=== PATIENT | male | born 1940 | race Caucasian/White ===

== ENCOUNTER → 2017-11-16 | Outpatient (CLI) | payer OTHER ==
[2017-11-16 16:45] LABS: BLOOD UREA NITROGEN 7 mg/dl (7-18); CREATININE 0.67 mg/dl (0.60-1.40)
== END | disposition home or self-care (01) ==
LOC: C.LABBFT 12:54
PROVIDERS: ATTEND Urology
DX: C61 Malignant neoplasm of prostate (principal); R33.9 Retention of urine, unspecified

== ENCOUNTER 2020-09-02 16:44 | Observation (INO) ==
[2020-09-02] MEDS ORDERED: ACETAMINOPHEN 325 MG TAB PO PRN (17:28)
[2020-09-02] MEDS ORDERED: ONDANSETRON INJ 2 MG/ML 2 ML VIAL IV PRN (17:28)
--- NOTE | 2020-09-02 17:32 | History & Physical Report ---
Date of Service September 02, 2020 Assessment & Plan (1) Bilateral lower extremity edema: With fairly recent onset of significant pitting edema lower extremities bilaterally of unknown etiology -Admit to medical floor with telemetry Could be from compressive pathology in the pelvis given his history of metastatic prostate cancer-will check CT abdomen/pelvis with IV contrast Could be developing cardiomyopathy-check echocardiogram, proBNP however hears normal -Checked urinalysis-no proteinuria noted and protein and albumin levels in the serum are fairly normal -Checked venous Dopplers of lower extremities-negative for DVT -Checked TSH-normal -will give 1 dose of IV Lasix 20 mg and observe for clinical improvement (2) PAC (premature atrial contraction): With frequent PACs and bigeminy on telemetry and ECG Check echocardiogram Continue to monitor on telemetry Continue home metoprolol (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 which was just changed out at the urology office on 09/03 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, specifically right acetabulum With mildly elevated alkaline phosphatase stable from previous, no bony pain PSA has recently significantly increased to the 80s Is on Zytiga, daily prednisone, and Xtandi Follow with oncology and urology Checking CT abdomen/pelvis as above for lower extremity edema Continue Zytiga and prednisone while here Continue PPI for GI prophylaxis while on chronic prednisone (5) Hyperlipidemia: Continue home statin (6) History of CVA (cerebrovascular accident): Patient reports suspected small CVA in the past Continue aspirin, statin Blood pressure control (7) Chronic indwelling Loredo catheter: As noted above Takes dicyclomine and oxybutynin as needed for bladder spasms (8) HTN (hypertension), benign: Blood pressures are well controlled Continue home metoprolol (9) Depression with anxiety: Stable Continue home paroxetine (10) Hypokalemia: Potassium 3.0 today-likely secondary to recent p.o. Lasix use Replace with p.o. potassium Follow BMP in the morning (11) DVT prophylaxis: Lovenox 40 mg SQ once daily Disposition-admit to medical floor with telemetry Admission and Anticipated Discharge Date Admission Date: September 02, 2020 History of Present Illness Chief Complaint: Lower extremity swelling Primary Care Provider: Shane Maldonado MD This patient is a 80-year-old male with a history of metastatic prostate cancer with mets to the bones and possibly lung, chronic indwelling Loredo for urinary retention, CVA, depression/anxiety, HTN, hyperlipidemia, who presents as a direct admission from the cancer center for significant lower extremity swelling that started several days ago. He was given p.o. Lasix which he took for the last 2 days which did not make improvements. He denies any shortness of breath or chest pains. He denies any abdominal distention. He has no history of congestive heart failure. He has no history of kidney problems. He does have prostate cancer and his PSA has gone up significantly fairly recently to the 80s. He denies any calf pain. He has been eating fairly regularly and not having issues with this and his albumin is fairly normal. His oncologist wanted him to be admitted to expedite the work-up for his lower extremity edema and to help get his swelling down with IV diuretics potentially. Allergies Allergy/AdvReac Type Severity Reaction Status Date / Time No Known Allergies Allergy Unverified 06/13/20 15:01 Home Medications Medication Instructions Recorded Confirmed Type aspirin [Aspirin Low Dose] 81 mg PO DAILY #0 01/10/18 09/02/20 History atorvastatin 40 mg PO HS #0 tab 01/10/18 09/02/20 History dicyclomine 20 mg PO QAM 30 Days #90 cap 01/10/18 09/02/20 History food supplemt, lactose-reduced 1 ea PO DAILY #0 01/10/18 09/02/20 History [Boost] loratadine 10 mg PO DAILY #0 tab 01/10/18 09/02/20 History polyethylene glycol 3350 [Miralax] 17 g PO DAILY #527 g 01/10/18 09/02/20 History psyllium husk (with sugar) [Fiber 1 tsp PO DAILY #0 01/10/18 09/02/20 History (psyllium husk/sugar)] ferrous sulfate 325 mg (65 mg 325 mg PO DAILY 01/08/20 09/02/20 History iron) tablet metoprolol tartrate 25 mg tablet 25 mg PO BID tab 01/08/20 09/02/20 History omeprazole 20 mg capsule,delayed 20 mg PO DAILY 01/08/20 09/02/20 History release paroxetine HCl 20 mg tablet 20 mg PO DAILY 01/08/20 09/02/20 History prednisone 5 mg tablet 5 mg PO DAILY 01/08/20 09/02/20 History oxybutynin chloride 5 mg tablet 5 mg PO BID PRN #60 tab 06/17/20 09/02/20 Rx abiraterone 250 mg tablet 1,000 mg PO DAILY 07/08/20 09/02/20 History leuprolide (6 month) [Lupron Depot 45 mg IM Q4WK 09/02/20 09/02/20 History (6 Month)] Past Med/Surg History Medical History Acute UTI Chronic indwelling Loredo catheter Depression with anxiety History of CVA (cerebrovascular accident) HTN (hypertension), benign Hyperlipidemia Prostate cancer (07/14/13) "Development of urinary difficulty, urinary retention, flaccid bladder, indwelling Loredo catheter PSA elevated at 15.360 July 14, 2013 Status post ultrasound core biopsies July 31, 2014 Adenocarcinoma [place] 3+3, 4+3, and 4+5 Initiation of Lupron therapy which continued until June 2017 Missed injection PSA radha to 89 Restart of Lupron therapy Recheck PSA September 29, 2017 0.390 PSA November 16, 2017 0.072" Surgical History H/O eye surgery History of prostate biopsy Hx of tonsillectomy Family History Sister Diabetes Nephrolithiasis Cancer Other No significant family history Social History Smoking Status: Never smoker Second Hand Exposure: No; Do You Dip or Chew Tobacco: No; Tobacco Cessation Education Requested by Patient: No Hx Alcohol Use: No Hx Substance Use: No Preferred Language: Andorran Communication Ability Comment: Hard of hearing 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 Beliefs That Will Affect Care: None marital status: Single Current Living Situation: Family Current Living Situation Comment: Lives with sister, patient states he cares for self current occupational status: retired Other Information That Helps Us Care for You: No Feels Safe at Home: Yes Safety Concerns: Feels Safe At This Time Assistive Devices: Cane Review of Systems Review of Systems: All systems reviewed & are unremarkable except as noted in HPI & below Denies nausea or vomiting, no diarrhea or constipation, no blood in the stool Physical Exam Constitutional: WD/WN, vitals as above Eyes: PERRL, conjunctivae normal, anicteric sclerae ENMT: external ear and nose normal, oropharynx normal Neck: trachea midline, no thyromegaly Respiratory: normal respiratory effort, lungs clear to auscultation Cardiovascular: Rate/Rhythm: regular rate and regular rhythm (With frequent ectopy) Heart Sounds: no murmur Extremities: + edema (3+ pitting edema of the lower extremities from the feet to the distal thigh); no calf tenderness (And negative Homans' sign) Chest (Breasts): Chest: normal inspection of chest Gastrointestinal (Abdomen): normal bowel sounds, soft, nontender, no hepatosplenomegaly Musculoskeletal: Extremities: no cyanosis and no clubbing Skin: no rashes, warm and dry Neurologic: moves all extremities and awake; no focal motor deficits Psychiatric: A+Ox3, euthymic affect Results & Data Results & Data ([facility]) Laboratory Results 09/02/20 09/02/20 Range/Units 23:40 17:55 Magnesium 2.3 (1.8-2.4) mg/dl NT-Pro-B Natriuret Pep 462 (0-1800) pg/ml TSH 1.030 (0.300-4.500) uIu/ml Urine Color Yellow Urine Appearance Clear (Clear) Urine pH 7.5 (4.5-7.5) Ur Specific [place] 1.012 (1.000-1.030) Urine Protein Negative (Negative) Urine Glucose (UA) Negative (Negative) Urine Ketones Negative (Negative) Urine Blood 1+ H (Negative) Urine Nitrite Negative (Negative) Urine Bilirubin Negative (Negative) Urine Urobilinogen Negative (Negative) Ur Leukocyte Esterase 3+ H (Negative) Urine WBC (Auto) 10-30 H (0-5) /hpf Urine RBC (Auto) 5-10 H (0-4) /hpf U Hyaline Cast (Auto) 5-10 H (0-5) /lpf U Epithel Cells (Auto) 0-5 (0-5) /lpf Urine Bacteria (Auto) 2+ H (Negative) ECG Additional Comments: ECG on 09/02 with normal sinus rhythm, rate 61, frequent PACs in a pattern of bigeminy Code Status & VTE Plan Code Status DNR/DNI VTE Prophylaxis Plan VTE Prophylaxis will be ordered: Yes PG Care Time/CCT Total # of Minutes Spent Total Time Spent with Patient: Total time spent is greater than 50% in coordination of care (as documented) at patient's floor/unit and/or counseling patient: Coding Level of Care Code 02437 Initial Inpt Care Lvl 3 Diagnoses Bilateral lower extremity edema R60.0 PAC (premature atrial contraction) I49.1 Retention of urine R33.9 Prostate cancer C61 Hyperlipidemia E78.5 History of CVA (cerebrovascular accident) Z86.73 Chronic indwelling Loredo catheter Z97.8 HTN (hypertension), benign I10 Depression with anxiety F41.8 Hypokalemia E87.6 DVT prophylaxis Z29.9
[2020-09-02] MEDS ORDERED: POTASSIUM CHLORIDE CRTAB 20 MEQ TABCR PO STA (17:39)
[2020-09-02] MEDS ORDERED: PATIENT'S HEIGHT AND/OR WEIGHT NEEDED SCH (17:45)
[2020-09-02 18:35] LABS: Magnesium 2.3 mg/dl (1.8-2.4); Thyroid Stimulating Hormone 1.03 uIu/ml (0.300-4.500)
[2020-09-02] MEDS ORDERED: OXYBUTYNIN CHLORIDE 5 MG TAB PO PRN (18:52)
[2020-09-02] MEDS ORDERED: FUROSEMIDE 20 MG in SYRINGE 0 ML IV ONE (19:30)
[2020-09-02] MEDS: ENOXAPARIN INJ 40 MG/0.4 ML SYR SQ SCH (20:01)
[2020-09-02] MEDS: ATORVASTATIN 40 MG TAB PO SCH (20:02)
[2020-09-02] MEDS: METOPROLOL TARTRATE 25 MG TAB PO SCH (20:02)
[2020-09-03 00:04] LABS: Appearance Urine Clear (Clear); Bacteria Urine Automated 2+ (Negative); Bilirubin Urine Negative (Negative); Blood Urine 1+ (Negative); Color Urine Yellow; Epithelial Cell Urine Auto 0-5 /lpf (0-5); Glucose Urine UA Negative (Negative); Ketones Urine Negative (Negative); Leukocyte Esterase Urine 3+ (Negative); Nitrite Urine Negative (Negative); Protein Urine Negative (Negative); Specific Gravity Urine 1.012 (1.000-1.030); Urobilinogen Urine Negative (Negative); pH Urine 7.5 (4.5-7.5)
--- NOTE | 2020-09-03 07:08 | Ultrasound Report ---
ULTRASOUND BILATERAL LOWER EXTREMITY VENOUS CLINICAL HISTORY: Lower extremity edema. COMPARISON STUDY: No priors. TECHNIQUE: Real-time, grayscale, and color Doppler sonography of the deep veins of the right and left lower extremity was performed from the inguinal crease to the calf. Compression and augmentation wer e utilized. FINDINGS: There is no sonographic evidence of deep venous thrombosis identified in the right or left lower extremity. The common femoral, superficial femoral, and popliteal veins are patent and normally compressible bilaterally. The greater saphenous vein and the profunda femoris vein at the junction w ith the common femoral vein are clear in both legs. The visualized calf veins are patent bilaterally. IMPRESSION: There is no sonographic evidence of deep venous thrombosis identified in the right or lef t lower extremity. ACT 112: Negative or not required by law. Electronically signed by: Colton Estrada M.D. 09/03/2020 7:07 AM
[2020-09-03 07:38] LABS: Albumin Level 2.5 gm/dl (3.4-5.0); BUN Creatinine Ratio 23.1 (10-20); Bilirubin,Total 0.7 mg/dl (0.2-1); Calcium 7.6 mg/dl (8.5-10.1); Creatinine Clr Calc Pharmacy 155.6 ml/min; Est GFR (African American) 136.7; Globulin 3.1 gm/dl (2.5-4.0); Potassium 2.1 mmol/L (3.5-5.1); Total Protein 5.6 gm/dl (6.4-8.2)
[2020-09-03] MEDS: ASPIRIN 81 MG ECTAB PO SCH (08:15)
[2020-09-03] MEDS: METOPROLOL TARTRATE 25 MG TAB PO SCH ×2 (08:15→20:14)
[2020-09-03] MEDS: DICYCLOMINE HCL 20 MG TAB PO SCH (08:16)
[2020-09-03] MEDS: PSYLLIUM 58.6% POWDER PACKET PO SCH ×2 (08:16→08:23)
[2020-09-03] MEDS: LORATADINE 10 MG TAB PO SCH (08:16)
[2020-09-03] MEDS: PARoxetine HCL 20 MG TAB PO SCH (08:20)
[2020-09-03] MEDS: predniSONE 5 MG TAB PO SCH (08:20)
[2020-09-03] MEDS: FERROUS SULFATE 325 MG TAB PO SCH (08:20)
[2020-09-03] MEDS: PANTOprazole 40 MG TAB PO SCH (08:20)
[2020-09-03 08:33] LABS: Albumin Globulin Ratio 0.8 (0.9-2)
[2020-09-03] MEDS ORDERED: NON-FORMULARY MEDICATION (Food Supplemt, Lactose-Reduced [Boost] 0.04 gram- 1 kcal/mL Liqu PO SCH (09:00)
[2020-09-03] MEDS ORDERED: ABIRATERONE 250 MG PO SCH (09:00)
[2020-09-03] MEDS ORDERED: POTASSIUM CHLORIDE CRTAB 20 MEQ TABCR PO ONE (09:15)
[2020-09-03] MEDS: POLYETHYLENE (MIRALAX) 17 GM PACK PO SCH (09:24)
[2020-09-03] MEDS: POTASSIUM CHLORIDE / WTR 10 MEQ/100 ML PLCT IV SCH ×3 (09:24→12:13)
--- NOTE | 2020-09-03 13:58 | XCELERA ---
[id number]
[2020-09-03] MEDS ORDERED: OPTIRAY 320 100ml IV ONE (14:02)
--- NOTE | 2020-09-03 14:25 | CT Scan Report ---
ABDOMEN AND PELVIS CT WITH IV CONTRAST CT DOSE: 773.44 mGycm HISTORY: met prostate CA,anasarca/LE edema TECHNIQUE: Multiaxial CT images of the abdomen and pelvis were performed following the use of intrave nous contrast. A dose lowering technique was utilized adhering to the principles of ALARA. COMPARISON STUDY: PET CT 11/28/2019. FINDINGS: Stable 4 mm subpleural nodule within the right upper lobe abutting the minor fissure on booker ge 6. A few patchy densities within the lung bases posteriorly favor atelectasis. Trace bilateral ple ural effusions. Small hiatus hernia. No pneumoperitoneum. No pneumatosis. Increase in size and number of the scattered osteoblastic metastatic lesions seen within the pelvis, sacrum, and ribs. The liver , spleen, adrenal glands, pancreas, and kidneys are unremarkable. The main portal vein is patent. No retroperitoneal lymphadenopathy. Mild diffuse body wall edema. There is a Loredo catheter within the b ladder. Moderate thickening of the bladder wall. Right-sided bladder diverticulum. There is a new nec rotic mass which along the posterior aspect of the bladder and prostate gland which measures approxim ately 4.4 x 3.3 cm in size. This appears to invade into the left posterior bladder wall, seminal vesi cles, and left posterior prostate gland. This also demonstrates a fingerlike extension within the lef t perirectal space and appears to abut and possibly invade into the left lateral rectal wall best see n on image 311. This abnormal soft tissue extension within the left perirectal space measures 2.6 cm. This could either represent metastatic disease or recurrent prostate malignancy. There is a single m ildly enlarged left external iliac lymph node on image 280 which measures 1.7 x 1.0 cm. This is new f rom the prior study and also likely represents metastatic disease. Colonic diverticulosis. No evidenc e for acute diverticulitis. Mildly distended gas and stool-filled colon. No transition point to sugge st a bowel obstruction. There is also abnormal thickening on the left bladder base on image 339 which could also represent additional areas of tumor extension into the bladder wall. IMPRESSION: 1. Interval development of a 4.4 x 3.3 cm necrotic lobular mass posterior to the left side of the aleena dder and prostate gland. This appears to invade into the left posterior bladder wall, left peripheral zone of the prostate gland, and seminal vesicles. This could represent metastatic disease or recurre nt prostate malignancy. There is also necrotic lobular soft tissue nodule within the left perirectal space which measures 2.6 cm and appears to abut/invade into the adjacent rectal wall. This is also co nsistent with metastatic disease. 2. A new single enlarged left external iliac lymph node likely representing metastatic disease. 3. Progressive osteoblastic metastatic disease. 4. Trace bilateral pleural effusions. 5. Mild body wall edema. 6. Additional findings as described above. ACT 112: Negative or not required by law. Electronically signed by: Len Robles M.D. 09/03/2020 2:24 PM
--- NOTE | 2020-09-03 16:06 | Electrocardiogram Report ---
Test Reason : Blood Pressure : / mmHG Vent. Rate : 061 BPM Atrial Rate : 061 BPM P-R Int : 160 ms QRS Dur : 092 ms QT Int : 450 ms P-R-T Axes : 043 -02 012 degrees QTc Int : 453 ms Sinus rhythm with Premature atrial complexes in a pattern of bigeminy Cannot rule out Anterior infarct , age undetermined Abnormal ECG No previous ECGs available Confirmed by Salvador Cason ([id number]) on 09/03/2020 4:05:30 PM Referred By: Rach Yadav Confirmed By:Salvador Cason
--- NOTE | 2020-09-03 17:31 | Hospitalist Progress Note ---
Date of Service September 03, 2020 Assessment & Plan (1) Hypokalemia: severe. IV KCL + PO replacement. recheck K and mag this evening, and replace further if necessary. then repeat BMP in am. 2nd to diuresis. (2) Bilateral lower extremity edema: Echo with preserved EF. TSH wnl. u/a without proteinuria. Mild hypoalbuminemia of 2.5 noted which could be contributing. Has varicose veins which can contribute. Abiraterone has listed side effect of edema/swelling. Prednisone can cause fluid retention. No DVT on dopplers. No evidence of liver disease. Based on CT abd/pelvis there does not appear to be compressive pathology in the pelvis causing the edema (no compression of IVC, iliacs, etc). s/p lasix IV yesterday evening with copious diuresis and improved edema. at discharge consider low-dose lasix. 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 Exchanged at the urology office on 09/03/20. 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, specifically right acetabulum With mildly elevated alkaline phosphatase stable from previous, no bony pain PSA has recently significantly increased to the 80s Is on Zytiga, daily prednisone, and Xtandi Follow with oncology and urology Continue Zytiga and prednisone while here Continue PPI for GI prophylaxis while on chronic prednisone CT abd/pelvis findings noted with worsening necrotic tumor (5) Hyperlipidemia: Continue home statin (6) History of CVA (cerebrovascular accident): Patient reports suspected small CVA in the past Continue aspirin, statin (7) Chronic indwelling Loredo catheter: Takes dicyclomine and oxybutynin as needed for bladder spasms (8) HTN (hypertension), benign: Continue home metoprolol (9) Depression with anxiety: Continue home paroxetine (10) DVT prophylaxis: Lovenox 40 mg SQ once daily if K is normal tomorrow am can d/c home then Admission and Anticipated Discharge Date Admission Date: September 02, 2020 Subjective patient eating dinner during the visit. offered no complaints. LE edema present for several weeks according to his recollection. much improved today s/p lasix last pm. flowsheets -- 3.5 L negative. denied any chest pain, abd pain, bladder pain/suprapubic pain, or pain in legs. denied dyspnea. Review of Systems Constitutional: no fever Respiratory: no cough and no dyspnea Cardiovascular: no chest pain Gastrointestinal: no nausea and no vomiting Physical Exam Constitutional: no acute distress and no altered mental status Eyes: strabismus right eye ENMT: external ear and nose normal, oropharynx normal Respiratory: normal respiratory effort, lungs clear to auscultation Cardiovascular: Rate/Rhythm: regular rate and regular rhythm Heart Sounds: normal S1 and normal S2; no murmur Vessels: posterior tibial pulses present and dorsalis pedis pulses present; no JVD Extremities: + edema (1+ B/l ) and + varicosities Gastrointestinal (Abdomen): normal bowel sounds, soft, nontender, no hepatosplenomegaly Psychiatric: Orientation: alert and oriented x 3 Results & Data Results & Data ([facility]) Vital Signs (Past 12 Hours) Vital Signs Temp Pulse Pulse Resp BP Pulse Ox 09/03/20 16:15 72 09/03/20 15:08 36.6 C 63 16 150/83 H 94 09/03/20 11:25 37.2 C 62 16 124/76 96 09/03/20 09:15 60 09/03/20 07:54 36.9 C 62 16 129/76 95 Laboratory Results Laboratory Results - last 24 hr 09/02/20 09/02/20 09/03/20 17:55 23:40 06:20 Sodium 140 Potassium 2.1 L* D Chloride 100 Carbon Dioxide 36 H Anion Gap 4.0 BUN 8 D Creatinine 0.36 L Est Cr Clr Drug Dosing 155.6 Est GFR ( Amer) 136.7 Est GFR (Non-Af Amer) 118.0 BUN/Creatinine Ratio 23.1 H Glucose 100 H Calcium 7.6 L Magnesium 2.3 Total Bilirubin 0.7 AST 46 H ALT 20 Alkaline Phosphatase 139 H NT-Pro-B Natriuret Pep 462 Total Protein 5.6 L Albumin 2.5 L Globulin 3.1 Albumin/Globulin Ratio 0.8 L TSH 1.030 Urine Color Yellow Urine Appearance Clear Urine pH 7.5 Ur Specific [place] 1.012 Urine Protein Negative Urine Glucose (UA) Negative Urine Ketones Negative Urine Blood 1+ H Urine Nitrite Negative Urine Bilirubin Negative Urine Urobilinogen Negative Ur Leukocyte Esterase 3+ H Urine WBC (Auto) 10-30 H Urine RBC (Auto) 5-10 H U Hyaline Cast (Auto) 5-10 H U Epithel Cells (Auto) 0-5 Urine Bacteria (Auto) 2+ H PG Care Time/CCT Total # of Minutes Spent Total Time Spent with Patient: Total time spent is greater than 50% in coordination of care (as documented) at patient's floor/unit and/or counseling patient: Coding Level of Care Code 36325 Subseq Hosp Care Lvl 2 Diagnoses Hypokalemia E87.6 Bilateral lower extremity edema R60.0 Retention of urine R33.9 Prostate cancer C61 Hyperlipidemia E78.5 History of CVA (cerebrovascular accident) Z86.73 Chronic indwelling Loredo catheter Z97.8 HTN (hypertension), benign I10 Depression with anxiety F41.8 DVT prophylaxis Z29.9
[2020-09-03 18:28] LABS: Magnesium 2.1 mg/dl (1.8-2.4)
[2020-09-03] MEDS ORDERED: POTASSIUM CHLORIDE CRTAB 20 MEQ TABCR PO STA (18:31)
[2020-09-03] MEDS: ENOXAPARIN INJ 40 MG/0.4 ML SYR SQ SCH (20:14)
[2020-09-03] MEDS: ATORVASTATIN 40 MG TAB PO SCH (20:14)
[2020-09-03] MEDS ORDERED: POTASSIUM CHLORIDE CRTAB 20 MEQ TABCR PO SCH (22:00)
[2020-09-04] MEDS ORDERED: POTASSIUM CHLORIDE CRTAB 20 MEQ TABCR PO STA ×2 (01:41→08:15)
[2020-09-04 07:31] LABS: Est GFR (African American) 128.3; Est GFR (Non-African American) 110.7; Potassium 3.5 mmol/L (3.5-5.1)
[2020-09-04 07:32] LABS: BUN Creatinine Ratio 16.8 (10-20); Creatinine Clr Calc Pharmacy 133.3 ml/min
[2020-09-04] MEDS: PANTOprazole 40 MG TAB PO SCH (08:57)
[2020-09-04] MEDS: ASPIRIN 81 MG ECTAB PO SCH (08:57)
[2020-09-04] MEDS: PARoxetine HCL 20 MG TAB PO SCH (08:57)
[2020-09-04] MEDS: predniSONE 5 MG TAB PO SCH (08:57)
[2020-09-04] MEDS: METOPROLOL TARTRATE 25 MG TAB PO SCH (08:57)
[2020-09-04] MEDS: FERROUS SULFATE 325 MG TAB PO SCH (08:57)
[2020-09-04] MEDS: LORATADINE 10 MG TAB PO SCH (08:57)
[2020-09-04] MEDS: DICYCLOMINE HCL 20 MG TAB PO SCH (08:58)
[2020-09-04] MEDS: POLYETHYLENE (MIRALAX) 17 GM PACK PO SCH (09:30)
--- NOTE | 2020-09-04 18:01 | Discharge Summary ---
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 He was given p.o. Lasix which he took for the last 2 days which did not make improvements. He denies any shortness of breath or chest pains. He denies any abdominal distention. He has no history of congestive heart failure. He has no history of kidney problems. He does have prostate cancer and his PSA has gone up significantly fairly recently to the 80s. He denies any calf pain. He has been eating fairly regularly and not having issues with this and his albumin is fairly normal. His oncologist wanted him to be admitted to expedite the work-up for his lower extremity edema and to help get his swelling down with IV diuretics potentially. Principal Diagnosis lower extremity edema - likely 2nd to prednisone use, hypoalbuminemia, +/- chemotherapy agents Discharge Exam Constitutional no acute distress and no altered mental status ENMT external ear and nose normal, oropharynx normal Respiratory normal respiratory effort, lungs clear to auscultation Cardiovascular Rate/Rhythm: regular rate and regular rhythm Heart Sounds: normal S1 and normal S2; no murmur Vessels: posterior tibial pulses present and dorsalis pedis pulses present; no JVD Extremities: + edema (<1+ B/l ) and + varicosities Gastrointestinal (Abdomen) normal bowel sounds, soft, nontender, no hepatosplenomegaly Psychiatric Orientation: alert and oriented x 3 Discharge Data Allergies Allergy/AdvReac Type Severity Reaction Status Date / Time No Known Allergies Allergy Unverified 06/13/20 15:01 Consultations physical therapy Ordered Studies 09/02/20 17:38 CT Abd and Pelvis [CT abd pelvis IV con only] Routine IMPRESSION: 1. Interval development of a 4.4 x 3.3 cm necrotic lobular mass posterior to the left side of the bladder and prostate gland. This appears to invade into the left posterior bladder wall, left peripheral zone of the prostate gland, and seminal vesicles. This could represent metastatic disease or recurrent prostate malignancy. There is also necrotic lobular soft tissue nodule within the left perirectal space which measures 2.6 cm and appears to abut/invade into the adjacent rectal wall. This is also consistent with metastatic disease. 2. A new single enlarged left external iliac lymph node likely representing metastatic disease. 3. Progressive osteoblastic metastatic disease. 4. Trace bilateral pleural effusions. 5. Mild body wall edema. 09/02/20 17:39 US venous doppler LE BI Urgent - no DVT either leg. Echocardiogram: * EF 60-65% * moderate LVH * no valvular dysfunction Hospital Course (1) Bilateral lower extremity edema: Edema likely was due to recent prednisone use, hypoalbuminemia, and possibly his chemotherapy agents for prostate cancer. Echo with preserved EF. TSH wnl. u/a without proteinuria. Mild hypoalbuminemia of 2.5 noted which could be contributing. Has varicose veins which can contribute. Abiraterone has listed side effect of edema/swelling. Prednisone can cause fluid retention. No DVT on dopplers. No evidence of liver disease. Based on CT abd/pelvis there does not appear to be compressive pathology in the pelvis causing the edema (no compression of IVC, iliacs, etc). The patient was given IV lasix and had copious diuresis during the short stay with significant improvement in his edema. At discharge he will use low-dose lasix on a PRN basis for edema/weight gain (2) Hypokalemia: Severe. Lowest level 2.1. Received IV KCL + PO replacement. 2nd to diuresis and perhaps other factors. Level was 3.5 at discharge. He will take potassium on a prn basis when he takes his lasix. 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 Loredo Exchanged at the urology office on 09/03/20. Continue Loredo catheter Continue follow-up with urology. (4) Prostate cancer: 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, specifically right acetabulum. With mildly elevated alkaline phosphatase stable from previous. No bony pain. PSA has recently significantly increased to the 80s. Is on Zytiga, daily prednisone, and Xtandi. CT abd/pelvis findings noted with worsening necrotic tumor - oncology aware. To f/u with Dr Adolfo Mix after discharge. (5) Hyperlipidemia: Continue home statin. (6) History of CVA (cerebrovascular accident): Patient reports suspected small CVA in the past. Continue aspirin, statin for secondary prevention. (7) Chronic indwelling Loredo catheter: Takes dicyclomine and oxybutynin as needed for bladder spasms. Follows with [facility] for this. Loredo last exchanged 09/03/20. (8) HTN (hypertension), benign: Continue home metoprolol (9) Depression with anxiety: Continue home paroxetine (10) Ambulatory dysfunction: seen by PT - rolling walker recommended in marielos of cane. cleared for home by PT. Total Time Total Time Spent Total Time Spent (In Minutes): 35 Total Time Includes: Examination of the Patient, Discharge Planning, Medication Reconciliation and Communication With Other Providers Discharge Plan Discharge Items Patient Disposition: Home - Home Health Services Reason For Visit: Swelling of Legs Discharge Diagnosis: Swelling of legs -- improved. Likely due to your prednisone and possibly your chemotherapy drugs. Low blood protein levels also may be contributing to the swelling. Activity: Resume your previous activity Non-emergency contact: Primary Care Provider and Oncologist Call non-emergency contact if: you have any medication questions and your symptoms worsen Follow-up/Referrals: Adolfo Mix DO [Physician] - (see Dr Mix in 5 days ) Shane Maldonado MD [Primary Care Provider] - (Please schedule in 5-7 days with the [facility]) Diet: Regular Addtl Attending Provider Instructions: Mr France, You were admitted for severe swelling of your legs. The swelling improved with use of "water pills" (diuretics). The cause of your swelling is likely a combination of low blood protein levels, prednisone use, and possibly your chemotherapy drugs for the prostate cancer. We did NOT find underactive thyroid gland, protein in your urine, liver disease, or congestive heart failure. These diseases can cause swelling. We also did NOT find blood clots in your legs. Blood clots can cause swelling, too. Again all of the above issues were ruled out. If you have swelling of the legs you can take, on an as needed basis, the following -- * furosemide 20mg every morning as needed If you have to take the furosemide please take a potassium supplement with it. Lastly, because of your varicose veins in your legs, wearing support hose/stockings can help with swelling as well. You can buy these at [employer] or [employer]. The physical therapist saw you today and have recommended you use a walker in place of your cane. The walker will be safer. They also recommended therapy at your home. Return to [facility] if - * you develop chest pain * you develop shortness of breath * you have worsening swelling of the legs despite taking your water pills (furosemide) * any other concerns It was our pleasure caring for you, -Dr Morales Pending Studies at Discharge: No Stand-Alone Forms: My [facility], Smoking Cessation Medications and DC Order Prescriptions: [facility]DME[facility] See Rx Instructions .ROUTE .MEDSUPPLY Qty: 1 RF: 0 furosemide [Lasix] 20 mg tablet 20 mg PO DAILY PRN (Reason: swelling of legs) Qty: 30 RF: 2 potassium chloride 20 mEq tablet extended release 20 meq PO DAILY PRN (Reason: when you take your water pill furosemide) Qty: 30 RF: 2 Continued atorvastatin 40 mg Tablet 40 mg PO HS Qty: 0 RF: 0 polyethylene glycol 3350 [Miralax] 17 gram Powder In Packet 17 g PO DAILY Qty: 527 RF: 0 aspirin [Aspirin Low Dose] 81 mg Tablet,Delayed Release (Dr/Ec) 81 mg PO DAILY Qty: 0 RF: 0 dicyclomine 20 mg Tablet 20 mg PO QAM 30 Days Qty: 90 RF: 11 Fiber (psyllium husk/sugar) 3.4 gram/11 gram Powder 1 tsp PO DAILY Qty: 0 RF: 0 Boost 0.04 gram- 1 kcal/mL Liquid 1 ea PO DAILY Qty: 0 RF: 0 loratadine 10 mg Tablet 10 mg PO DAILY Qty: 0 RF: 0 oxybutynin chloride 5 mg tablet 5 mg PO BID PRN (Reason: bladder spasms) Qty: 60 RF: 1 ferrous sulfate 325 mg (65 mg iron) tablet 325 mg PO DAILY RF: 0 metoprolol tartrate 25 mg tablet 25 mg PO BID RF: 0 omeprazole 20 mg capsule,delayed release(DR/EC) 20 mg PO DAILY RF: 0 paroxetine HCl 20 mg tablet 20 mg PO DAILY RF: 0 prednisone 5 mg tablet 5 mg PO DAILY RF: 0 Lupron Depot (6 Month) 45 mg syringe kit 45 mg IM Q4WK RF: 0 Discharge Orders: Discharge Order (Routine); Ordered 09/04/20 Ordered By: Eliu Morales Admission Data Admit Date/Time: 09/02/20 16:44 Attending Provider: Eliu Morales Admit Provider: Rach Yadav Primary Care Provider: Shane Maldonado Other Providers: [facility],Home Healthcare Other Interventions: Discharge Summary Assessment (RN) Last Done: 09/04/20 18:03 Coding Level of Care Code 99564 OBS Care - Discharge Diagnoses Bilateral lower extremity edema R60.0 Hypokalemia E87.6 Retention of urine R33.9 Prostate cancer C61 Hyperlipidemia E78.5 History of CVA (cerebrovascular accident) Z86.73 Chronic indwelling Loredo catheter Z97.8 HTN (hypertension), benign I10 Depression with anxiety F41.8 Ambulatory dysfunction R26.2
== END 2020-09-04 18:33 | disposition home health service (06) ==
LOC: INTOOBSV 16:44 → SUATTDRO 16:44 → 2N 16:44

== ENCOUNTER 2020-09-16 14:14 | Inpatient (IN) ==
--- NOTE | 2020-09-16 14:56 | Emergency Department Note ---
Impression & Plan Bilateral lower extremity edema, Prostate cancer, Acute hypokalemia, Acute hyponatremia ED Provider Note NAME: GLYNN OWUSU AGE: 80 SEX: M : 1940 ARRIVES VIA: Walk-In INFORMANT: Patient ED PROVIDER(S): Derick Nix DO CHIEF COMPLAINT: Swelling of the legs HPI: Patient is a 80-year-old male who presents to ER for swelling of his bilateral lower extremities. He has a history of prostate cancer. He has been following with Dr. Lamas as well [facility] He was recently admitted and discharged for swelling in the legs over a month ago. They have been getting worse over the past 2 weeks. Has been having trouble getting around. Denies any headache or change in vision. No chest pain or shortness of breath. No cough or runny nose. No loss of taste or smell. No other exacerbating or remitting factors other than the swelling which has been getting worse. Has been taking his Lasix 20 mg once a day and has not missed any doses. ROS: See above HPI for pertinent positives & negatives. A total of 10 systems reviewed and were otherwise negative. PAST MEDICAL HISTORY:See Below PAST SURGICAL HISTORY:See Below FAMILY HISTORY:See Below SOCIAL HISTORY:See Below HOME MEDICATIONS:See Below ALLERGIES:See Below VITALS:See Below PHYSICAL EXAMINATION: GENERAL: Sitting up in bed, alert, well appearing, well nourished, no distress, non-toxic EYE EXAM: normal conjunctiva. OROPHARYNX: no exudate, no erythema, lips, buccal mucosa, and tongue normal and mucous membranes are moist NECK: supple, no nuchal rigidity, no adenopathy, non-tender LUNGS: Clear to auscultation. Normal chest wall mechanics HEART: no murmurs, S1 normal and S2 normal ABDOMEN: abdomen soft, non-tender, normo-active bowel sounds, no masses, no rebound or guarding. BACK: Back is symmetrical on inspection and there is no deformity, no midline tenderness, no CVA tenderness. SKIN: no rashes and no bruising UPPER EXTREMITIES: upper extremities are grossly normal. LOWER EXTREMITIES: Pitting edema plus for bilateral lower extremities tracking up into the thighs NEURO EXAM: Normal sensorium, cranial nerves II-XII grossly intact, normal speech, no gross weakness of arms, no gross weakness of legs. MEDICAL DECISION MAKING: Patient is a 80-year-old male who presents ER for swelling of the lower extremities. IV was established blood work was obtained. [facility] Potassium was recently increased as an outpatient. Labs show no significant leukocytosis or anemia. BMP with mild hyponatremia has significant hypokalemia at 2.6. Calcium was low at 7.8. Bilirubin LFTs was unremarkable. proBNP was normal. Lipase was normal. Covid was negative. With the significant hypokalemia and the need to increase the Lasix did not feel was reasonable to discharge him at this time. He was given 40 mEq of oral potassium and 10 IV. He will eventually need Lasix but will hold off for now until potassium is repleted. Triage Nursing notes reviewed. Limited review of prior medical records performed Vital Signs: reviewed and remarkable for no significant abnormalities Differential diagnosis: Differential diagnoses includes but is not limited to acute coronary syndrome, myocardial infarction, pericarditis, pulmonary embolus, aortic dissection, pneumonia, pneumothorax, musculoskeletal, shingles, esophageal. ER treatment provided: See below Diagnostics interpreted by me: ECG: Sinus rhythm rate of 76 PVCs Inferior Q waves Septal Q waves QTC 474 Cardiac Monitoring: An order was placed for continuous cardiac monitoring. The monitor shows a rate of 80 with sinus rhythm. Laboratory studies: As stated above and show below. Imaging studies: Portable AP upright 1 view of the chest was unremarkable Consultation(s): Discussed with Dr. Sebastian Stokes for further evaluation Procedures: none Critical Care: None Past Med/Surg History Medical History Acute UTI Chronic indwelling Loredo catheter Depression with anxiety History of CVA (cerebrovascular accident) HTN (hypertension), benign Hyperlipidemia Prostate cancer (07/14/13) "Development of urinary difficulty, urinary retention, flaccid bladder, indwelling Loredo catheter PSA elevated at 15.360 July 14, 2013 Status post ultrasound core biopsies July 31, 2014 Adenocarcinoma [place] 3+3, 4+3, and 4+5 Initiation of Lupron therapy which continued until June 2017 Missed injection PSA radha to 89 Restart of Lupron therapy Recheck PSA September 29, 2017 0.390 PSA November 16, 2017 0.072" Surgical History H/O eye surgery History of prostate biopsy Hx of tonsillectomy Family History Sister Diabetes Nephrolithiasis Cancer Other No significant family history Social History Smoking Status: Never smoker Second Hand Exposure: No; Hx Alcohol Use: No Hx Substance Use: No Preferred Language: Serbian Communication Ability: Effective 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: No Beliefs That Will Affect Care: None marital status: Single Current Living Situation: Family Current Living Situation Comment: lives with sister current occupational status: retired Other Information That Helps Us Care for You: No Feels Safe at Home: Yes Safety Concerns: Feels Safe At This Time Assistive Devices: Glasses and Walker Allergies Allergies Allergy/AdvReac Type Severity Reaction Status Date / Time No Known Allergies Allergy Unverified 09/16/20 16:04 Home Meds Home Medications Medication Instructions Recorded Confirmed Boost 1 ea PO DAILY #0 01/10/18 09/16/20 Fiber (psyllium husk/sugar) 1 tsp PO DAILY #0 01/10/18 09/16/20 aspirin [Aspirin Low Dose] 81 mg PO DAILY #0 01/10/18 09/16/20 atorvastatin 40 mg PO QAM #0 tab 01/10/18 09/16/20 loratadine 10 mg PO DAILY PRN #0 tab 01/10/18 09/16/20 polyethylene glycol 3350 [Miralax] 17 g PO DAILY PRN #527 g 01/10/18 09/16/20 ferrous sulfate 325 mg (65 mg 325 mg PO DAILY 01/08/20 09/16/20 iron) tablet metoprolol tartrate 25 mg tablet 25 mg PO DAILY tab 01/08/20 09/16/20 omeprazole 20 mg capsule,delayed 20 mg PO DAILY 01/08/20 09/16/20 release paroxetine HCl 20 mg tablet 20 mg PO HS 01/08/20 09/16/20 prednisone 5 mg tablet 5 mg PO DAILY 01/08/20 09/16/20 Lupron Depot (6 Month) 0 mg IM .[id number] 09/02/20 09/16/20 amlodipine 2.5 mg PO DAILY 09/16/20 09/16/20 denosumab [Xgeva] 0 mg SUBCUT MO 09/16/20 09/16/20 dicyclomine 20 mg PO Q6 PRN 09/16/20 09/16/20 docusate sodium 300 mg PO DAILY 09/16/20 09/16/20 enzalutamide [Xtandi] 160 mg PO DAILY 09/16/20 09/16/20 potassium chloride 20 meq PO DAILY PRN 09/16/20 09/16/20 sennosides 50 mg PO .Q4DAYS PRN 09/16/20 09/16/20 vit C,H-Dv-cysil-lutein-zeaxan 2 tab PO DAILY 09/16/20 09/16/20 [PreserVision AREDS-2] Previous Rx's Medication Instructions Recorded oxybutynin chloride 5 mg tablet 5 mg PO BID PRN #60 tab 06/17/20 furosemide [Lasix] 20 mg PO DAILY PRN #30 tab 09/04/20 walker #1 ea 09/04/20 Results & Data (ED) Vital Signs Vital Signs - 24 hr 09/16/20 14:24 09/16/20 14:50 09/16/20 14:54 Temperature 36.5 C Temperature Source Temporal Artery Scan Pulse Rate 86 81 Pulse Rate [Left Finger] 81 Pulse Rate from SpO2 Sensor 82 Respiratory Rate 18 13 Blood Pressure 128/79 128/92 Blood Pressure [Right Arm] 128/92 Blood Pressure Mean 95 104 Blood Pressure Mean [Right Arm] 104 Blood Pressure Position [Right Arm] Sitting Pulse Oximetry 97 97 97 Oxygen Delivery Method Room Air Room Air Sepsis Recent Fever Within 48 Hours No Sepsis New/Unexplained Change in Mental Status No Sepsis Action Taken by Nursing No Action Required 09/16/20 16:16 09/16/20 16:30 09/16/20 17:00 Temperature Temperature Source Pulse Rate 74 72 77 Pulse Rate [Left Finger] Pulse Rate from SpO2 Sensor 74 71 74 Respiratory Rate 14 16 12 Blood Pressure 147/84 H 156/80 H 123/90 Blood Pressure [Right Arm] Blood Pressure Mean 105 105 101 Blood Pressure Mean [Right Arm] Blood Pressure Position [Right Arm] Pulse Oximetry 100 99 99 Oxygen Delivery Method Sepsis Recent Fever Within 48 Hours Sepsis New/Unexplained Change in Mental Status Sepsis Action Taken by Nursing 09/16/20 17:30 Temperature Temperature Source Pulse Rate 98 H Pulse Rate [Left Finger] Pulse Rate from SpO2 Sensor 97 H Respiratory Rate 18 Blood Pressure 130/94 Blood Pressure [Right Arm] Blood Pressure Mean 106 Blood Pressure Mean [Right Arm] Blood Pressure Position [Right Arm] Pulse Oximetry 96 Oxygen Delivery Method Sepsis Recent Fever Within 48 Hours Sepsis New/Unexplained Change in Mental Status Sepsis Action Taken by Nursing Laboratory Data Result diagrams: 09/16/20 16:13 09/16/20 16:13 Lab Results 09/16/20 09/16/20 09/16/20 Range/Units 16:13 16:13 16:13 WBC 8.53 (4.8-10.8) K/uL RBC 4.40 L (4.7-6.1) M/uL Hgb 13.1 L (14.0-18.0) g/dL Hct 38.3 L (42-52) % MCV 87.0 (80-100) fL MCH 29.8 (25-34) pg MCHC 34.2 (32-36) g/dL RDW Std Deviation 42.4 (36.4-46.3) fL RDW Coeff of Pardeep 13.2 (11.5-14.5) % Plt Count 267 (130-400) K/uL MPV 9.5 (7.4-10.4) fL Immature Gran % (Auto) 0.2 % Neut % (Auto) 85.9 % Lymph % (Auto) 11.1 % Preston % (Auto) 2.8 % Eos % (Auto) 0.0 % Baso % (Auto) 0.0 % Neut # (Auto) 7.32 H (1.4-6.5) K/uL Lymph # (Auto) 0.95 L (1.2-3.4) K/uL Preston # (Auto) 0.24 (0.11-0.59) K/uL Eos # (Auto) 0.00 (0-0.5) K/uL Baso # (Auto) 0.00 (0-0.2) K/uL Immature Gran # (Auto) 0.02 (0.00-0.02) K/uL Sodium 135 L (136-145) mmol/L Potassium 2.6 L (3.5-5.1) mmol/L Chloride 97 L (98-107) mmol/L Carbon Dioxide 34 H (21-32) mmol/L Anion Gap 4.0 (3-11) BUN 15 (7-18) mg/dl Creatinine 0.62 (0.6-1.4) mg/dl Est Cr Clr Drug Dosing Not Reportable Est GFR ( Amer) 109.4 Est GFR (Non-Af Amer) 94.4 BUN/Creatinine Ratio 23.8 H (10-20) Glucose 109 H (70-99) mg/dl Calcium 7.8 L (8.5-10.1) mg/dl Total Bilirubin 0.8 (0.2-1) mg/dl AST 58 H (15-37) U/L ALT 32 (12-78) U/L Alkaline Phosphatase 152 H (45-117) U/L Troponin I 0.026 (0-0.045) ng/ml NT-Pro-B Natriuret Pep 522 (0-1800) pg/ml Total Protein 6.5 (6.4-8.2) gm/dl Albumin 3.0 L (3.4-5.0) gm/dl Globulin 3.5 (2.5-4.0) gm/dl Albumin/Globulin Ratio 0.9 (0.9-2) Lipase 251 (73-393) U/L Random Cortisol 51.72 mcg/dl COVID-19 Eval Order SARS-CoV-2 (PCR) (Negative) Influenza Type A (PCR) (Neg) Influenza Type B (PCR) (Neg) RSV (RT-PCR) (Neg) 09/16/20 09/16/20 Range/Units 17:30 17:30 WBC (4.8-10.8) K/uL RBC (4.7-6.1) M/uL Hgb (14.0-18.0) g/dL Hct (42-52) % MCV (80-100) fL MCH (25-34) pg MCHC (32-36) g/dL RDW Std Deviation (36.4-46.3) fL RDW Coeff of Pardeep (11.5-14.5) % Plt Count (130-400) K/uL MPV (7.4-10.4) fL Immature Gran % (Auto) % Neut % (Auto) % Lymph % (Auto) % Preston % (Auto) % Eos % (Auto) % Baso % (Auto) % Neut # (Auto) (1.4-6.5) K/uL Lymph # (Auto) (1.2-3.4) K/uL Preston # (Auto) (0.11-0.59) K/uL Eos # (Auto) (0-0.5) K/uL Baso # (Auto) (0-0.2) K/uL Immature Gran # (Auto) (0.00-0.02) K/uL Sodium (136-145) mmol/L Potassium (3.5-5.1) mmol/L Chloride (98-107) mmol/L Carbon Dioxide (21-32) mmol/L Anion Gap (3-11) BUN (7-18) mg/dl Creatinine (0.6-1.4) mg/dl Est Cr Clr Drug Dosing Est GFR ( Amer) Est GFR (Non-Af Amer) BUN/Creatinine Ratio (10-20) Glucose (70-99) mg/dl Calcium (8.5-10.1) mg/dl Total Bilirubin (0.2-1) mg/dl AST (15-37) U/L ALT (12-78) U/L Alkaline Phosphatase (45-117) U/L Troponin I (0-0.045) ng/ml NT-Pro-B Natriuret Pep (0-1800) pg/ml Total Protein (6.4-8.2) gm/dl Albumin (3.4-5.0) gm/dl Globulin (2.5-4.0) gm/dl Albumin/Globulin Ratio (0.9-2) Lipase (73-393) U/L Random Cortisol mcg/dl COVID-19 Eval Order CovFluRsv at [facility] SARS-CoV-2 (PCR) NEGATIVE (Negative) Influenza Type A (PCR) Negative (Neg) Influenza Type B (PCR) Negative (Neg) RSV (RT-PCR) Negative (Neg) Administered Medications Discontinued Medications Potassium Chloride (K Lazaro / Wtr) 10 meq in 100 mls @ 100 mls/hr IV Q1H FARHANA Stop: 09/16/20 19:14 Last Admin: 09/16/20 19:41 Dose: 100 mls/hr Documented by: [id number] Infusion: 09/16/20 19:05 Dose: 100 mls/hr Documented by: [id number] Admin: 09/16/20 18:05 Dose: 100 mls/hr Documented by: [id number] Magnesium Sulfate/Dextrose (Magnesium Sulfate / D5w) 1 gm in 100 mls @ 50 mls/hr IV ONE ONE Stop: 09/16/20 19:46 Last Admin: 09/16/20 18:04 Dose: 50 mls/hr Documented by: [id number] Potassium Chloride (Potassium Chloride Crtab 20 Meq Tabcr) 40 meq PO NOW STA Stop: 09/16/20 17:14 Last Admin: 09/16/20 17:56 Dose: 40 meq Documented by: [id number] Discharge Plan Visit Data Chief Complaint: Swelling/Edema to Extremity Stated Complaint: SWELLING/SEEPING IN BOTH LEGS ED Provider: Derick Nix Discharge Problem: Bilateral lower extremity edema, Prostate cancer, Acute hypokalemia, Acute hyponatremia Patient Disposition: Admitted As Inpatient Discharge Instructions Interventions: ED Discharge Assessment Last Done: 09/16/20 19:05
--- NOTE | 2020-09-16 15:11 | XRay Report ---
XR chest 1V portable HISTORY: Atypical Chest Pain COMPARISON: Chest CT 05/26/2020. FINDINGS: No pneumothorax. No pleural effusions. The heart is normal in size. There is a tortuous tho racic aorta, unchanged. No new focal lung consolidations to suggest pneumonia. No evidence for pulmon heladio edema. Old, healed right-sided rib fractures. Prior internal fixation of a right clavicle fractur e. The patient's known pulmonary nodules are now well visualized by this modality. IMPRESSION: No acute process. ACT 112: Negative or not required by law. Electronically signed by: Len Robles M.D. 09/16/2020 3:10 PM
[2020-09-16 16:33] LABS: Hematocrit (blood only) 38.3 % (42-52); Hemoglobin 13.1 g/dL (14.0-18.0); Immature Granulocytes # (auto) 0.02 K/uL (0.00-0.02); Immature Granulocytes % (auto) 0.2 %; Lymphocytes # (auto) 0.95 K/uL (1.2-3.4); Lymphocytes % (auto) 11.1 %; Mean Corpuscular Hemoglobin 29.8 pg (25-34); Mean Corpuscular Hgb Conc 34.2 g/dL (32-36); Mean Platelet Volume 9.5 fL (7.4-10.4); Monocytes # (auto) 0.24 K/uL (0.11-0.59); Monocytes % (auto) 2.8 %; Neutrophils # (auto) 7.32 K/uL (1.4-6.5); Neutrophils % (auto) 85.9 %; Platelet Count 267 K/uL (130-400); RDW Coefficient of Variation 13.2 % (11.5-14.5); RDW Standard Deviation 42.4 fL (36.4-46.3); White Blood Count 8.53 K/uL (4.8-10.8)
[2020-09-16 16:49] LABS: Alanine Aminotransferase 32 U/L (12-78); Aspartate Aminotransferase 58 U/L (15-37); BUN Creatinine Ratio 23.8 (10-20); Blood Urea Nitrogen 15 mg/dl (7-18); Calcium 7.8 mg/dl (8.5-10.1); Carbon Dioxide 34 mmol/L (21-32); Chloride 97 mmol/L (98-107); Est GFR (African American) 109.4; Est GFR (Non-African American) 94.4; Glucose 109 mg/dl (70-99); Lipase 251 U/L (73-393); Potassium 2.6 mmol/L (3.5-5.1); Sodium 135 mmol/L (136-145)
[2020-09-16 16:54] LABS: Albumin Globulin Ratio 0.9 (0.9-2); Alkaline Phosphatase 152 U/L (45-117); Bilirubin,Total 0.8 mg/dl (0.2-1); Globulin 3.5 gm/dl (2.5-4.0); NT Pro B Type Natriuretic Pept 522 pg/ml (0-1800); Total Protein 6.5 gm/dl (6.4-8.2); Troponin I 0.026 ng/ml (0-0.045)
[2020-09-16] MEDS ORDERED: POTASSIUM CHLORIDE CRTAB 20 MEQ TABCR PO STA (17:13)
--- NOTE | 2020-09-16 17:35 | History & Physical Report ---
Date of Service September 16, 2020 Assessment & Plan (1) Bilateral lower extremity edema: Patient once again returned with significant lower extremity edema causing ambulatory dysfunction. During his last admission he had compressive lymphadenopathy ruled out with CT abdomen pelvis with IV contrast. Echocardiogram showed preserved systolic function. No significant proteinuria is noted on urinalysis although nutritionally he has low albumin which could contribute to third space fluid. At that time he had a negative venous Doppler study as well as a normal TSH. Patient will be diuresed with Lasix augmented with copious amounts of potassium magnesium and once again have a Doppler study to rule out DVT as he is at risk given his malignancy. Patient states he lives with friends he is unclear whether he was taking any diuretic or not. 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 No significant bony pending at this time. Follows with oncology neurology. Is on Lupron injections and previously was on Xtandi and Xgeva. He is on daily prednisone therapy at 5 and we will check random and an a.m. cortisol continue his Xgeva while in the hospital (3) Urinary retention: Patient has a chronic indwelling Loredo catheter (4) Dyslipidemia: Continues on atorvastatin (5) Hypertension: Continues on metoprolol for secondary risk reduction with aspirin and statin as mentioned (6) Depression with anxiety: reMains on paroxetine (7) DVT prophylaxis: Lovenox for DVT prevention History of Present Illness Primary Care Provider: Issac Morton MD 80-year-old male recently discharged on 04 September for [facility] after presenting with massive bilateral lower extremity swelling and hypokalemia. The patient has associated metastatic prostate cancer with mets to bones possibly lung. He is a longstanding indwelling Loredo catheter and during that last admission he was chronically hypoalbuminemic. At that time he had CT scan abdomen pelvis which showed necrotic mass associate with his prostate. No compressive lymphadenopathy in his abdomen. There is no evidence of any renal thromboembolism causing lower extremity swelling. An echocardiogram had preserv ed systolic function. During hospital stay he was diuresed with Lasix and sent out on Lasix and potassium however he represents 09/16/2020 with progressive swelling over the last 2 weeks and massive edema causing ambulation problems. He is known to have a potassium of 2.6 is once again recommended for admission to intensive medicine lower extremity swelling. Allergies Allergy/AdvReac Type Severity Reaction Status Date / Time No Known Allergies Allergy Unverified 09/16/20 16:04 Home Medications Medication Instructions Recorded Confirmed Type Boost 1 ea PO DAILY #0 01/10/18 09/16/20 History Fiber (psyllium husk/sugar) 1 tsp PO DAILY #0 01/10/18 09/16/20 History aspirin [Aspirin Low Dose] 81 mg PO DAILY #0 01/10/18 09/16/20 History atorvastatin 40 mg PO QAM #0 tab 01/10/18 09/16/20 History loratadine 10 mg PO DAILY PRN #0 tab 01/10/18 09/16/20 History polyethylene glycol 3350 [Miralax] 17 g PO DAILY PRN #527 g 01/10/18 09/16/20 History ferrous sulfate 325 mg (65 mg 325 mg PO DAILY 01/08/20 09/16/20 History iron) tablet metoprolol tartrate 25 mg tablet 25 mg PO DAILY tab 01/08/20 09/16/20 History omeprazole 20 mg capsule,delayed 20 mg PO DAILY 01/08/20 09/16/20 History release paroxetine HCl 20 mg tablet 20 mg PO HS 01/08/20 09/16/20 History prednisone 5 mg tablet 5 mg PO DAILY 01/08/20 09/16/20 History oxybutynin chloride 5 mg tablet 5 mg PO BID PRN #60 tab 06/17/20 09/16/20 Rx Lupron Depot (6 Month) 0 mg IM .[id number] 09/02/20 09/16/20 History furosemide [Lasix] 20 mg PO DAILY PRN #30 tab 09/04/20 09/16/20 Rx walker #1 ea 09/04/20 09/16/20 Rx amlodipine 2.5 mg PO DAILY 09/16/20 09/16/20 History denosumab [Xgeva] 0 mg SUBCUT MO 09/16/20 09/16/20 History dicyclomine 20 mg PO Q6 PRN 09/16/20 09/16/20 History docusate sodium 300 mg PO DAILY 09/16/20 09/16/20 History enzalutamide [Xtandi] 160 mg PO DAILY 09/16/20 09/16/20 History potassium chloride 20 meq PO DAILY PRN 09/16/20 09/16/20 History sennosides 50 mg PO .[id number] PRN 09/16/20 09/16/20 History vit C,R-Gn-beypn-lutein-zeaxan 2 tab PO DAILY 09/16/20 09/16/20 History [PreserVision AREDS-2] Past Med/Surg History Medical History Acute UTI Chronic indwelling Loredo catheter Depression with anxiety History of CVA (cerebrovascular accident) HTN (hypertension), benign Hyperlipidemia Prostate cancer (07/14/13) "Development of urinary difficulty, urinary retention, flaccid bladder, indwelling Loredo catheter PSA elevated at 15.360 July 14, 2013 Status post ultrasound core biopsies July 31, 2014 Adenocarcinoma Mirella 3+3, 4+3, and 4+5 Initiation of Lupron therapy which continued until June 2017 Missed injection PSA radha to 89 Restart of Lupron therapy Recheck PSA September 29, 2017 0.390 PSA November 16, 2017 0.072" Surgical History H/O eye surgery History of prostate biopsy Hx of tonsillectomy Family History Sister Diabetes Nephrolithiasis Cancer Other No significant family history Social History Smoking Status: Never smoker Second Hand Exposure: No; Hx Alcohol Use: No Hx Substance Use: No Preferred Language: Macedonian Communication Ability: Effective Mini Shifter Required: No Beliefs That Will Affect Care: None marital status: Single Current Living Situation: Family Current Living Situation Comment: Lives with sister, patient states he cares for self current occupational status: retired Feels Safe at Home: Yes Assistive Devices: Cane Review of Systems Review of Systems: Mild distress and fatigue patient mostly bothered by lower extremity swelling and weight no headache, blurry or double vision no speech or swallowing issues no chest pain, pressure or palpitations no shortness of breath, cough or wheezes no abdominal pain, nausea or vomiting, diarrhea or constipation has a chronic urinary catheter no focal joint pain navicular extremity swelling ambulatory dysfunction because of it no back pain, CVA tenderness or radicular pain no bruising, bleeding or rashes no focal signs of weakness or numbness or altered sensation no complaints of anxiety or depression.. Physical Exam Physical Exam: The patient appeared chronically ill not well informed regarding his medical care or treatment Vital signs as documented. Head exam is normocephalic atraumatic no scleral icterus Neck is without JVD, thyromegaly, or carotid bruits. Lungs are clear to auscultation, no focal loss of breath sounds Cardiac exam, Rhythm is regular.. No murmurs, rubs or gallops. Abdominal exam reveals normal bowel sounds, soft non tender, no masses Extremities massive pretibial and pedal edema is present no complaints of pain or focal loss one side versus the other No complaints of hip pain at site of metastatic disease Skin is with minor skin changes to his lower extremities Psychologically is without concerns for anxiety or depression Results & Data Results & [facility] ([facility]) Vital Signs (Past 12 Hours) Vital Signs Temp Pulse Pulse Resp BP BP Pulse Ox 09/16/20 14:54 97 09/16/20 14:50 81 17 128/92 98 09/16/20 14:24 97.7 F 86 18 128/79 97 PG Care Time/CCT Total # of Minutes Spent Total Time Spent with Patient: Total time spent is greater than 50% in coordination of care (as documented) at patient's floor/unit and/or counseling patient: Coding Level of Care Code 15662 Initial Inpt Care Lvl 3 Diagnoses Bilateral lower extremity edema R60.0 Prostate cancer C61 Urinary retention R33.9 Dyslipidemia E78.5 Hypertension I10 Depression with anxiety F41.8 DVT prophylaxis Z29.9
[2020-09-16] MEDS ORDERED: MAGNESIUM SULFATE / D5W 1 GM/100 ML BAG IV ONE (17:47)
[2020-09-16] MEDS: POTASSIUM CHLORIDE / WTR 10 MEQ/100 ML PLCT IV SCH ×2 (18:05→19:41)
[2020-09-16 18:30] LABS: Influenza A virus by PCR Negative (Neg); Influenza B virus by PCR Negative (Neg); RSV by PCR Negative (Neg); SARS CoV2 RNA(COVID-19) InHosp NEGATIVE (Negative)
--- NOTE | 2020-09-16 19:25 | Ultrasound Report ---
BILATERAL LOWER EXTREMITY VENOUS DOPPLER HISTORY: bilateral lower extremity edema COMPARISON STUDY: None. FINDINGS: There is normal compressibility, flow, and augmentation within the bilateral lower extremit y deep venous systems. IMPRESSION: No DVT within the right or left lower extremity. ACT 112: Negative or not required by law. Electronically signed by: Len Robles M.D. 09/16/2020 7:23 PM
[2020-09-16] MEDS ORDERED: ACETAMINOPHEN 325 MG TAB PO PRN (19:39)
[2020-09-16] MEDS ORDERED: ALUMINUM/MAGNESIUM SUSP 30 ML UDC PO PRN (19:39)
[2020-09-16] MEDS ORDERED: PATIENT'S HEIGHT AND/OR WEIGHT NEEDED SCH (19:45)
[2020-09-16] MEDS ORDERED: FUROSEMIDE 40 MG/4 ML VIAL IV SCH (21:00)
[2020-09-16] MEDS: POTASSIUM CHLORIDE CRTAB 20 MEQ TABCR PO SCH (21:37)
[2020-09-16] MEDS: ENOXAPARIN INJ 40 MG/0.4 ML SYR SQ SCH (21:37)
[2020-09-16] MEDS: PARoxetine HCL 20 MG TAB PO SCH (21:37)
[2020-09-17 07:50] LABS: BUN Creatinine Ratio 24.6 (10-20); Calcium 7.5 mg/dl (8.5-10.1); Creatinine Clr Calc Pharmacy 142.6 ml/min; Est GFR (African American) 128.3; Est GFR (Non-African American) 110.7; Magnesium 2.1 mg/dl (1.8-2.4); Potassium 2.7 mmol/L (3.5-5.1)
[2020-09-17] MEDS: PSYLLIUM 58.6% POWDER PACKET PO SCH (08:34)
[2020-09-17] MEDS: ASPIRIN 81 MG ECTAB PO SCH (08:35)
[2020-09-17] MEDS: DOCUSATE SODIUM 100 MG CAP PO SCH (08:35)
[2020-09-17] MEDS: POTASSIUM CHLORIDE CRTAB 20 MEQ TABCR PO SCH ×2 (08:36→20:25)
[2020-09-17] MEDS: METOPROLOL TARTRATE 25 MG TAB PO SCH (08:37)
[2020-09-17] MEDS: ATORVASTATIN 40 MG TAB PO SCH (08:37)
[2020-09-17] MEDS: amLODIPine BESYLATE 5 MG TAB PO SCH (08:37)
[2020-09-17] MEDS: predniSONE 5 MG TAB PO SCH (08:38)
[2020-09-17] MEDS: PANTOprazole 40 MG TAB PO SCH (08:38)
[2020-09-17] MEDS ORDERED: NON-FORMULARY MEDICATION (Food Supplemt, Lactose-Reduced [Boost] 0.04 gram- 1 kcal/mL Liqu PO SCH (09:00)
[2020-09-17 11:37] LABS: BUN Creatinine Ratio 17.1 (10-20); Calcium 7.5 mg/dl (8.5-10.1); Creatinine Clr Calc Pharmacy 105.1 ml/min; Est GFR (African American) 113.2; Est GFR (Non-African American) 97.7; Potassium 2.9 mmol/L (3.5-5.1)
[2020-09-17] MEDS: FUROSEMIDE 40 MG in SYRINGE 0 ML IV SCH ×2 (12:37→20:24)
--- NOTE | 2020-09-17 12:53 | Electrocardiogram Report ---
Test Reason : Blood Pressure : / mmHG Vent. Rate : 076 BPM Atrial Rate : 076 BPM P-R Int : 142 ms QRS Dur : 084 ms QT Int : 422 ms P-R-T Axes : 029 -15 018 degrees QTc Int : 474 ms Sinus rhythm with Premature atrial complexes with Aberrant conduction Abnormal ECG When compared with ECG of 02-SEP-2020 21:45, No significant change was found Confirmed by David Lozano ([id number]) on 09/17/2020 12:52:46 PM Referred By: ED Confirmed By:Bolivar Lozano
[2020-09-17] MEDS ORDERED: POTASSIUM CHLORIDE CRTAB 20 MEQ TABCR PO STA (14:16)
--- NOTE | 2020-09-17 16:15 | Hospitalist Progress Note ---
Date of Service September 17, 2020 Assessment & Plan (1) Bilateral lower extremity edema: Patient once again returned with significant lower extremity edema causing ambulatory dysfunction. During his last admission he had compressive lymphadenopathy ruled out with CT abdomen pelvis with IV contrast. Echocardiogram (09-03-20) showed preserved systolic function. No significant proteinuria is noted on urinalysis although nutritionally he has low albumin which could contribute to third space fluid. At that time, normal TSH. Patient will be diuresed with Lasix augmented with copious amounts of potassium magnesium Patient states he lives with friends he is unclear whether he was taking any diuretic or not. 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 No significant bony pending at this time. Follows with oncology neurology. Is on Lupron injections and previously was on Xtandi and Xgeva. He is on daily prednisone therapy at 5 and we will check random and an a.m. cortisol continue his Xgeva while in the hospital (4) Urinary retention: Patient has a chronic indwelling Loredo catheter (5) Dyslipidemia: Continues on atorvastatin (6) Hypertension: Continues on metoprolol for secondary risk reduction with aspirin and statin as mentioned (7) Depression with anxiety: reMains on paroxetine (8) DVT prophylaxis: Lovenox for DVT prevention Admission and Anticipated Discharge Date Admission Date: September 16, 2020 Subjective Patient reports 1 week of worsening lower extremity edema in both legs Denies sob, cough, dysuria No fever or chills NO change in appetite Denies calf pain Review of Systems Constitutional: no fever, no chills, no fatigue, no weakness, no anorexia, no weight loss and no weight gain Ear, Nose, Mouth, Throat: no nasal congestion, no sore throat and no dysphagia Respiratory: no cough and no dyspnea Cardiovascular: + edema; no chest pain, no dyspnea on exertion, no orthopnea and no palpitations Gastrointestinal: no abdominal pain, no nausea, no vomiting, no hematemesis, no dysphagia, no constipation, no diarrhea/loose stools, no blood in stools and no melena Genitourinary: no dysuria and no hematuria Musculoskeletal: no back pain, no joint pain, no myalgia and no muscle weakness Integumentary: no rash, no lesions, no skin ulcer, no erythema, no dry skin and no pruritus Neurologic: no falls, no localized weakness, no generalized weakness, no numbness, no paresthesia, no tremor(s) and no headache(s) Psychiatric: no depression, no suicidal ideation, no homicidal ideation and no anxiety Endocrine: no cold intolerance and no heat intolerance Hematologic / Lymphatic: no easy bleeding and no easy bruising Physical Exam Constitutional: well developed and well nourished; no acute distress Eyes: PERRL, conjunctivae normal, anicteric sclerae ENMT: Mouth: oral mucous membranes not dry Respiratory: normal respiratory effort; no respiratory distress and no labored breathing Auscultation: lungs clear to auscultation bilaterally; no crackles, no rales, no rhonchi and no wheezes Cardiovascular: Rate/Rhythm: regular rate and regular rhythm Heart Sounds: no murmur and no cardiac rub Vessels: normal peripheral pulses and radial pulses present; no JVD Extremities: + edema (3+ bilateral LE edema) Gastrointestinal (Abdomen): Inspection/Auscultation: abdomen normal to inspection and normal bowel sounds; abdomen not distended Percussion/Palpation: abdomen soft; abdomen nontender, no guarding, abdomen not rigid and no hepatosplenomegaly Musculoskeletal: Head/Neck/Chest: normocephalic and head atraumatic Spine: no cervical spinal tenderness, no cervical muscular tenderness, no thoracic spinal tenderness and no lumbar spinal tenderness Skin: no rashes, warm and dry Neurologic: CN's II-XI intact bilaterally and moves all extremities Motor/Sensory: no tremor and no sensory deficit Psychiatric: Orientation: alert, oriented to person, oriented to place and oriented to time Apperance: appropriately groomed; not disheveled Affect: euthymic affect; no anxious affect and no tearful affect Genitourinary: no Loredo catheter Results & Data Results & Data ([facility]) Vital Signs (Past 12 Hours) Vital Signs Temp Pulse Pulse Resp BP Pulse Ox 09/17/20 15:46 36.9 C 82 16 153/82 H 97 09/17/20 11:24 36.3 C L 66 16 149/79 H 93 09/17/20 08:00 90 09/17/20 07:31 36.8 C 73 16 141/80 H 94 PG Care Time/CCT Total # of Minutes Spent Total Time Spent with Patient: Total time spent is greater than 50% in coordination of care (as documented) at patient's floor/unit and/or counseling patient: Coding Level of Care Code 20404 Subseq Hosp Care Lvl 2 Diagnoses Bilateral lower extremity edema R60.0 Acute hypokalemia E87.6 Prostate cancer C61 Urinary retention R33.9 Dyslipidemia E78.5 Hypertension I10 Depression with anxiety F41.8 DVT prophylaxis Z29.9
[2020-09-17] MEDS: XTANDI: ORDER AWAITING ACTION SCH ×2 (19:15→23:35)
[2020-09-17] MEDS: PARoxetine HCL 20 MG TAB PO SCH (20:25)
[2020-09-17] MEDS: ENOXAPARIN INJ 40 MG/0.4 ML SYR SQ SCH (20:25)
[2020-09-18 07:11] LABS: Hematocrit (blood only) 37.5 % (42-52); Mean Corpuscular Hgb Conc 34.7 g/dL (32-36); Mean Corpuscular Volume 86.4 fL (80-100); Mean Platelet Volume 9.2 fL (7.4-10.4); Platelet Count 242 K/uL (130-400); RDW Standard Deviation 41.5 fL (36.4-46.3); Red Blood Count 4.34 M/uL (4.7-6.1); White Blood Count 7.47 K/uL (4.8-10.8)
[2020-09-18 07:41] LABS: BUN Creatinine Ratio 18.5 (10-20); Calcium 7.1 mg/dl (8.5-10.1); Creatinine Clr Calc Pharmacy 161.9 ml/min; Est GFR (African American) 135.2; Est GFR (Non-African American) 116.6; Magnesium 1.9 mg/dl (1.8-2.4); Phosphorus 1.7 mg/dl (2.5-4.9)
[2020-09-18] MEDS ORDERED: POTASSIUM CHLORIDE CRTAB 20 MEQ TABCR PO STA (07:44)
[2020-09-18] MEDS ORDERED: POTASSIUM PHOS 3 MMOL/1 ML INFUSION IV STA (07:46)
[2020-09-18] MEDS ORDERED: POTASSIUM PHOSPHATE 15 MMOL in SODIUM CHLORIDE 0.9% 250 ML IV ONE (08:15)
[2020-09-18] MEDS: predniSONE 5 MG TAB PO SCH (08:52)
[2020-09-18] MEDS: METOPROLOL TARTRATE 25 MG TAB PO SCH (08:52)
[2020-09-18] MEDS: PANTOprazole 40 MG TAB PO SCH (08:53)
[2020-09-18] MEDS: amLODIPine BESYLATE 5 MG TAB PO SCH (08:53)
[2020-09-18] MEDS: ASPIRIN 81 MG ECTAB PO SCH (08:53)
[2020-09-18] MEDS: ATORVASTATIN 40 MG TAB PO SCH (08:54)
[2020-09-18] MEDS: PSYLLIUM 58.6% POWDER PACKET PO SCH (08:54)
[2020-09-18] MEDS: POTASSIUM CHLORIDE / WTR 10 MEQ/100 ML PLCT IV SCH ×4 (08:58→12:31)
[2020-09-18] MEDS: FUROSEMIDE 40 MG in SYRINGE 0 ML IV SCH ×2 (09:00→20:07)
[2020-09-18] MEDS: DOCUSATE SODIUM 100 MG CAP PO SCH (09:00)
[2020-09-18] MEDS: XTANDI: ORDER AWAITING ACTION SCH ×3 (09:43→23:22)
--- NOTE | 2020-09-18 14:10 | Hospitalist Progress Note ---
Date of Service September 18, 2020 Assessment & Plan (1) Bilateral lower extremity edema: Patient once again returned with significant lower extremity edema causing ambulatory dysfunction. During his last admission he had compressive lymphadenopathy ruled out with CT abdomen pelvis with IV contrast. Echocardiogram (09-03-20) showed preserved systolic function. No significant proteinuria is noted on urinalysis although nutritionally he has low albumin which could contribute to third space fluid. At that time, normal TSH. Patient will be diuresed with Lasix augmented with copious amounts of potassium magnesium Patient states he lives with friends he is unclear whether he was taking any diuretic or not. 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 No significant bony pending at this time. Follows with oncology neurology. Is on Lupron injections and previously was on Xtandi and Xgeva. He is on daily prednisone therapy at 5 and we will check random and an a.m. cortisol continue his Xgeva while in the hospital (5) Urinary retention: Patient has a chronic indwelling Loredo catheter (6) Dyslipidemia: Continues on atorvastatin (7) Hypertension: Continues on metoprolol for secondary risk reduction with aspirin and statin as mentioned (8) Depression with anxiety: reMains on paroxetine (9) DVT prophylaxis: Lovenox for DVT prevention Admission and Anticipated Discharge Date Admission Date: September 16, 2020 Subjective Patient states swelling is much better than on arrival Denies sob, cough No chest pain No nausea or vomiting Tolerating diet No constipation or diarrhea Ambulating with PT Review of Systems Constitutional: no fever, no chills, no fatigue, no weakness, no anorexia, no weight loss and no weight gain Ear, Nose, Mouth, Throat: no nasal congestion, no sore throat and no dysphagia Respiratory: no cough and no dyspnea Cardiovascular: no chest pain, no dyspnea on exertion, no orthopnea and no palpitations Gastrointestinal: no abdominal pain, no nausea, no vomiting, no hematemesis, no dysphagia, no constipation, no diarrhea/loose stools, no blood in stools and no melena Genitourinary: no dysuria and no hematuria Musculoskeletal: no back pain, no joint pain, no myalgia and no muscle weakness Integumentary: no rash, no lesions, no skin ulcer, no erythema, no dry skin and no pruritus Neurologic: no falls, no localized weakness, no generalized weakness, no numbness, no paresthesia, no tremor(s) and no headache(s) Psychiatric: no depression, no suicidal ideation, no homicidal ideation and no anxiety Endocrine: no cold intolerance and no heat intolerance Hematologic / Lymphatic: no easy bleeding and no easy bruising Physical Exam Constitutional: well developed and well nourished; no acute distress Eyes: PERRL, conjunctivae normal, anicteric sclerae (exotropia left eye) ENMT: Mouth: oral mucous membranes not dry Respiratory: normal respiratory effort; no respiratory distress and no labored breathing Auscultation: lungs clear to auscultation bilaterally; no crackles, no rales, no rhonchi and no wheezes Cardiovascular: Rate/Rhythm: regular rate and regular rhythm Heart Sounds: no murmur and no cardiac rub Vessels: normal peripheral pulses and radial pulses present; no JVD Extremities: + edema (trace bilateral LE edema) Gastrointestinal (Abdomen): Inspection/Auscultation: abdomen normal to inspection and normal bowel sounds; abdomen not distended Percussion/Palpation: abdomen soft; abdomen nontender, no guarding, abdomen not rigid and no hepatosplenomegaly Musculoskeletal: Head/Neck/Chest: normocephalic and head atraumatic Spine: no cervical spinal tenderness, no cervical muscular tenderness, no thoracic spinal tenderness and no lumbar spinal tenderness Skin: no rashes, warm and dry Neurologic: CN's II-XI intact bilaterally and moves all extremities Motor/Sensory: no tremor and no sensory deficit Psychiatric: Orientation: alert, oriented to person, oriented to place and oriented to time Apperance: appropriately groomed; not disheveled Affect: euthymic affect; no anxious affect and no tearful affect Results & Data Results & Data ([facility]) Vital Signs (Past 12 Hours) Vital Signs Temp Pulse Pulse Resp BP Pulse Ox 09/18/20 11:44 36.8 C 69 18 132/79 94 09/18/20 08:00 37.2 C 61 18 135/64 93 09/18/20 07:06 92 H 09/18/20 03:01 36.7 C 79 17 129/70 93 PG Care Time/CCT Total # of Minutes Spent Total Time Spent with Patient: Total time spent is greater than 50% in coordination of care (as documented) at patient's floor/unit and/or counseling patient: Coding Level of Care Code 73890 Subseq Hosp Care Lvl 2 Diagnoses Bilateral lower extremity edema R60.0 Acute hypokalemia E87.6 Hypophosphatemia E83.39 Prostate cancer C61 Urinary retention R33.9 Dyslipidemia E78.5 Hypertension I10 Depression with anxiety F41.8 DVT prophylaxis Z29.9
[2020-09-18] MEDS: PARoxetine HCL 20 MG TAB PO SCH (20:08)
[2020-09-18] MEDS: ENOXAPARIN INJ 40 MG/0.4 ML SYR SQ SCH (20:08)
[2020-09-19 06:05] LABS: Hematocrit (blood only) 39.2 % (42-52); Hemoglobin 13.6 g/dL (14.0-18.0); Mean Corpuscular Hgb Conc 34.7 g/dL (32-36); Mean Corpuscular Volume 86.3 fL (80-100); Mean Platelet Volume 9.1 fL (7.4-10.4); Platelet Count 217 K/uL (130-400); RDW Coefficient of Variation 12.8 % (11.5-14.5); RDW Standard Deviation 40.7 fL (36.4-46.3); Red Blood Count 4.54 M/uL (4.7-6.1); White Blood Count 8.11 K/uL (4.8-10.8)
[2020-09-19 06:46] LABS: BUN Creatinine Ratio 22.5 (10-20); Calcium 7.2 mg/dl (8.5-10.1); Creatinine Clr Calc Pharmacy 152.7 ml/min; Est GFR (African American) 133.7; Est GFR (Non-African American) 115.4; Magnesium 1.9 mg/dl (1.8-2.4); Phosphorus 1.7 mg/dl (2.5-4.9); Potassium 2.1 mmol/L (3.5-5.1)
[2020-09-19] MEDS ORDERED: POTASSIUM PHOS 3 MMOL/1 ML INFUSION IV STA ×3 (06:49→15:37)
[2020-09-19] MEDS ORDERED: POTASSIUM CHLORIDE 20 MEQ/15 ML UDC PO STA (06:49)
[2020-09-19] MEDS: ATORVASTATIN 40 MG TAB PO SCH (07:37)
[2020-09-19] MEDS: PANTOprazole 40 MG TAB PO SCH (07:37)
[2020-09-19] MEDS: predniSONE 5 MG TAB PO SCH (07:37)
[2020-09-19] MEDS: amLODIPine BESYLATE 5 MG TAB PO SCH (07:38)
[2020-09-19] MEDS: ASPIRIN 81 MG ECTAB PO SCH (07:38)
[2020-09-19] MEDS: METOPROLOL TARTRATE 25 MG TAB PO SCH (07:39)
[2020-09-19] MEDS: PSYLLIUM 58.6% POWDER PACKET PO SCH (07:40)
[2020-09-19] MEDS ORDERED: POTASSIUM PHOSPHATE 24 MMOL in SODIUM CHLORIDE 0.9% 500 ML IV ONE ×2 (07:45→15:45)
[2020-09-19] MEDS ORDERED: POTASSIUM CHLORIDE CRTAB 20 MEQ TABCR PO ONE (07:45)
[2020-09-19] MEDS: XTANDI: ORDER AWAITING ACTION SCH (07:47)
[2020-09-19] MEDS: POTASSIUM PHOSPHATE 24 MMOL in SODIUM CHLORIDE 0.9% 500 ML IV ONE ×2 (07:47→07:57)
[2020-09-19] MEDS: DOCUSATE SODIUM 100 MG CAP PO SCH (07:48)
[2020-09-19] MEDS: FUROSEMIDE 40 MG in SYRINGE 0 ML IV SCH (07:57)
[2020-09-19] MEDS ORDERED: Nursing to Pharmacy Communication SCH (08:45)
[2020-09-19] MEDS ORDERED: ENZALUTAMIDE 40 MG PO SCH (12:00)
[2020-09-19] MEDS: ENZALUTAMIDE 40 MG PO SCH (13:00)
[2020-09-19 13:42] LABS: Calcium 7.1 mg/dl (8.5-10.1); Creatinine Clr Calc Pharmacy 120.9 ml/min; Est GFR (African American) 121.5; Est GFR (Non-African American) 104.8; Potassium 2.6 mmol/L (3.5-5.1)
--- NOTE | 2020-09-19 15:40 | Hospitalist Progress Note ---
Date of Service September 19, 2020 Assessment & Plan (1) Acute hypokalemia: 3-24 repeat potassium 2.9 giving an additional 40meq repeat BMP in am 09-18 K 2.0, giving 40meq PO, 40meq IV and an additional 15mmol kphos repeat bmp at 4pm 09-19 K 2.1 this am, gave kCl 40meq PO, K phos 24mmol repeat K 2.6 scheduled KCl 20meq bid lasix 20 PO daily (instead of IV) giving additional 24mmol kphos (2) Hypophosphatemia: replacing phos 15mmol repeat test in am 09-19 gave k phos 24mmol repeat phos 1.9 giving an additional 24mmol k phos (3) Bilateral lower extremity edema: Patient once again returned with significant lower extremity edema causing ambulatory dysfunction. During his last admission he had compressive lymphadenopathy ruled out with CT abdomen pelvis with IV contrast. Echocardiogram (09-03-20) showed preserved systolic function. No significant proteinuria is noted on urinalysis although nutritionally he has low albumin which could contribute to third space fluid. At that time, normal TSH. Patient will be diuresed with Lasix augmented with copious amounts of potassium magnesium Patient states he lives with friends he is unclear whether he was taking any diuretic or not. 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 No significant bony pending at this time. Follows with oncology neurology. Is on Lupron injections and previously was on Xtandi and Xgeva. He is on daily prednisone therapy at 5 and we will check random and an a.m. cortisol continue his Xgeva while in the hospital (5) Urinary retention: Patient has a chronic indwelling Loredo catheter (6) Dyslipidemia: Continues on atorvastatin (7) Hypertension: Continues on metoprolol for secondary risk reduction with aspirin and statin as mentioned (8) Depression with anxiety: reMains on paroxetine (9) DVT prophylaxis: Lovenox for DVT prevention Admission and Anticipated Discharge Date Admission Date: September 16, 2020 Subjective Patient states swelling has resolved Denies sob, cough No nausea or vomiting Tolerating diet No constipation or diarrhea Ambulating with PT Patient understands potassium and phos still remains low Review of Systems Constitutional: no fever, no chills, no fatigue, no weakness, no anorexia, no weight loss and no weight gain Ear, Nose, Mouth, Throat: no nasal congestion, no sore throat and no dysphagia Respiratory: no cough and no dyspnea Cardiovascular: no chest pain, no dyspnea on exertion, no orthopnea and no palpitations Gastrointestinal: no abdominal pain, no nausea, no vomiting, no hematemesis, no dysphagia, no constipation, no diarrhea/loose stools, no blood in stools and no melena Genitourinary: no dysuria and no hematuria Musculoskeletal: no back pain, no joint pain, no myalgia and no muscle weakness Integumentary: no rash, no lesions, no skin ulcer, no erythema, no dry skin and no pruritus Neurologic: no falls, no localized weakness, no generalized weakness, no numbness, no paresthesia, no tremor(s) and no headache(s) Psychiatric: no depression, no suicidal ideation, no homicidal ideation and no anxiety Endocrine: no cold intolerance and no heat intolerance Hematologic / Lymphatic: no easy bleeding and no easy bruising Physical Exam Constitutional: well developed and well nourished; no acute distress Eyes: PERRL, conjunctivae normal, anicteric sclerae (exotropia left eye) ENMT: Mouth: oral mucous membranes not dry Respiratory: normal respiratory effort; no respiratory distress and no labored breathing Auscultation: lungs clear to auscultation bilaterally; no crackles, no rales, no rhonchi and no wheezes Cardiovascular: Rate/Rhythm: regular rate and regular rhythm Heart Sounds: no murmur and no cardiac rub Vessels: normal peripheral pulses and radial pulses present; no JVD Extremities: no edema Gastrointestinal (Abdomen): Inspection/Auscultation: abdomen normal to inspection and normal bowel sounds; abdomen not distended Percussion/Pa lpation: abdomen soft; abdomen nontender, no guarding, abdomen not rigid and no hepatosplenomegaly Musculoskeletal: Head/Neck/Chest: normocephalic and head atraumatic Spine: no cervical spinal tenderness, no cervical muscular tenderness, no thoracic spinal tenderness and no lumbar spinal tenderness Skin: no rashes, warm and dry Neurologic: CN's II-XI intact bilaterally and moves all extremities Motor/Sensory: no tremor and no sensory deficit Psychiatric: Orientation: alert, oriented to person, oriented to place and oriented to time Apperance: appropriately groomed; not disheveled Affect: euthymic affect; no anxious affect and no tearful affect Results & Data Results & [facility] ([facility]) Vital Signs (Past 12 Hours) Vital Signs Temp Pulse Pulse Resp BP Pulse Ox 09/19/20 15:29 36.6 C 84 18 132/76 98 09/19/20 11:46 37.0 C 62 18 132/79 92 09/19/20 07:59 36.6 C 73 18 135/75 92 09/19/20 07:30 81 PG Care Time/CCT Total # of Minutes Spent Total Time Spent with Patient: Total time spent is greater than 50% in coordinat ion of care (as documented) at patient's floor/unit and/or counseling patient: Coding Level of Care Code 54259 Subseq Hosp Care Lvl 2 Diagnoses Acute hypokalemia E87.6 Hypophosphatemia E83.39 Bilateral lower extremity edema R60.0 Prostate cancer C61 Urinary retention R33.9 Dyslipidemia E78.5 Hypertension I10 Depression with anxiety F41.8 DVT prophylaxis Z29.9
[2020-09-19] MEDS: POTASSIUM CHLORIDE CRTAB 20 MEQ TABCR PO SCH (22:07)
[2020-09-19] MEDS: PARoxetine HCL 20 MG TAB PO SCH (22:07)
[2020-09-19] MEDS: ENOXAPARIN INJ 40 MG/0.4 ML SYR SQ SCH (22:07)
[2020-09-20] MEDS: amLODIPine BESYLATE 5 MG TAB PO SCH (07:48)
[2020-09-20] MEDS: ATORVASTATIN 40 MG TAB PO SCH (07:48)
[2020-09-20] MEDS: ASPIRIN 81 MG ECTAB PO SCH (07:48)
[2020-09-20] MEDS: PANTOprazole 40 MG TAB PO SCH (07:48)
[2020-09-20] MEDS: PSYLLIUM 58.6% POWDER PACKET PO SCH (07:49)
[2020-09-20] MEDS: FUROSEMIDE 20 MG TAB PO SCH ×2 (07:49→08:40)
[2020-09-20] MEDS: METOPROLOL TARTRATE 25 MG TAB PO SCH (07:49)
[2020-09-20] MEDS: predniSONE 5 MG TAB PO SCH (07:49)
[2020-09-20] MEDS: POTASSIUM CHLORIDE CRTAB 20 MEQ TABCR PO SCH ×2 (07:50→22:00)
[2020-09-20] MEDS: DOCUSATE SODIUM 100 MG CAP PO SCH (07:55)
[2020-09-20 08:11] LABS: Hematocrit (blood only) 41.9 % (42-52); Hemoglobin 14.6 g/dL (14.0-18.0); Mean Corpuscular Hemoglobin 30.1 pg (25-34); Mean Corpuscular Hgb Conc 34.8 g/dL (32-36); Mean Corpuscular Volume 86.4 fL (80-100); Mean Platelet Volume 9.3 fL (7.4-10.4); Platelet Count 226 K/uL (130-400); RDW Coefficient of Variation 12.8 % (11.5-14.5); RDW Standard Deviation 40.7 fL (36.4-46.3); Red Blood Count 4.85 M/uL (4.7-6.1); White Blood Count 9.99 K/uL (4.8-10.8)
[2020-09-20 09:01] LABS: BUN Creatinine Ratio 24.8 (10-20); Calcium 7.6 mg/dl (8.5-10.1); Creatinine Clr Calc Pharmacy 140.7 ml/min; Est GFR (African American) 129.6; Est GFR (Non-African American) 111.8; Magnesium 1.9 mg/dl (1.8-2.4); Potassium 2.3 mmol/L (3.5-5.1)
[2020-09-20] MEDS ORDERED: POTASSIUM PHOS 3 MMOL/1 ML INFUSION IV STA (11:24)
[2020-09-20] MEDS ORDERED: POTASSIUM PHOSPHATE 24 MMOL in SODIUM CHLORIDE 0.9% 500 ML IV ONE (11:45)
[2020-09-20] MEDS: ENZALUTAMIDE 40 MG PO SCH (12:30)
--- NOTE | 2020-09-20 15:40 | Hospitalist Progress Note ---
Date of Service September 20, 2020 Assessment & Plan (1) Acute hypokalemia: 09-17 repeat potassium 2.9 giving an additional 40meq repeat BMP in am 09-18 K 2.0, giving 40meq PO, 40meq IV and an additional 15mmol kphos repeat bmp at 4pm 09-19 K 2.1 this am, gave kCl 40meq PO, K phos 24mmol repeat K 2.6 scheduled KCl 20meq bid lasix 20 PO daily (instead of IV) giving additional 24mmol kphos 09-20 K2.3, Continue potassium po supplementation added 24 mmol Kphos repeat BMP this afternoon (2) Hypophosphatemia: replacing phos 15mmol repeat test in am 09-19 gave k phos 24mmol repeat phos 1.9 giving an additional 24mmol k phos 09-20 stable, recheck in am (3) Bilateral lower extremity edema: Patient once again returned with significant lower extremity edema causing ambulatory dysfunction. During his last admission he had compressive lymphadenopathy ruled out with CT abdomen pelvis with IV contrast. Echocardiogram (09-03-20) showed preserved systolic function. No significant proteinuria is noted on urinalysis although nutritionally he has low albumin which could contribute to third space fluid. At that time, normal TSH. Patient will be diuresed with Lasix augmented with copious amounts of potassium magnesium Patient states he lives with friends he is unclear whether he was taking any diuretic or not. 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 No significant bony pending at this time. Follows with oncology neurology. Is on Lupron injections and previously was on Xtandi and Xgeva. He is on daily prednisone therapy at 5 and we will check random and an a.m. cortisol continue his Xgeva while in the hospital (5) Urinary retention: Patient has a chronic indwelling Loredo catheter (6) Dyslipidemia: Continues on atorvastatin (7) Hypertension: Continues on metoprolol for secondary risk reduction with aspirin and statin as mentioned (8) Depression with anxiety: reMains on paroxetine (9) DVT prophylaxis: Lovenox for DVT prevention Admission and Anticipated Discharge Date Admission Date: September 16, 2020 Patient previously staying with his sister, describes homeless this in the past. Case management aware waiting on placement. Subjective No new complaints. Denies any symptoms of chest pain dyspnea or palpitations Able to tolerate his meal Bowel movement in the last 24 hour No weakness or numbness Review of Systems Review of Systems: All systems reviewed & are unremarkable except as noted in Subjective Physical Exam Physical Exam: Constitutional: WD/WN, vitals as above Respiratory: Effort normal, CTA B/L CV: RRR, no murmur, mild edema Abdomen: normal bowel sounds, soft, nontender, no hepatosplenomegaly Urology catheter in place Results & Data Results & Data ([facility]) Vital Signs (Past 12 Hours) Vital Signs Temp Pulse Pulse Resp BP Pulse Ox 09/20/20 14:31 36.9 C 71 18 132/73 92 09/20/20 11:15 36.7 C 73 18 108/71 96 09/20/20 08:00 73 09/20/20 07:35 36.9 C 71 18 137/78 93 09/20/20 03:46 36.8 C 84 18 135/79 95 Laboratory Results Laboratory Results - last 24 hr 09/20/20 09/20/20 07:51 07:51 WBC 9.99 RBC 4.85 Hgb 14.6 Hct 41.9 L MCV 86.4 MCH 30.1 MCHC 34.8 RDW Std Deviation 40.7 RDW Coeff of Pardeep 12.8 Plt Count 226 MPV 9.3 Sodium 134 L Potassium 2.3 L* Chloride 92 L Carbon Dioxide 37 H Anion Gap 5.0 BUN 10 Creatinine 0.41 L Est Cr Clr Drug Dosing 140.7 Est GFR ( Amer) 129.6 Est GFR (Non-Af Amer) 111.8 BUN/Creatinine Ratio 24.8 H Glucose 123 H Calcium 7.6 L Phosphorus 2.0 L Magnesium 1.9 PG Care Time/CCT Total # of Minutes Spent Total Time Spent with Patient: Total time spent is greater than 50% in coordination of care (as documented) at patient's floor/unit and/or counseling patient: Coding Level of Care Code 07060 Subseq Hosp Care Lvl 3 Diagnoses Acute hypokalemia E87.6 Hypophosphatemia E83.39 Bilateral lower extremity edema R60.0 Prostate cancer C61 Urinary retention R33.9 Dyslipidemia E78.5 Hypertension I10 Depression with anxiety F41.8 DVT prophylaxis Z29.9
[2020-09-20 16:37] LABS: BUN Creatinine Ratio 29.5 (10-20); Calcium 7.1 mg/dl (8.5-10.1); Creatinine Clr Calc Pharmacy 120.2 ml/min; Est GFR (African American) 121.5; Est GFR (Non-African American) 104.8; Potassium 2.7 mmol/L (3.5-5.1)
[2020-09-20] MEDS: PARoxetine HCL 20 MG TAB PO SCH (22:00)
[2020-09-20] MEDS: ENOXAPARIN INJ 40 MG/0.4 ML SYR SQ SCH (22:00)
[2020-09-21 07:39] LABS: BUN Creatinine Ratio 27.3 (10-20); Calcium 7.3 mg/dl (8.5-10.1); Creatinine Clr Calc Pharmacy 157.6 ml/min; Est GFR (African American) 133.7; Est GFR (Non-African American) 115.4; Potassium 2.4 mmol/L (3.5-5.1)
[2020-09-21 07:58] LABS: Phosphorus 1.5 mg/dl (2.5-4.9)
[2020-09-21] MEDS: METOPROLOL TARTRATE 25 MG TAB PO SCH (08:08)
[2020-09-21] MEDS: amLODIPine BESYLATE 5 MG TAB PO SCH (08:08)
[2020-09-21] MEDS: ASPIRIN 81 MG ECTAB PO SCH (08:09)
[2020-09-21] MEDS: ATORVASTATIN 40 MG TAB PO SCH (08:09)
[2020-09-21] MEDS: predniSONE 5 MG TAB PO SCH (08:09)
[2020-09-21] MEDS: PANTOprazole 40 MG TAB PO SCH (08:09)
[2020-09-21] MEDS: PSYLLIUM 58.6% POWDER PACKET PO SCH (08:09)
[2020-09-21] MEDS: DOCUSATE SODIUM 100 MG CAP PO SCH (08:14)
[2020-09-21] MEDS: FUROSEMIDE 20 MG TAB PO SCH (08:39)
[2020-09-21] MEDS: POT PHOSPHATE MONOBASIC W/ SOD TAB PO SCH ×4 (09:43→20:12)
[2020-09-21] MEDS: POTASSIUM CHLORIDE CRTAB 20 MEQ TABCR PO SCH ×3 (09:43→20:11)
[2020-09-21] MEDS: MAGNESIUM OXIDE 400 MG TAB PO SCH (09:43)
[2020-09-21] MEDS: ENZALUTAMIDE 40 MG PO SCH (13:02)
--- NOTE | 2020-09-21 17:34 | Hospitalist Progress Note ---
Date of Service September 21, 2020 Assessment & Plan (1) Acute hypokalemia: Severe and recurrent/persistent, along with hypophosphatemia. Lasix could be part of the culprit, and looking at his med list as far as possible side effects, Xgeva could easily be implicated as well. -No acute need for LasixDC this. -We will have oncology give thoughts at next follow-up on continuing Xgeva versus the possibility of changing to a different agent -Either way, appears he will need ongoing aggressive potassium and phosphorus supplementation, as well as frequent following of labs (2) Hypophosphatemia: r replace, follow, as above (3) Bilateral lower extremity edema: Does not appear to have any type of CHF, this is likely venous stasis and third spacing of fluids. Today he has no edema. Obviously, loop diuretics are of questionable balance on risk versus benefit whenever it relates to non-CHF related swellinggiven that people can often become intra-arterially volume depleted while still fluid overloaded. Should the swelling come back, I would recommend first trying compression, elevation, ambulation prior to reinstituting a diuretic. 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 Pain seems to be okay. As above as it relates to his Xgeva (5) Urinary retention: Patient has a chronic indwelling Loredo catheter (6) Dyslipidemia: Continues on atorvastatin (7) Hypertension: Continues on metoprolol for secondary risk reduction with aspirin and statin as mentioned (8) Depression with anxiety: Continue home meds (9) DVT prophylaxis: Lovenox for DVT prevention (10) Discharge planning issues: PT/OT eval and treat, at this time he is appearing most likely to need some type of acute or subacute rehab after discharge. Admission and Anticipated Discharge Date Admission Date: September 16, 2020 Subjective Feeling reasonably well. Eating well. Notes that overall he is eating reasonably well at home. Family takes him to the grocery store about once a week he does not lack for food. Notes no significant leg swelling. Review of Systems Review of Systems: All systems reviewed & are unremarkable except as noted in HPI & below Physical Exam Physical Exam: In general he is awake and alert pleasant no distress. HEENT normocephalic atraumatic mucous membranes moist. Breathing unlabored no accessory muscle use good effort. Skin shows no rashes no pallor or icterus. Extremities show no cyanosis clubbing or edema. Results & Data Results & Data ([facility]) Vital Signs (Past 12 Hours) Vital Signs Temp Pulse Pulse Resp BP BP Pulse Ox 09/21/20 16:00 74 09/21/20 15:00 98.8 F 73 18 146/81 H 92 09/21/20 11:00 97.5 F L 70 20 122/79 92 09/21/20 08:47 88 09/21/20 08:19 98.1 F 77 20 129/88 94 PG Care Time/CCT Total # of Minutes Spent Total Time Spent with Patient: Total time spent is greater than 50% in coordination of care (as documented) at patient's floor/unit and/or counseling patient: Coding Level of Care Code 82703 Subseq Hosp Care Lvl 3 Diagnoses Acute hypokalemia E87.6 Hypophosphatemia E83.39 Bilateral lower extremity edema R60.0 Prostate cancer C61 Urinary retention R33.9 Dyslipidemia E78.5 Hypertension I10 Depression with anxiety F41.8 DVT prophylaxis Z29.9 Discharge planning issues Z02.9
[2020-09-21] MEDS: ENOXAPARIN INJ 40 MG/0.4 ML SYR SQ SCH (20:12)
[2020-09-21] MEDS: PARoxetine HCL 20 MG TAB PO SCH (20:12)
[2020-09-22] MEDS: ATORVASTATIN 40 MG TAB PO SCH (07:45)
[2020-09-22] MEDS: MAGNESIUM OXIDE 400 MG TAB PO SCH (07:45)
[2020-09-22] MEDS: amLODIPine BESYLATE 5 MG TAB PO SCH (07:45)
[2020-09-22] MEDS: POT PHOSPHATE MONOBASIC W/ SOD TAB PO SCH ×4 (07:45→19:36)
[2020-09-22] MEDS: PANTOprazole 40 MG TAB PO SCH (07:45)
[2020-09-22] MEDS: predniSONE 5 MG TAB PO SCH (07:45)
[2020-09-22] MEDS: METOPROLOL TARTRATE 25 MG TAB PO SCH (07:45)
[2020-09-22] MEDS: ASPIRIN 81 MG ECTAB PO SCH (07:45)
[2020-09-22] MEDS: PSYLLIUM 58.6% POWDER PACKET PO SCH (07:46)
[2020-09-22] MEDS: POTASSIUM CHLORIDE CRTAB 20 MEQ TABCR PO SCH ×3 (07:46→19:36)
[2020-09-22] MEDS: DOCUSATE SODIUM 100 MG CAP PO SCH (07:55)
[2020-09-22 09:02] LABS: BUN Creatinine Ratio 22.9 (10-20); Creatinine Clr Calc Pharmacy 180.5 ml/min; Est GFR (African American) 141.7; Est GFR (Non-African American) 122.3; Magnesium 1.9 mg/dl (1.8-2.4); Phosphorus 1.6 mg/dl (2.5-4.9); Potassium 2.2 mmol/L (3.5-5.1)
[2020-09-22] MEDS ORDERED: POTASSIUM PHOS 3 MMOL/1 ML INFUSION IV STA (09:56)
[2020-09-22] MEDS ORDERED: POTASSIUM PHOSPHATE 24 MMOL in SODIUM CHLORIDE 0.9% 500 ML IV ONE (10:30)
--- NOTE | 2020-09-22 10:54 | Hospitalist Progress Note ---
Date of Service September 22, 2020 Assessment & Plan (1) Acute hypokalemia: Jose Daniel France is a 80y/o M with PMH significant for HTN, dyslipidemia, prostate cancer, and depression. 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 As above as it relates to his Xgeva Dyslipidemia: -Continues on atorvastatin Hypertension: -Continues on metoprolol for secondary risk reduction with aspirin and statin as mentioned (2) Hypophosphatemia: (3) Bilateral lower extremity edema: (4) Prostate cancer: (5) Urinary retention: (6) Dyslipidemia: (7) Hypertension: (8) Depression with anxiety: (9) DVT prophylaxis: (10) Discharge planning issues: Admission and Anticipated Discharge Date Admission Date: September 16, 2020 Supervising Physician Co-Signing Physician Notes I personally examined the patient and verified all townsend points of history and exam, discussed case, and agree with decision making with Dr Duarte feeling ok just tired vitals noted nad heent nc at mmm breathing unlabored no accessory muscles good effort skin no rashes no pallor or icterus persistent/refractory hypokalemia/hypophosphatemia - ?malnutrition and depletion from lasix vs from Xgeva -replace aggressively through today, but if still low tomorrow, it would seem less likely that simply depletion would be the culprit, given that he is eating fairly well here, has been aggressively supplemented, and has now been off the Lasix for several days. Therefore if his levels have not come up significantly by tomorrow, we will ask hematology for an opinion on if the Xgeva could be a culprit/what else we could maybe substitute for the Xgeva, as well as likely get an opinion from nephrology on evaluation for any type of renal wasting syndr omes. Otherwise as above Subjective Overall feeling well this morning, continuing to tolerate food and drink without complication. Discussion with nursing staff early in day indicates that while patient does take in and endorse some appetite, he is not eating nearly the full amount of his plate and this seems to be decreasing. Review of Systems Review of Systems: All systems reviewed & are unremarkable except as noted in Subjective Physical Exam Constitutional: WD/WN, vitals as above Eyes: PERRL, conjunctivae normal, anicteric sclerae Respiratory: normal respiratory effort; no respiratory distress and no labored breathing Cardiovascular: Vessels: normal peripheral pulses; no JVD Gastrointestinal (Abdomen): normal bowel sounds, soft, nontender, no hepatosplenomegaly Skin: no rashes, warm and dry Psychiatric: Orientation: alert and oriented x 3 Results & Data Results & Data ([facility]) Vital Signs (Past 12 Hours) Vital Signs Temp Pulse Pulse Resp BP BP Pulse Ox 09/22/20 08:00 78 09/22/20 07:14 36.9 C 65 16 132/71 93 09/22/20 05:01 72 09/22/20 04:00 36.6 C 65 18 163/58 H 92 09/21/20 23:00 36.7 C 71 18 153/79 H 93 Laboratory Results 09/22/20 Range/Units 06:53 Sodium 132 L (136-145) mmol/L Potassium 2.2 L* (3.5-5.1) mmol/L Chloride 92 L (98-107) mmol/L Carbon Dioxide 34 H (21-32) mmol/L Anion Gap 5.0 (3-11) BUN 8 (7-18) mg/dl Creatinine 0.33 L (0.6-1.4) mg/dl Est Cr Clr Drug Dosing 180.5 ml/min Est GFR ( Amer) 141.7 Est GFR (Non-Af Amer) 122.3 BUN/Creatinine Ratio 22.9 H (10-20) Glucose 106 H (70-99) mg/dl Calcium 7.0 L (8.5-10.1) mg/dl Phosphorus 1.6 L (2.5-4.9) mg/dl Magnesium 1.9 (1.8-2.4) mg/dl Resident Activity Tracking Resident Involvement: Resident Care Provided Care Provided: [facility]
[2020-09-22] MEDS: ENZALUTAMIDE 40 MG PO SCH (12:06)
[2020-09-22] MEDS: ENOXAPARIN INJ 40 MG/0.4 ML SYR SQ SCH (19:37)
[2020-09-22] MEDS: PARoxetine HCL 20 MG TAB PO SCH (19:37)
--- NOTE | 2020-09-22 19:38 | Billing Data ---
Date of Service September 22, 2020 Coding Level of Care Code 66638 Subseq Hosp Care Lvl 3
[2020-09-23 07:21] LABS: Hematocrit (blood only) 39.8 % (42-52); Hemoglobin 14.3 g/dL (14.0-18.0); Mean Corpuscular Hemoglobin 30.5 pg (25-34); Mean Corpuscular Hgb Conc 35.9 g/dL (32-36); Mean Corpuscular Volume 84.9 fL (80-100); Mean Platelet Volume 9.5 fL (7.4-10.4); Platelet Count 188 K/uL (130-400); RDW Coefficient of Variation 13.1 % (11.5-14.5); RDW Standard Deviation 40.5 fL (36.4-46.3); Red Blood Count 4.69 M/uL (4.7-6.1); White Blood Count 11.33 K/uL (4.8-10.8)
[2020-09-23 07:58] LABS: Calcium 6.8 mg/dl (8.5-10.1); Creatinine Clr Calc Pharmacy 185.1 ml/min; Est GFR (African American) 143.5; Est GFR (Non-African American) 123.8; Potassium 2.6 mmol/L (3.5-5.1)
[2020-09-23] MEDS: POTASSIUM CHLORIDE CRTAB 20 MEQ TABCR PO SCH ×3 (07:58→20:09)
[2020-09-23] MEDS: MAGNESIUM OXIDE 400 MG TAB PO SCH (07:58)
[2020-09-23 07:59] LABS: Phosphorus 1.7 mg/dl (2.5-4.9)
[2020-09-23] MEDS: amLODIPine BESYLATE 5 MG TAB PO SCH (07:59)
[2020-09-23] MEDS: METOPROLOL TARTRATE 25 MG TAB PO SCH (07:59)
[2020-09-23] MEDS: ASPIRIN 81 MG ECTAB PO SCH (07:59)
[2020-09-23] MEDS: POT PHOSPHATE MONOBASIC W/ SOD TAB PO SCH ×4 (07:59→20:10)
[2020-09-23] MEDS: predniSONE 5 MG TAB PO SCH (07:59)
[2020-09-23] MEDS: ATORVASTATIN 40 MG TAB PO SCH (07:59)
[2020-09-23] MEDS: PSYLLIUM 58.6% POWDER PACKET PO SCH (08:00)
[2020-09-23] MEDS: PANTOprazole 40 MG TAB PO SCH (08:01)
[2020-09-23] MEDS: DOCUSATE SODIUM 100 MG CAP PO SCH (08:07)
[2020-09-23 09:26] LABS: Immature Granulocytes # (auto) 0.09 K/uL (0.00-0.02); Immature Granulocytes % (auto) 0.8 %; Lymphocytes # (auto) 0.99 K/uL (1.2-3.4); Lymphocytes % (auto) 8.7 %; Monocytes # (auto) 0.55 K/uL (0.11-0.59); Monocytes % (auto) 4.9 %; Neutrophils % (auto) 85.6 %
--- NOTE | 2020-09-23 10:11 | Hospitalist Progress Note ---
Date of Service September 23, 2020 Assessment & Plan (1) Acute hypokalemia: Jose Daniel France is a 80y/o M with PMH significant for HTN, dyslipidemia, prostate cancer, and depression. Acute Hypokalemia/hypophosphatemia: -Severe and recurrent/persistent, along with hypophosphatemia -consideration of potential complication of Lasis/Xygeva for persistance -We will have oncology give thoughts at next follow-up on continuing Xgeva versus the possibility of changing to a different agent -Either way, appears he will need ongoing aggressive potassium and phosphorus supplementation, as well as frequent following of labs -continue to monitor -Nephrology/oncology consults given this persistent depletion despite attempted replacement in the setting of Xygeva Prostate cancer: -Patient 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 As above as it relates to his Xgeva Dyslipidemia: -Continues on atorvastatin Hypertension: -Continues on metoprolol for secondary risk reduction with aspirin and statin as mentioned Diet: Low sodium diet CODE STATUS: Full Code DVT PPx: Lovenox SQ (2) Hypophosphatemia: (3) Bilateral lower extremity edema: (4) Prostate cancer: (5) Urinary retention: (6) Dyslipidemia: (7) Hypertension: (8) Depression with anxiety: (9) DVT prophylaxis: (10) Discharge planning issues: Admission and Anticipated Discharge Date Admission Date: September 16, 2020 Supervising Physician Co-Signing Physician Notes I personally examined the patient and verified all townsend points of history and exam, discussed case, and agree with decision making with Dr Duarte working w therapy vitals noted nad heent nc at mmm breathing unlabored no accessory muscles good effort skin no rashes no pallor or icterus persistent/refractory hypokalemia/hypophosphatemia - ?malnutrition and depletion from lasix vs from Xgeva -continue to replace aggressively, nephro/oncology input, continue to follow levels Otherwise as above Subjective Overall feeling well this morning, continuing to tolerate food and drink without complication, did feel like he had an uptick in his appetite yesterday following the trial of the medication to stimulate his appetite. Review of Systems Review of Systems: All systems reviewed & are unremarkable except as noted in Subjective Physical Exam Constitutional: WD/WN, vitals as above Eyes: PERRL, conjunctivae normal, anicteric sclerae Respiratory: normal respiratory effort; no respiratory distress and no labored breathing Cardiovascular: Vessels: normal peripheral pulses; no JVD Gastrointestinal (Abdomen): normal bowel sounds, soft, nontender, no hepatosplenomegaly Skin: no rashes, warm and dry Psychiatric: Orientation: alert and oriented x 3 Results & Data Results & Data ([facility]) Vital Signs (Past 12 Hours) Vital Signs Temp Pulse Pulse Resp BP Pulse Ox 09/23/20 07:11 69 09/23/20 07:00 36.8 C 73 18 153/87 H 94 09/23/20 04:00 37.0 C 63 18 157/83 H 95 09/22/20 23:07 36.8 C 73 18 153/84 H 92 09/22/20 22:19 71 Laboratory Results 09/23/20 09/23/20 Range/Units 07:01 07:01 WBC 11.33 H (4.8-10.8) K/uL RBC 4.69 L (4.7-6.1) M/uL Hgb 14.3 (14.0-18.0) g/dL Hct 39.8 L (42-52) % MCV 84.9 (80-100) fL MCH 30.5 (25-34) pg MCHC 35.9 (32-36) g/dL RDW Std Deviation 40.5 (36.4-46.3) fL RDW Coeff of Pardeep 13.1 (11.5-14.5) % Plt Count 188 (130-400) K/uL MPV 9.5 (7.4-10.4) fL Immature Gran % (Auto) 0.8 % Neut % (Auto) 85.6 % Lymph % (Auto) 8.7 % Robertson % (Auto) 4.9 % Eos % (Auto) 0.0 % Baso % (Auto) 0.0 % Neut # (Auto) 9.70 H (1.4-6.5) K/uL Lymph # (Auto) 0.99 L (1.2-3.4) K/uL Robertson # (Auto) 0.55 (0.11-0.59) K/uL Eos # (Auto) 0.00 (0-0.5) K/uL Baso # (Auto) 0.00 (0-0.2) K/uL Immature Gran # (Auto) 0.09 H (0.00-0.02) K/uL Sodium 134 L (136-145) mmol/L Potassium 2.6 L D (3.5-5.1) mmol/L Chloride 95 L (98-107) mmol/L Carbon Dioxide 34 H (21-32) mmol/L Anion Gap 5.0 (3-11) BUN 8 (7-18) mg/dl Creatinine 0.32 L (0.6-1.4) mg/dl Est Cr Clr Drug Dosing 185.1 ml/min Est GFR ( Amer) 143.5 Est GFR (Non-Af Amer) 123.8 BUN/Creatinine Ratio 25.0 H (10-20) Glucose 119 H (70-99) mg/dl Calcium 6.8 L (8.5-10.1) mg/dl Phosphorus 1.7 L (2.5-4.9) mg/dl Magnesium 2.0 (1.8-2.4) mg/dl Resident Activity Tracking Resident Involvement: Resident Care Provided Care Provided: Adult [facility]
--- NOTE | 2020-09-23 12:40 | Nephrology Consultation ---
Date of Consultation September 23, 2020 Assessment & Plan (1) Hypocalcemia: Related to Xgeva. Follow up calcium, albumin, 25OH D, and ionized calcium ordered. Supplementation with calcium and vitamin D to be provided as needed. (2) Hypophosphatemia: Jose Daniel does not have evidence of RTA II or prox tubule dysfunction including glucosuria. I suspect this is related to malnutrition and Xgeva. No TUMS or PO4 binders. No recent IV iron. Remains on K Phos QID. Repeat labs pending. (3) Acute hypokalemia: Associated with loop diuretic and decreased PO intake. Remains on KCl replacement and MgOx. Will recheck now and provide additional IV as needed. (4) Acute hyponatremia: Chronic, mild. Asymptomatic. Related to loop diuretic and hypokalemia. Will monitor. History of Present Illness Reason for Consultation: Hypokalemia and hypophosphatemia Requesting Physician: Derick Barreto DO Attending Physician: Derick Barreto DO History of Present Illness Mr. Jose Daniel France is a 80-year-old male with metastatic prostate cancer with bone lesions, hypertension, depression, history of CVA, and dyslipidemia. He was admitted to [facility] with persistent electrolyte abnormalities including hypokalemia and hypophosphatemia. Jose Daniel was similarly admitted earlier this month. At that time, he was struggling with notable LE edema. He does not have evidence of heart failure. He was diuresed with furosemide and volume status improved. Unfortunately, functional status remains limited. Jose Daniel has been struggling with poor oral intake, constipation, and weakness. He lives at home with his sister. Jose Daniel notes that he has been struggling at home with some basic activities. Treatment of his cancer includes Lupron, Xtandi, and Xgeva. Nephrology consultation requested this AM due to persistent electrolyte abnormalities despite replacement. I personally discussed the patient's condition with Dr. Barreto this AM. Allergies Allergy/AdvReac Type Severity Reaction Status Date / Time No Known Allergies Allergy Unverified 09/16/20 16:04 Home Medications Medication Instructions Recorded Confirmed Type Boost 1 ea PO DAILY #0 01/10/18 09/16/20 History Fiber (psyllium husk/sugar) 1 tsp PO DAILY #0 01/10/18 09/16/20 History aspirin [Aspirin Low Dose] 81 mg PO DAILY #0 01/10/18 09/16/20 History atorvastatin 40 mg PO QAM #0 tab 01/10/18 09/16/20 History loratadine 10 mg PO DAILY PRN #0 tab 01/10/18 09/16/20 History polyethylene glycol 3350 [Miralax] 17 g PO DAILY PRN #527 g 01/10/18 09/16/20 History ferrous sulfate 325 mg (65 mg 325 mg PO DAILY 01/08/20 09/16/20 History iron) tablet metoprolol tartrate 25 mg tablet 25 mg PO DAILY tab 01/08/20 09/16/20 History omeprazole 20 mg capsule,delayed 20 mg PO DAILY 01/08/20 09/16/20 History release paroxetine HCl 20 mg tablet 20 mg PO HS 01/08/20 09/16/20 History prednisone 5 mg tablet 5 mg PO DAILY 01/08/20 09/16/20 History oxybutynin chloride 5 mg tablet 5 mg PO BID PRN #60 tab 06/17/20 09/16/20 Rx Lupron Depot (6 Month) 0 mg IM .[id number] 09/02/20 09/16/20 History furosemide [Lasix] 20 mg PO DAILY PRN #30 tab 09/04/20 09/16/20 Rx walker #1 ea 09/04/20 09/16/20 Rx amlodipine 2.5 mg PO DAILY 09/16/20 09/16/20 History denosumab [Xgeva] 0 mg SUBCUT MO 09/16/20 09/16/20 History dicyclomine 20 mg PO Q6 PRN 09/16/20 09/16/20 History docusate sodium 300 mg PO DAILY 09/16/20 09/16/20 History enzalutamide [Xtandi] 160 mg PO DAILY 09/16/20 09/16/20 History potassium chloride 20 meq PO DAILY PRN 09/16/20 09/16/20 History sennosides 50 mg PO .Q4DAYS PRN 09/16/20 09/16/20 History vit C,C-Qh-jmuja-lutein-zeaxan 2 tab PO DAILY 09/16/20 09/16/20 History [PreserVision AREDS-2] Patient History Medical History Acute UTI Prostate cancer (07/14/13) "Development of urinary difficulty, urinary retention, flaccid bladder, indwelling Loredo catheter PSA elevated at 15.360 July 14, 2013 Status post ultrasound core biopsies July 31, 2014 Adenocarcinoma [place] 3+3, 4+3, and 4+5 Initiation of Lupron therapy which continued until June 2017 Missed injection PSA radha to 89 Restart of Lupron therapy Recheck PSA September 29, 2017 0.390 PSA November 16, 2017 0.072" Surgical History H/O eye surgery History of prostate biopsy Hx of tonsillectomy Family History Sister Diabetes Nephrolithiasis Cancer Other No significant family history Social History Smoking Status: Never smoker Second Hand Exposure: No; Hx Alcohol Use: No Hx Substance Use: No Preferred Language: Telugu Communication Ability: Effective 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 Beliefs That Will Affect Care: None marital status: Single Current Living Situation: Family Current Living Situation Comment: lives with sister current occupational status: retired Other Information That Helps Us Care for You: No Feels Safe at Home: Yes Safety Concerns: Feels Safe At This Time Assistive Devices: None Review of Systems Constitutional: + fatigue, + weakness and + anorexia; no weight loss Eyes: no problem reported Ear, Nose, Mouth, Throat: + hearing loss and + dry mouth; no dental pain, no sore throat and no dysphagia Respiratory: no problem reported Cardiovascular: no edema and no problem reported Gastrointestinal: + constipation; no early satiety and no nausea Genitourinary: + problem reported Musculoskeletal: no problem reported Integumentary: + dry skin; no rash Neurologic: no problem reported Psychiatric: no problem reported Physical Exam Constitutional: + frail appearing; no acute distress Eyes: + eyelid abnormality and + anicteric sclerae ENMT: Mouth: + dry oral mucous membranes and + poor dentition Neck: normal visual inspection and trachea midline Respiratory: normal respiratory effort Auscultation: lungs clear to auscultation bilaterally Cardiovascular: Rate/Rhythm: regular rate Heart Sounds: normal S1 and normal S2 Extremities: no edema Musculoskeletal: Extremities: no cyanosis and no clubbing Skin: normal turgor; no lesions Neurologic: Motor/Sensory: no tremor and no asterixis Psychiatric: Orientation: alert and oriented x 3 Results & Data ([facility]) Vital Signs (Past 12 Hours) Vital Signs Temp Pulse Pulse Resp BP Pulse Ox 09/23/20 10:57 36.9 C 69 16 147/86 H 94 09/23/20 07:11 69 09/23/20 07:00 36.8 C 73 18 153/87 H 94 09/23/20 04:00 37.0 C 63 18 157/83 H 95 PG Care Time/CCT Total # of Minutes Spent Total Time Spent with Patient: Total time spent is greater than 50% in coordination of care (as documented) at patient's floor/unit and/or counseling patient: Coding Level of Care Code 21015 Inpt Consult Level 4 Diagnoses Hypocalcemia E83.51 Hypophosphatemia E83.39 Acute hypokalemia E87.6 Acute hyponatremia E87.1
[2020-09-23 14:05] LABS: Albumin Level 2.5 gm/dl (3.4-5.0); BUN Creatinine Ratio 16.8 (10-20); Calcium 6.9 mg/dl (8.5-10.1); Creatinine Clr Calc Pharmacy 109.7 ml/min; Est GFR (African American) 115.7; Est GFR (Non-African American) 99.9; Magnesium 2.1 mg/dl (1.8-2.4); Potassium 3.2 mmol/L (3.5-5.1)
[2020-09-23 14:24] LABS: Phosphorus 1.5 mg/dl (2.5-4.9)
[2020-09-23] MEDS ORDERED: POTASSIUM PHOS 3 MMOL/1 ML INFUSION IV STA (14:27)
[2020-09-23] MEDS ORDERED: POTASSIUM PHOSPHATE 21 MMOL in SODIUM CHLORIDE 0.9% 500 ML IV ONE (14:45)
[2020-09-23] MEDS: ENZALUTAMIDE 40 MG PO SCH (14:50)
[2020-09-23] MEDS ORDERED: ERGOCALCIFEROL 50,000 UNITS 1250 MCG CAP PO STA (15:57)
[2020-09-23] MEDS ORDERED: CALCIUM GLUCONATE 10% 2,000 MG in SODIUM CHLORIDE 0.9% 50 ML IV STA (15:57)
--- NOTE | 2020-09-23 17:36 | Billing Data ---
Date of Service September 23, 2020 Coding Level of Care Code 57555 Subseq Hosp Care Lvl 3
[2020-09-23] MEDS: ENOXAPARIN INJ 40 MG/0.4 ML SYR SQ SCH (20:10)
[2020-09-23] MEDS: PARoxetine HCL 20 MG TAB PO SCH (20:11)
--- NOTE | 2020-09-23 21:23 | Consultation Report ---
DATE OF CONSULTATION: 09/23/2020 MEDICAL ONCOLOGY CONSULTATION REASON FOR CONSULTATION: Electrolyte dysfunction in this 80-year-old gentleman with hormone refractory metastatic prostate cancer. HISTORY OF PRESENT ILLNESS: Mr. France is a pleasant 80-year-old gentleman well known to [facility] with a diagnosis of hormone refractory metastatic prostate cancer under my care. Jose Daniel was recently started on Xtandi 160 mg p.o. daily in mid July of 2020 because of refractory progressive disease. He has had 2 hospitalizations for subacute-onset profound lower extremity edema. He was successfully diuresed, sent home. A couple weeks later, showed up in the office again with significant bilateral extremity edema. This gentleman also had significant electrolyte dysfunction on admission, particularly hypokalemia and hypophosphatemia. Mr. France receives monthly bisphosphonate therapy, which may or may not be the underlying cause for his electrolyte dysfunction, specifically the hypophosphatemia, which is a known common side effect of these agents. I also question Jose Daniel's medication compliance once he gets out of the hospital considering how fast he landed back in the hospital for the same problem. Mr. France was originally diagnosed with prostate cancer in 2014. He has been on standard therapy followed by Zytiga and prednisone, which began in mid December and discontinued in July of this year due to a rising PSA. He has now been hospitalized close to a week. His legs definitely looks much, much better. Jose Daniel is in good spirits and offers no specific complaints. I took a note of his profoundly decreased phosphorus and potassium levels. PAST MEDICAL HISTORY: Again significant for chronic indwelling Loredo catheter, depression with anxiety, hormone refractory prostate cancer, history of CVA, hypertension, and hyperlipidemia. PAST SURGICAL HISTORY: Prostate biopsy, history of eye surgery and tonsillectomy. CURRENT MEDICATIONS: Include aspirin 81 mg p.o. daily, atorvastatin 40 mg p.o. daily, loratadine 10 mg p.o. daily p.r.n., MiraLax 17 grams p.o. daily p.r.n., ferrous sulfate 325 mg p.o. daily, metoprolol tartrate 25 mg p.o. daily, omeprazole 20 mg p.o. daily, paroxetine 20 mg p.o. at bedtime, prednisone 5 mg p.o. daily, oxybutynin 5 mg p.o. b.i.d. p.r.n., Lupron 45 mg intramuscular dose q.6 months, Lasix 20 mg p.o. daily p.r.n., amlodipine 2.5 mg p.o. daily, Xgeva -- he was receiving 120 mg subQ q.monthly, dicyclomine 20 mg p.o. q.6 hours p.r.n., docusate sodium 300 mg p.o. daily, Xtandi 160 mg p.o. daily, potassium chloride 20 mEq p.o. daily p.r.n. ALLERGIES: No known drug allergies. FAMILY HISTORY: Positive for diabetes mellitus. SOCIAL HISTORY: The patient lives with his sister. Negative for cigarettes, alcohol or illicit substances. REVIEW OF SYSTEMS: CONSTITUTIONAL: Weight gain and profound lower extremity edema. No fevers, chills or sweats. He is not anorexic or losing weight. SKIN: No rashes or lesions. No history of dermatoses. HEENT: He denies headaches, lightheadedness or dizziness. No acute visual or hearing deficits. No sinus symptoms, sore throat or dysphagia. LYMPHATICS: No history of lymphoproliferative disease. CARDIAC: No current angina or palpitations. PULMONARY: He is not short of breath, dyspneic or orthopneic. No cough or hemoptysis. GASTROINTESTINAL: Negative for abdominal pain, nausea, vomiting, diarrhea or constipation, hematochezia or melena stools. GENITOURINARY: Indwelling Loredo catheter. MUSCULOSKELETAL: Positive for metastatic osseous disease. ENDOCRINE: Negative for diabetes or thyroid disease. NEUROLOGIC: Negative for seizure, stroke, or migraine headache. HEMATOLOGIC: Positive for leukocytosis. PHYSICAL EXAMINATION: GENERAL: Very pleasant 80-year-old gentleman, awake, alert and appropriate, in no acute distress. VITAL SIGNS: Temperature 37, pulse 71, respiratory rate 18, blood pressure 153/85. SKIN: Warm, dry, noncyanotic without petechia, rash or ecchymosis. HEENT: Head is atraumatic, normocephalic. Eyes: He has a strabismus involving his right eye. Nares patent without rhinorrhea or nasal congestion. Throat clear. Dentation in poor repair. Mucous membranes are moist. NECK: Supple. HEART: Regular rate and rhythm. LUNGS: Clear to auscultation bilaterally. ABDOMEN: Soft, nontender, nondistended. EXTREMITIES: Much vastly improved trace to no edema present in his bilateral lower extremities. NEUROLOGICAL: He is awake, alert and oriented x3. LABORATORY DATA: WBC count 11,330, hemoglobin 14.3, platelet count 188,000. Sodium 134, potassium 3.2, chloride 96, carbon dioxide 33, creatinine 0.54, BUN 9, phosphorus 1.5, calcium 6.9, ionized calcium 9.2, albumin 2.5. IMPRESSION: 1. Electrolyte dysfunction/hypophosphatemia/hypocalcemia. 2. Lower extremity edema. 3. Hypoalbuminemia. 4. Hormone refractory prostate cancer. PLAN: I have been asked to look in on Mr. France who is a very pleasant 80-year-old gentleman well known to [facility] with hormone refractory metastatic prostate cancer. He recently had his therapy changed to Xtandi after progressing on Zytiga in combination prednisone and he received leuprolide and bicalutamide prior to that. He has not been exposed to cytotoxic chemotherapy and I am not anxious to do so either. His disease has not progressed rapidly. He has now been on Xtandi for a little over a month. I would agree with the hospitalist service. His electrolytes are certainly depleted and Xgeva is not helping in that regard with a plan to supplement Calcium, phosphorus and potassium. This gentleman probably benefit from a few doses of daily albumin before he is discharged as well. He needs to be a bit more compliant with his diuresis once he is out of the hospital to avoid readmission. Again, I will hold Xgeva for the foreseeable future and carefully monitor his electrolytes at his next scheduled followup. Thank you very much for allowing me to participate in his care. If you have any questions or concerns, please feel free to contact me at any time. ALEXA
[2020-09-23] MEDS ORDERED: CALCIUM GLUCONATE 10% 1,000 MG in SODIUM CHLORIDE 0.9% 50 ML IV ONE (21:26)
[2020-09-24 06:01] LABS: Basophils # (auto) 0.01 K/uL (0-0.2); Basophils % (auto) 0.1 %; Hematocrit (blood only) 40.5 % (42-52); Immature Granulocytes # (auto) 0.08 K/uL (0.00-0.02); Immature Granulocytes % (auto) 0.7 %; Lymphocytes # (auto) 1.03 K/uL (1.2-3.4); Lymphocytes % (auto) 8.8 %; Mean Corpuscular Hemoglobin 29.7 pg (25-34); Mean Corpuscular Hgb Conc 34.6 g/dL (32-36); Monocytes # (auto) 0.52 K/uL (0.11-0.59); Monocytes % (auto) 4.4 %; Neutrophils # (auto) 10.06 K/uL (1.4-6.5); Platelet Count 189 K/uL (130-400); RDW Coefficient of Variation 12.9 % (11.5-14.5); RDW Standard Deviation 40.7 fL (36.4-46.3); Red Blood Count 4.71 M/uL (4.7-6.1)
[2020-09-24 06:52] LABS: Albumin Level 2.4 gm/dl (3.4-5.0); BUN Creatinine Ratio 19.2 (10-20); Calcium 6.9 mg/dl (8.5-10.1); Creatinine Clr Calc Pharmacy 185.1 ml/min; Est GFR (African American) 143.5; Est GFR (Non-African American) 123.8; Magnesium 1.8 mg/dl (1.8-2.4); Phosphorus 1.7 mg/dl (2.5-4.9); Potassium 2.3 mmol/L (3.5-5.1)
--- NOTE | 2020-09-24 07:04 | Hospitalist Progress Note ---
Date of Service September 24, 2020 Assessment & Plan (1) Acute hypokalemia: Jose Daniel France is a 80y/o M with PMH significant for HTN, dyslipidemia, prostate cancer, and depression. Acute Hypokalemia/hypophosphatemia: -Severe and recurrent/persistent hypokalemia, along with hypophosphatemia -Either way, appears he will need ongoing aggressive potassium and phosphorus supplementation, as well as frequent following of labs -continue to monitor daily and replace with KCl PO QID, and KPhos QID -Nephrology/oncology consulted: Xygeva and lasix likely playing a role in his continued depleted electrolytes, holding going forward would be appropriate Prostate cancer: -Patient 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 As above as it relates to his Xgeva Dyslipidemia: -Continues on atorvastatin Hypertension: -Continues on metoprolol for secondary risk reduction with aspirin and statin as mentioned Constipation: -made aware that patient has not had bowel movement in multiple days -patient having mild discomfort -concerned that medications to relieve constipation would exacerbate our electrolyte depletion -as patient is not overtly symptomatic will hold off at this point in time, reconsideration if worsening Diet: Low sodium diet CODE STATUS: Full Code DVT PPx: Lovenox SQ (2) Hypophosphatemia: (3) Bilateral lower extremity edema: (4) Prostate cancer: (5) Urinary retention: (6) Dyslipidemia: (7) Hypertension: (8) Depression with anxiety: (9) DVT prophylaxis: (10) Discharge planning issues: Admission and Anticipated Discharge Date Admission Date: September 16, 2020 Supervising Physician Co-Signing Physician Notes I personally examined the patient and verified all townsend points of history and exam, discussed case, and agree with decision making with Dr Duarte feeling about the same. operational risk consultant input appreciated. discussed w hematology vitals noted nad heent nc at mmm breathing unlabored no accessory muscles good effort skin no rashes no pallor or icterus persistent/refractory hypokalemia/hypophosphatemia - ?malnutrition and depletion from lasix vs from Xgeva -- probably elements of all of above, but Xgeva -> low Ca/high PTH probably largely causative of problems -continue to replace aggressively -Xgeva stopped -supplmeent D and calcium -spot recheck PTH to ensure it is trending down Otherwise as above Subjective Patient feels about the same as previously, but has not had a bowel movement in multiple days, has some discomfort with knowing that he has not had bowel movement. Typically takes miralax at home and has it at his bedside but has not been taking. Not having shortness of breath, chest pain, abdominal pain, nausea/vomiting, leg or arm cramps. Review of Systems Review of Systems: All systems reviewed & are unremarkable except as noted in Subjective Physical Exam Constitutional: WD/WN, vitals as above Eyes: PERRL, conjunctivae normal, anicteric sclerae Respiratory: normal respiratory effort; no respiratory distress and no labored breathing Cardiovascular: Vessels: normal peripheral pulses; no JVD Gastrointestinal (Abdomen): normal bowel sounds, soft, nontender, no hepatosplenomegaly Skin: no rashes, warm and dry Psychiatric: Orientation: alert and oriented x 3 Results & Data Results & Data ([facility]) Vital Signs (Past 12 Hours) Vital Signs Temp Pulse Pulse Resp BP Pulse Ox 09/24/20 03:31 36.8 C 97 H 20 156/85 H 94 09/23/20 23:43 36.9 C 63 16 164/88 H 94 09/23/20 22:20 73 09/23/20 19:25 36.9 C 64 18 162/84 H 94 Laboratory Results 09/24/20 09/24/20 09/24/20 Range/Units 15:05 05:31 05:31 WBC (4.8-10.8) K/uL RBC (4.7-6.1) M/uL Hgb (14.0-18.0) g/dL Hct (42-52) % MCV (80-100) fL MCH (25-34) pg MCHC (32-36) g/dL RDW Std Deviation (36.4-46.3) fL RDW Coeff of Pardeep (11.5-14.5) % Plt Count (130-400) K/uL MPV (7.4-10.4) fL Immature Gran % (Auto) % Neut % (Auto) % Lymph % (Auto) % [place] % (Auto) % Eos % (Auto) % Baso % (Auto) % Neut # (Auto) (1.4-6.5) K/uL Lymph # (Auto) (1.2-3.4) K/uL [place] # (Auto) (0.11-0.59) K/uL Eos # (Auto) (0-0.5) K/uL Baso # (Auto) (0-0.2) K/uL Immature Gran # (Auto) (0.00-0.02) K/uL Sodium 135 L 136 (136-145) mmol/L Potassium 3.1 L D 2.3 L* D (3.5-5.1) mmol/L Chloride 98 96 L (98-107) mmol/L Carbon Dioxide 32 34 H (21-32) mmol/L Anion Gap 5.0 6.0 (3-11) BUN 9 6 L (7-18) mg/dl Creatinine 0.47 L 0.32 L (0.6-1.4) mg/dl Est Cr Clr Drug Dosing 124.2 185.1 ml/min Est GFR ( Amer) 122.5 143.5 Est GFR (Non-Af Amer) 105.7 123.8 BUN/Creatinine Ratio 18.8 19.2 (10-20) Glucose 151 H 111 H (70-99) mg/dl Calcium 7.1 L 6.9 L (8.5-10.1) mg/dl Phosphorus 1.9 L 1.7 L (2.5-4.9) mg/dl Magnesium 1.9 1.8 (1.8-2.4) mg/dl Total Bilirubin 0.7 (0.2-1) mg/dl AST 74 H (15-37) U/L ALT 56 (12-78) U/L Alkaline Phosphatase 134 H (45-117) U/L Total Protein 5.5 L (6.4-8.2) gm/dl Albumin 2.3 L 2.4 L (3.4-5.0) gm/dl Globulin 3.2 (2.5-4.0) gm/dl Albumin/Globulin Ratio 0.7 L (0.9-2) PTH Intact 475.3 H (18.4-80.1) pg/ml 09/24/20 Range/Units 05:31 WBC 11.70 H (4.8-10.8) K/uL RBC 4.71 (4.7-6.1) M/uL Hgb 14.0 (14.0-18.0) g/dL Hct 40.5 L (42-52) % MCV 86.0 (80-100) fL MCH 29.7 (25-34) pg MCHC 34.6 (32-36) g/dL RDW Std Deviation 40.7 (36.4-46.3) fL RDW Coeff of Pardeep 12.9 (11.5-14.5) % Plt Count 189 (130-400) K/uL MPV 10.0 (7.4-10.4) fL Immature Gran % (Auto) 0.7 % Neut % (Auto) 86.0 % Lymph % (Auto) 8.8 % [place] % (Auto) 4.4 % Eos % (Auto) 0.0 % Baso % (Auto) 0.1 % Neut # (Auto) 10.06 H (1.4-6.5) K/uL Lymph # (Auto) 1.03 L (1.2-3.4) K/uL [place] # (Auto) 0.52 (0.11-0.59) K/uL Eos # (Auto) 0.00 (0-0.5) K/uL Baso # (Auto) 0.01 (0-0.2) K/uL Immature Gran # (Auto) 0.08 H (0.00-0.02) K/uL Sodium (136-145) mmol/L Potassium (3.5-5.1) mmol/L Chloride (98-107) mmol/L Carbon Dioxide (21-32) mmol/L Anion Gap (3-11) BUN (7-18) mg/dl Creatinine (0.6-1.4) mg/dl Est Cr Clr Drug Dosing ml/min Est GFR ( Amer) Est GFR (Non-Af Amer) BUN/Creatinine Ratio (10-20) Glucose (70-99) mg/dl Calcium (8.5-10.1) mg/dl Phosphorus (2.5-4.9) mg/dl Magnesium (1.8-2.4) mg/dl Total Bilirubin (0.2-1) mg/dl AST (15-37) U/L ALT (12-78) U/L Alkaline Phosphatase (45-117) U/L Total Protein (6.4-8.2) gm/dl Albumin (3.4-5.0) gm/dl Globulin (2.5-4.0) gm/dl Albumin/Globulin Ratio (0.9-2) PTH Intact (18.4-80.1) pg/ml Resident Activity Tracking Resident Involvement: Resident Care Provided Care Provided: Adult [facility]
[2020-09-24] MEDS ORDERED: POTASSIUM PHOS 3 MMOL/1 ML INFUSION IV STA ×2 (07:20→16:11)
[2020-09-24] MEDS ORDERED: POTASSIUM PHOSPHATE 21 MMOL in SODIUM CHLORIDE 0.9% 500 ML IV ONE (07:30)
[2020-09-24] MEDS: ASPIRIN 81 MG ECTAB PO SCH (07:47)
[2020-09-24] MEDS: METOPROLOL TARTRATE 25 MG TAB PO SCH (07:47)
[2020-09-24] MEDS: POT PHOSPHATE MONOBASIC W/ SOD TAB PO SCH ×4 (07:47→20:54)
[2020-09-24] MEDS: PANTOprazole 40 MG TAB PO SCH (07:47)
[2020-09-24] MEDS: ATORVASTATIN 40 MG TAB PO SCH (07:47)
[2020-09-24] MEDS: PSYLLIUM 58.6% POWDER PACKET PO SCH (07:47)
[2020-09-24] MEDS: amLODIPine BESYLATE 5 MG TAB PO SCH (07:47)
[2020-09-24] MEDS: MAGNESIUM OXIDE 400 MG TAB PO SCH (07:47)
[2020-09-24] MEDS: POTASSIUM CHLORIDE CRTAB 20 MEQ TABCR PO SCH ×5 (07:48→20:54)
[2020-09-24] MEDS: predniSONE 5 MG TAB PO SCH (07:48)
[2020-09-24] MEDS: DOCUSATE SODIUM 100 MG CAP PO SCH (07:53)
[2020-09-24] MEDS ORDERED: ERGOCALCIFEROL 50,000 UNITS 1250 MCG CAP PO SCH ×2 (08:00→09:00)
[2020-09-24] MEDS ORDERED: CALCIUM GLUCONATE 10% 2,000 MG in SODIUM CHLORIDE 0.9% 50 ML IV ONE ×2 (09:00→12:00)
--- NOTE | 2020-09-24 09:29 | Nephrology Progress Note ---
Date of Service September 24, 2020 Assessment & Plan (1) Hypocalcemia: Related to Xgeva. Additional 2 grams of calcium gluconate ordered for this AM. Ergocalciferol 00240 units provided yesterday. D3 2000 units daily and calcitriol 0.25 mcg daily started this AM. Follow up calcium and albumin ordered for this afternoon. PTH pending. Xgeva held for now but if considering restarting in the future, I would encourage aggressive calcium and vitamin D supplementation. (2) Hypophosphatemia: I suspect there is a component of renal wasting related to secondary hyperparathyroidism from hypocalcemia associated with Xgeva. PTH pending. Aggressive calcium and vitamin D replacement started as stated above. Malnutrition certainly contributing. Avoid TUMS or any potential PO4 binders with meals. Remains on K Phos QID. Additional IV K phos to be provided this AM as well. Continue to monitor labs twice daily and replace as needed. (3) Acute hypokalemia: Associated with loop diuretic, decreased PO intake, and hypokalemia. (4) Acute hyponatremia: Admission and Anticipated Discharge Date Admission Date: September 16, 2020 Subjective Jose Daniel was resting comfortably in bed this AM. Appetite not great but was able to eat a little more for breakfast. States he feels the same as yesterday, "a bit sluggish." Denies dyspnea. No cramps. No events overnight. Review of Systems Review of Systems: All systems reviewed & are unremarkable except as noted in HPI & below Physical Exam Constitutional: + frail appearing; no acute distress Eyes: + anicteric sclerae ENMT: Mouth: + dry oral mucous membranes and + poor dentition Neck: normal visual inspection and trachea midline Respiratory: normal respiratory effort Auscultation: lungs clear to auscultation bilaterally Cardiovascular: Rate/Rhythm: regular rate Heart Sounds: normal S1 and normal S2 Vessels: no JVD Extremities: + edema Musculoskeletal: Extremities: no cyanosis and no clubbing Skin: normal turgor; no lesions Neurologic: Motor/Sensory: no tremor and no asterixis Psychiatric: Orientation: alert and oriented x 3 Results & Data ([facility]) Vital Signs (Past 12 Hours) Vital Signs Temp Pulse Pulse Resp BP BP Pulse Ox 09/24/20 08:00 78 09/24/20 07:36 36.8 C 77 16 132/75 94 09/24/20 03:31 36.8 C 97 H 20 156/85 H 94 09/23/20 23:43 36.9 C 63 16 164/88 H 94 09/23/20 22:20 73 Laboratory Results Laboratory Results - last 24 hr 09/23/20 09/23/20 09/23/20 07:01 13:22 13:22 WBC RBC Hgb Hct MCV MCH MCHC RDW Std Deviation RDW Coeff of Pardeep Plt Count MPV Immature Gran % (Auto) 0.8 Neut % (Auto) 85.6 Lymph % (Auto) 8.7 [place] % (Auto) 4.9 Eos % (Auto) 0.0 Baso % (Auto) 0.0 Neut # (Auto) 9.70 H Lymph # (Auto) 0.99 L [place] # (Auto) 0.55 Eos # (Auto) 0.00 Baso # (Auto) 0.00 Immature Gran # (Auto) 0.09 H Sodium 134 L Potassium 3.2 L D Chloride 96 L Carbon Dioxide 33 H Anion Gap 5.0 BUN 9 Creatinine 0.54 L Est Cr Clr Drug Dosing 109.7 Est GFR ( Amer) 115.7 Est GFR (Non-Af Amer) 99.9 BUN/Creatinine Ratio 16.8 Glucose 112 H Calcium 6.9 L Ionized Calcium Phosphorus 1.5 L* Magnesium 2.1 Albumin 2.5 L 25-OH Vitamin D Total 20.4 L PTH Intact 09/23/20 09/24/20 09/24/20 13:22 05:31 05:31 WBC 11.70 H RBC 4.71 Hgb 14.0 Hct 40.5 L MCV 86.0 MCH 29.7 MCHC 34.6 RDW Std Deviation 40.7 RDW Coeff of Pardeep 12.9 Plt Count 189 MPV 10.0 Immature Gran % (Auto) 0.7 Neut % (Auto) 86.0 Lymph % (Auto) 8.8 [place] % (Auto) 4.4 Eos % (Auto) 0.0 Baso % (Auto) 0.1 Neut # (Auto) 10.06 H Lymph # (Auto) 1.03 L [place] # (Auto) 0.52 Eos # (Auto) 0.00 Baso # (Auto) 0.01 Immature Gran # (Auto) 0.08 H Sodium 136 Potassium 2.3 L* D Chloride 96 L Carbon Dioxide 34 H Anion Gap 6.0 BUN 6 L Creatinine 0.32 L Est Cr Clr Drug Dosing 185.1 Est GFR ( Amer) 143.5 Est GFR (Non-Af Amer) 123.8 BUN/Creatinine Ratio 19.2 Glucose 111 H Calcium 6.9 L Ionized Calcium 0.92 L Phosphorus 1.7 L Magnesium 1.8 Albumin 2.4 L 25-OH Vitamin D Total PTH Intact 09/24/20 05:31 WBC RBC Hgb Hct MCV MCH MCHC RDW Std Deviation RDW Coeff of Pardeep Plt Count MPV Immature Gran % (Auto) Neut % (Auto) Lymph % (Auto) [place] % (Auto) Eos % (Auto) Baso % (Auto) Neut # (Auto) Lymph # (Auto) [place] # (Auto) Eos # (Auto) Baso # (Auto) Immature Gran # (Auto) Sodium Potassium Chloride Carbon Dioxide Anion Gap BUN Creatinine Est Cr Clr Drug Dosing Est GFR ( Amer) Est GFR (Non-Af Amer) BUN/Creatinine Ratio Glucose Calcium Ionized Calcium Phosphorus Magnesium Albumin 25-OH Vitamin D Total PTH Intact Pending PG Care Time/CCT Total # of Minutes Spent Total Time Spent with Patient: Total time spent is greater than 50% in coordination of care (as documented) at patient's floor/unit and/or counseling patient: Coding Level of Care Code 63218 Subseq Hosp Care Lvl 3 Diagnoses Hypocalcemia E83.51 Hypophosphatemia E83.39 Acute hypokalemia E87.6 Acute hyponatremia E87.1
[2020-09-24] MEDS: CALCITRIOL 0.25 MCG CAPSULE PO SCH (09:39)
[2020-09-24] MEDS: CHOLECALCIFEROL 1,000 UNITS 25 MCG TAB PO SCH (09:39)
[2020-09-24] MEDS: ENZALUTAMIDE 40 MG PO SCH (12:56)
[2020-09-24 16:07] LABS: Albumin Level 2.3 gm/dl (3.4-5.0); BUN Creatinine Ratio 18.8 (10-20); Calcium 7.1 mg/dl (8.5-10.1); Creatinine Clr Calc Pharmacy 124.2 ml/min; Est GFR (African American) 122.5; Est GFR (Non-African American) 105.7; Magnesium 1.9 mg/dl (1.8-2.4); Potassium 3.1 mmol/L (3.5-5.1)
[2020-09-24 16:10] LABS: Albumin Globulin Ratio 0.7 (0.9-2); Bilirubin,Total 0.7 mg/dl (0.2-1); Globulin 3.2 gm/dl (2.5-4.0); Phosphorus 1.9 mg/dl (2.5-4.9); Total Protein 5.5 gm/dl (6.4-8.2)
[2020-09-24] MEDS ORDERED: CALCIUM GLUCONATE 10% 1,000 MG in SODIUM CHLORIDE 0.9% 50 ML IV ONE (16:11)
[2020-09-24] MEDS ORDERED: POTASSIUM PHOSPHATE 30 MMOL in SODIUM CHLORIDE 0.9% 500 ML IV ONE (16:45)
--- NOTE | 2020-09-24 17:09 | Billing Data ---
Date of Service September 24, 2020 Coding Level of Care Code 17804 Subseq Hosp Care Lvl 3
[2020-09-24] MEDS: ENOXAPARIN INJ 40 MG/0.4 ML SYR SQ SCH (20:55)
[2020-09-24] MEDS: CALCIUM CARBONATE 500 MG CHEWABLE TAB PO SCH (20:56)
[2020-09-24] MEDS: PARoxetine HCL 20 MG TAB PO SCH (20:57)
[2020-09-25] MEDS ORDERED: MELATONIN 3 MG TAB PO PRN (01:36)
[2020-09-25] MEDS ORDERED: MELATONIN 3 MG TAB PO ONE (01:42)
[2020-09-25 08:25] LABS: BUN Creatinine Ratio 23.8 (10-20); Calcium 7.4 mg/dl (8.5-10.1); Creatinine Clr Calc Pharmacy 166.5 ml/min; Est GFR (African American) 138.3; Est GFR (Non-African American) 119.4; Phosphorus 1.9 mg/dl (2.5-4.9); Potassium 2.7 mmol/L (3.5-5.1)
[2020-09-25] MEDS ORDERED: POTASSIUM PHOS 3 MMOL/1 ML INFUSION IV STA (08:33)
[2020-09-25] MEDS: POTASSIUM CHLORIDE CRTAB 20 MEQ TABCR PO SCH ×4 (08:45→20:18)
[2020-09-25] MEDS: ASPIRIN 81 MG ECTAB PO SCH (08:45)
[2020-09-25] MEDS: ATORVASTATIN 40 MG TAB PO SCH (08:46)
[2020-09-25] MEDS: METOPROLOL TARTRATE 25 MG TAB PO SCH (08:46)
[2020-09-25] MEDS: MAGNESIUM OXIDE 400 MG TAB PO SCH (08:46)
[2020-09-25] MEDS: amLODIPine BESYLATE 5 MG TAB PO SCH (08:47)
[2020-09-25] MEDS: PSYLLIUM 58.6% POWDER PACKET PO SCH (08:47)
[2020-09-25] MEDS: predniSONE 5 MG TAB PO SCH (08:48)
[2020-09-25] MEDS: POT PHOSPHATE MONOBASIC W/ SOD TAB PO SCH ×4 (08:48→20:17)
[2020-09-25] MEDS: CALCITRIOL 0.25 MCG CAPSULE PO SCH (08:48)
[2020-09-25] MEDS: PANTOprazole 40 MG TAB PO SCH (08:48)
[2020-09-25] MEDS: CHOLECALCIFEROL 1,000 UNITS 25 MCG TAB PO SCH (08:49)
[2020-09-25] MEDS ORDERED: POTASSIUM PHOSPHATE 30 MMOL in SODIUM CHLORIDE 0.9% 500 ML IV ONE (09:30)
[2020-09-25] MEDS: DOCUSATE SODIUM 100 MG CAP PO SCH (09:36)
[2020-09-25] MEDS: CALCIUM CARBONATE 500 MG CHEWABLE TAB PO SCH ×3 (09:36→20:17)
--- NOTE | 2020-09-25 09:37 | Hospitalist Progress Note ---
Date of Service September 25, 2020 Assessment & Plan (1) Acute hypokalemia: Jose Daniel France is a 80y/o M with PMH significant for HTN, dyslipidemia, prostate cancer, and depression. 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 As above as it relates to his Xgeva Dyslipidemia: -Continues on atorvastatin Hypertension: -Continues on metoprolol for secondary risk reduction Constipation: -patient has not had bowel movement in multiple days -concerned that medications to relieve constipation would exacerbate electrolyte depletion -as patient is not symptomatic will hold off at this point in time, reconsideration if worsening Diet: Low sodium diet CODE STATUS: Full Code DVT PPx: Lovenox SQ (2) Hypophosphatemia: (3) Bilateral lower extremity edema: (4) Prostate cancer: (5) Urinary retention: (6) Dyslipidemia: (7) Hypertension: (8) Depression with anxiety: (9) DVT prophylaxis: (10) Discharge planning issues: Admission and Anticipated Discharge Date Admission Date: September 16, 2020 Supervising Physician Co-Signing Physician Notes I personally examined the patient and verified all town[place] points of history and exam, discussed case, and agree with decision making with Dr Duarte Feels about the same, may be eating a little better. vitals noted nad heent nc at mmm breathing unlabored no accessory muscles good effort skin no rashes no pallor or icterus persistent/refractory hypokalemia/hypophosphatemia - ?malnutrition and depletion from lasix vs from Xgeva -- probably elements of all of above, but Xgeva -> low Ca/high PTH probably largely causative of problems -continue to replace aggressively -Xgeva stopped -Supplement D and calcium -PTH trending down -Anticipate supplementation to "stick" better soon Otherwise as above Subjective Patient feels well this morning, having no abdominal pain/cramps, tolerating meals well with feeling of improved appetite. Review of Systems Review of Systems: All systems reviewed & are unremarkable except as noted in Subjective Physical Exam Constitutional: WD/WN, vitals as above Eyes: PERRL, conjunctivae normal, anicteric sclerae Respiratory: normal respiratory effort; no respiratory distress and no labored breathing Cardiovascular: Vessels: normal peripheral pulses; no JVD Gastrointestinal (Abdomen): normal bowel sounds, soft, nontender, no hepatosplenomegaly Skin: no rashes, warm and dry Psychiatric: Orientation: alert and oriented x 3 Results & Data Results & Data ([facility]) Vital Signs (Past 12 Hours) Vital Signs Temp Pulse Pulse Resp BP Pulse Ox 09/25/20 07:54 36.9 C 73 18 148/82 H 93 09/25/20 07:15 85 09/25/20 04:02 36.6 C 76 20 165/90 H 95 09/24/20 23:21 78 09/24/20 23:08 36.8 C 74 17 156/84 H 92 Laboratory Results 09/25/20 09/25/20 09/25/20 Range/Units 14:40 07:19 07:19 Sodium 136 135 L (136-145) mmol/L Potassium 3.7 D 2.7 L (3.5-5.1) mmol/L Chloride 99 98 (98-107) mmol/L Carbon Dioxide 31 31 (21-32) mmol/L Anion Gap 6.0 7.0 (3-11) BUN 11 8 (7-18) mg/dl Creatinine 0.48 L 0.35 L (0.6-1.4) mg/dl Est Cr Clr Drug Dosing 121.4 166.5 ml/min Est GFR ( Amer) 121.5 138.3 Est GFR (Non-Af Amer) 104.8 119.4 BUN/Creatinine Ratio 23.2 H 23.8 H (10-20) Glucose 135 H 132 H (70-99) mg/dl Calcium 7.4 L 7.4 L (8.5-10.1) mg/dl Phosphorus 2.8 1.9 L (2.5-4.9) mg/dl Albumin 2.4 L (3.4-5.0) gm/dl PTH Intact 297.4 H (18.4-80.1) pg/ml Resident Activity Tracking Resident Involvement: Resident Care Provided Care Provided: Adult Hospital Medicine
--- NOTE | 2020-09-25 10:37 | Nephrology Progress Note ---
Date of Service September 25, 2020 Assessment & Plan (1) Hypocalcemia: With secondary hyperparathyroidism associated with Xgeva. Ergocalciferol 80310 units provided 09/23. D3 2000 units daily and calcitriol 0.25 mcg daily. Additional IV calcium gluconate provided this AM. Oral Calcium carbonate TID started, careful to avoid giving the medication with PO4 supplements or meals. Xgeva held for now but if considering restarting in the future, I would encourage aggressive calcium and vitamin D supplementation. (2) Hypophosphatemia: Component of renal wasting related to secondary hyperparathyroidism. Aggressive calcium and vitamin D replacement started as stated above. Malnutrition certainly contributing. Remains on K Phos QID. Additional IV K phos to be provided this AM as well. Continue to monitor labs twice daily and replace as needed. (3) Acute hypokalemia: Associated with loop diuretic, decreased PO intake, and hypokalemia. Additional IV replacement ordered. Remains on PO QID. Recheck this afternoon. Mg acceptable. (4) Acute hyponatremia: Chronic, mild. Asymptomatic. Related to hypokalemia. Will monitor. Admission and Anticipated Discharge Date Admission Date: September 16, 2020 Subjective No acute events overnight. Jose Daniel feels well this AM. Appetite fair. Sinus rhythm on tele. Review of Systems Review of Systems: All systems reviewed & are unremarkable except as noted in HPI & below Physical Exam Constitutional: + frail appearing; no acute distress Eyes: + anicteric sclerae ENMT: Mouth: + dry oral mucous membranes and + poor dentition Neck: normal visual inspection and trachea midline Respiratory: normal respiratory effort Auscultation: lungs clear to auscultation bilaterally Cardiovascular: Rate/Rhythm: regular rate Heart Sounds: normal S1 and normal S2 Vessels: no JVD Extremities: + edema Musculoskeletal: Extremities: no cyanosis and no clubbing Skin: normal turgor; no lesions Neurologic: Motor/Sensory: no tremor and no asterixis Psychiatric: Orientation: alert and oriented x 3 Results & Data ([facility]) Vital Signs (Past 12 Hours) Vital Signs Temp Pulse Pulse Resp BP Pulse Ox 09/25/20 07:54 36.9 C 73 18 148/82 H 93 09/25/20 07:15 85 09/25/20 04:02 36.6 C 76 20 165/90 H 95 09/24/20 23:21 78 09/24/20 23:08 36.8 C 74 17 156/84 H 92 Laboratory Results Laboratory Results - last 24 hr 09/24/20 09/25/20 09/25/20 15:05 07:19 07:19 Sodium 135 L 135 L Potassium 3.1 L D 2.7 L Chloride 98 98 Carbon Dioxide 32 31 Anion Gap 5.0 7.0 BUN 9 8 Creatinine 0.47 L 0.35 L Est Cr Clr Drug Dosing 124.2 166.5 Est GFR ( Amer) 122.5 138.3 Est GFR (Non-Af Amer) 105.7 119.4 BUN/Creatinine Ratio 18.8 23.8 H Glucose 151 H 132 H Calcium 7.1 L 7.4 L Phosphorus 1.9 L 1.9 L Magnesium 1.9 Total Bilirubin 0.7 AST 74 H ALT 56 Alkaline Phosphatase 134 H Total Protein 5.5 L Albumin 2.3 L Globulin 3.2 Albumin/Globulin Ratio 0.7 L PTH Intact 297.4 H PG Care Time/CCT Total # of Minutes Spent Total Time Spent with Patient: Total time spent is greater than 50% in coordination of care (as documented) at patient's floor/unit and/or counseling patient: Coding Level of Care Code 85175 Subseq Hosp Care Lvl 3 Diagnoses Hypocalcemia E83.51 Hypophosphatemia E83.39 Acute hypokalemia E87.6 Acute hyponatremia E87.1
[2020-09-25] MEDS: ENZALUTAMIDE 40 MG PO SCH (12:31)
[2020-09-25 15:26] LABS: Albumin Level 2.4 gm/dl (3.4-5.0); BUN Creatinine Ratio 23.2 (10-20); Calcium 7.4 mg/dl (8.5-10.1); Creatinine Clr Calc Pharmacy 121.4 ml/min; Est GFR (African American) 121.5; Est GFR (Non-African American) 104.8; Phosphorus 2.8 mg/dl (2.5-4.9); Potassium 3.7 mmol/L (3.5-5.1)
[2020-09-25] MEDS: POTASSIUM CHLORIDE / WTR 10 MEQ/100 ML PLCT IV SCH ×2 (15:36→16:39)
[2020-09-25] MEDS ORDERED: CALCIUM GLUCONATE 10% 1,000 MG in SODIUM CHLORIDE 0.9% 50 ML IV ONE (16:30)
[2020-09-25] MEDS: OXYBUTYNIN CHLORIDE 5 MG TAB PO PRN (18:17)
--- NOTE | 2020-09-25 19:24 | Billing Data ---
Date of Service September 25, 2020 Coding Level of Care Code 14365 Subseq Hosp Care Lvl 3
[2020-09-25] MEDS: PARoxetine HCL 20 MG TAB PO SCH (20:17)
[2020-09-25] MEDS: ENOXAPARIN INJ 40 MG/0.4 ML SYR SQ SCH (20:18)
[2020-09-26 08:04] LABS: BUN Creatinine Ratio 21.9 (10-20); Calcium 7.3 mg/dl (8.5-10.1); Est GFR (African American) 145.4; Est GFR (Non-African American) 125.5; Magnesium 1.7 mg/dl (1.8-2.4)
[2020-09-26] MEDS ORDERED: POTASSIUM PHOS 3 MMOL/1 ML INFUSION IV STA (08:41)
[2020-09-26] MEDS ORDERED: CALCIUM GLUCONATE 10% 1,000 MG in SODIUM CHLORIDE 0.9% 50 ML IV ONE (09:00)
[2020-09-26] MEDS: MAGNESIUM OXIDE 400 MG TAB PO SCH (09:03)
[2020-09-26] MEDS: PSYLLIUM 58.6% POWDER PACKET PO SCH (09:03)
[2020-09-26] MEDS: ASPIRIN 81 MG ECTAB PO SCH (09:03)
[2020-09-26] MEDS: METOPROLOL TARTRATE 25 MG TAB PO SCH (09:04)
[2020-09-26] MEDS: CALCITRIOL 0.25 MCG CAPSULE PO SCH (09:04)
[2020-09-26] MEDS: POT PHOSPHATE MONOBASIC W/ SOD TAB PO SCH ×4 (09:04→20:11)
[2020-09-26] MEDS: POTASSIUM CHLORIDE CRTAB 20 MEQ TABCR PO SCH ×4 (09:04→20:11)
[2020-09-26] MEDS: OXYBUTYNIN CHLORIDE 5 MG TAB PO PRN ×2 (09:04→20:10)
[2020-09-26] MEDS: CHOLECALCIFEROL 1,000 UNITS 25 MCG TAB PO SCH (09:04)
[2020-09-26] MEDS: ATORVASTATIN 40 MG TAB PO SCH (09:05)
[2020-09-26] MEDS: PANTOprazole 40 MG TAB PO SCH (09:05)
[2020-09-26] MEDS: predniSONE 5 MG TAB PO SCH (09:05)
[2020-09-26] MEDS: CALCIUM CARBONATE 500 MG CHEWABLE TAB PO SCH ×3 (09:07→20:10)
[2020-09-26] MEDS: amLODIPine BESYLATE 5 MG TAB PO SCH (09:09)
[2020-09-26 09:15] LABS: Potassium 2.6 mmol/L (3.5-5.1)
[2020-09-26] MEDS: MAGNESIUM SULFATE / D5W 1 GM/100 ML BAG IV SCH ×2 (09:22→11:27)
[2020-09-26] MEDS ORDERED: POTASSIUM PHOSPHATE 30 MMOL in SODIUM CHLORIDE 0.9% 500 ML IV ONE (09:30)
--- NOTE | 2020-09-26 10:07 | Nephrology Progress Note ---
Date of Service September 26, 2020 Assessment & Plan (1) Hypocalcemia: With secondary hyperparathyroidism associated with Xgeva. Ergocalciferol 20941 units weekly. D3 2000 units daily and calcitriol 0.5 mcg daily. Additional IV calcium gluconate x 1 gram provided this AM. Oral Calcium carbonate TID started, careful to avoid giving the medication with PO4 supplements or meals. (2) Hypophosphatemia: Component of renal wasting related to secondary hyperparathyroidism. Aggressive calcium and vitamin D replacement started as stated above. Malnutrition certainly contributing. Remains on K Phos QID. Additional IV K phos 30 mmol to be provided this AM as well. Continue to monitor labs twice daily and replace as needed. (3) Acute hypokalemia: Associated with loop diuretic, decreased PO intake, and hypokalemia. Additional IV replacement ordered. Remains on PO QID. Recheck this afternoon. MgSO4 provided this AM. (4) Acute hyponatremia: Chronic, mild. Asymptomatic. Related to hypokalemia. Will monitor. Admission and Anticipated Discharge Date Admission Date: September 16, 2020 Subjective No acute events overnight. Appetite remains poor. Jose Daniel continues to report feeling weak but no other concerns. Review of Systems Review of Systems: All systems reviewed & are unremarkable except as noted in HPI & below Physical Exam Constitutional: + frail appearing; no acute distress Eyes: + anicteric sclerae ENMT: Mouth: + dry oral mucous membranes and + poor dentition Neck: normal visual inspection and trachea midline Respiratory: normal respiratory effort Auscultation: lungs clear to auscultation bilaterally Cardiovascular: Rate/Rhythm: regular rate Heart Sounds: normal S1 and normal S2 Extremities: no edema Musculoskeletal: Extremities: no cyanosis and no clubbing Skin: normal turgor; no lesions Neurologic: Motor/Sensory: no tremor and no asterixis Psychiatric: Orientation: alert and oriented x 3 Results & Data ([facility]) Vital Signs (Past 12 Hours) Vital Signs Temp Pulse Pulse Resp BP Pulse Ox 09/26/20 07:33 36.8 C 71 19 146/85 H 97 09/26/20 07:00 89 09/26/20 03:05 79 09/26/20 02:48 36.8 C 67 20 145/83 H 96 09/25/20 23:16 36.7 C 94 H 18 174/78 H 91 Laboratory Results Laboratory Results - last 24 hr 09/25/20 09/26/20 14:40 06:57 Sodium 136 134 L Potassium 3.7 D 2.6 L D Chloride 99 96 L Carbon Dioxide 31 31 Anion Gap 6.0 7.0 BUN 11 7 Creatinine 0.48 L 0.31 L Est Cr Clr Drug Dosing 121.4 188.0 Est GFR ( Amer) 121.5 145.4 Est GFR (Non-Af Amer) 104.8 125.5 BUN/Creatinine Ratio 23.2 H 21.9 H Glucose 135 H 120 H Calcium 7.4 L 7.3 L Phosphorus 2.8 2.0 L Magnesium 1.7 L Albumin 2.4 L PG Care Time/CCT Total # of Minutes Spent Total Time Spent with Patient: Total time spent is greater than 50% in coordination of care (as documented) at patient's floor/unit and/or counseling patient: Coding Level of Care Code 56188 Subseq Hosp Care Lvl 3 Diagnoses Hypocalcemia E83.51 Hypophosphatemia E83.39 Acute hypokalemia E87.6 Acute hyponatremia E87.1
[2020-09-26] MEDS: DOCUSATE SODIUM 100 MG CAP PO SCH (10:17)
--- NOTE | 2020-09-26 12:15 | Hospitalist Progress Note ---
Date of Service September 26, 2020 Assessment & Plan (1) Hypocalcemia: Jose Daniel France is a 80y/o M with PMH significant for HTN, dyslipidemia, prostate cancer, and depression. Acute Hypokalemia/hypophosphatemia: -Severe and recurrent/persistent hypokalemia, along with hypophosphatemia -K and Phos appear to be trending in the right direction as we get farther out from last Xygeva dose -continue to monitor daily and replace with KCl PO QID, and KPhos QID -Nephrology/oncology consulted: Xygeva and lasix along with malnutrition likely playing a role in his continued depleted electrolytes, holding going forward would be appropriate -Additional IV 30 mmol KPhos today and IV 1g MgSO4 Hypocalcemia -With secondary hyperparathyroidism associated with Xgeva -D3 2000 units daily, Ergocalciferol 5000 units weekly, and calcitriol 0.5 mcg daily -Oral Calcium carbonate TID started -Additional IV 1g Calcium Gluconate today Prostate cancer: -Patient 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 As above as it relates to his Xgeva Dyslipidemia: -Continues on atorvastatin Hypertension: -Continues on metoprolol for secondary risk reduction Constipation: -patient has not had bowel movement in multiple days -concerned that medications to relieve constipation would exacerbate electrolyte depletion -as patient is not symptomatic will hold off at this point in time, reconsideration if worsening Diet: Low sodium diet CODE STATUS: Full Code DVT PPx: Lovenox SQ Dispo: Remains on Med Tele. Plan remains for patient to be discharged to [facility] once medically stable Admission and Anticipated Discharge Date Admission Date: September 16, 2020 Supervising Physician Co-Signing Physician Notes I personally examined the patient and verified all townsend points of history and exam, discussed case, and agree with decision making with Dr Olivarez Whenever I see him he looks uncomfortable. He notes he is not in pain now, but was earlier whenever he tried to get up. He noted a vague pain in motion and across his lower abdomen and both hips. He looks uncomfortable but denies pain anywhere. vitals noted nad heent nc at mmm cardio regular no rubs murmurs or gallops. Lungs are clear to auscultation bilaterally no rales rhonchi wheezes good effort. Abdomen is soft nondistended nontender no masses organomegaly. Extremities show no sinus clubbing or edema, no calf tenderness. Musculoskeletal exam yields no significant pain or restriction with range of motion at his hips with flexion extension or internal rotation. Interestingly at every point of physical exam outside of listening to heart and lungs he grimaces or even groans and whenever I immediately asked him if I am causing any pain he says no he is fine. Later revisited and he is sleeping comfortably and does not appear to be in distress. persistent/refractory hypokalemia/hypophosphatemia - ?malnutrition and depletion from lasix vs from Xgeva -- probably elements of all of above, but Xgeva -> low Ca/high PTH probably largely causative of problems -continue to replace aggressivelyhis numbers are starting to show improvement (his later in the day numbers even appear towards normal) so we will reduce supplementation some, so as to not overcorrect. -Xgeva stopped -Continue to supplement D and calcium -PTH trended down -Numbers suggesting this is starting to take effect Otherwise as above, anticipate rehab or SNF after discharge Subjective Still with poor PO intake, but improving. Still no BM. No other additional concerns or complaints. Additional IV replacement again today. Review of Systems Review of Systems: All systems reviewed & are unremarkable except as noted in HPI & below Physical Exam Constitutional: + frail appearing Eyes: PERRL, conjunctivae normal, anicteric sclerae ENMT: external ear and nose normal, oropharynx normal Respiratory: normal respiratory effort, lungs clear to auscultation Cardiovascular: RRR, no murmur, no edema Gastrointestinal (Abdomen): normal bowel sounds, soft, nontender, no h epatosplenomegaly Skin: no rashes, warm and dry Psychiatric: A+Ox3, euthymic affect Results & Data Results & Data ([facility]) Vital Signs (Past 12 Hours) Vital Signs Temp Pulse Pulse Resp BP Pulse Ox 09/26/20 12:01 36.4 C L 75 19 145/81 H 94 09/26/20 07:33 36.8 C 71 19 146/85 H 97 09/26/20 07:00 89 09/26/20 03:05 79 09/26/20 02:48 36.8 C 67 20 145/83 H 96 Laboratory Results Laboratory Results - last 24 hr 09/25/20 09/26/20 14:40 06:57 Sodium 136 134 L Potassium 3.7 D 2.6 L D Chloride 99 96 L Carbon Dioxide 31 31 Anion Gap 6.0 7.0 BUN 11 7 Creatinine 0.48 L 0.31 L Est Cr Clr Drug Dosing 121.4 188.0 Est GFR ( Amer) 121.5 145.4 Est GFR (Non-Af Amer) 104.8 125.5 BUN/Creatinine Ratio 23.2 H 21.9 H Glucose 135 H 120 H Calcium 7.4 L 7.3 L Phosphorus 2.8 2.0 L Magnesium 1.7 L Albumin 2.4 L Medications Administered Current Inpatient Medications Acetaminophen (Acetaminophen 325 Mg Tab) 650 mg PO Q4H PRN PRN Reason: Pain or Fever Stop: 10/16/20 19:38 Al Hydrox/Mg Hydrox/Simethicone (Aluminum/Magnesium Susp 30 Ml Udc) 15 ml PO Q4H PRN PRN Reason: Dyspepsia Stop: 10/16/20 19:38 Amlodipine Besylate (Amlodipine Besylate 5 Mg Tab) 2.5 mg PO DAILY [facility] Stop: 10/17/20 08:59 Last Admin: 09/26/20 09:09 Dose: 2.5 mg Documented by: Aspirin (Aspirin 81 Mg Ectab) 81 mg PO DAILY [facility] Stop: 10/17/20 08:59 Last Admin: 09/26/20 09:03 Dose: 81 mg Documented by: Atorvastatin Calcium (Atorvastatin 40 Mg Tab) 40 mg PO QAM [facility] Stop: 10/17/20 08:59 Last Admin: 09/26/20 09:05 Dose: 40 mg Documented by: Calcitriol (Calcitriol 0.25 Mcg Capsule) 0.5 mcg PO QAM [facility] Stop: 10/26/20 08:59 Last Admin: 09/26/20 09:04 Dose: 0.5 mcg Documented by: Calcium Carbonate (Calcium Carbonate 500 Mg Chewable Tab) 500 mg PO TID [facility] Stop: 10/24/20 20:59 Last Admin: 09/26/20 09:07 Dose: Not Given Documented by: Docusate Sodium (Docusate Sodium 100 Mg Cap) 300 mg PO DAILY [facility] Stop: 10/17/20 08:59 Last Admin: 09/26/20 10:17 Dose: 300 mg Documented by: Dronabinol (Dronabinol 2.5 Mg Cap) 5 mg PO DAILY [facility] Stop: 10/22/20 11:14 Last Admin: 09/26/20 10:17 Dose: 5 mg Documented by: Enoxaparin Sodium (Enoxaparin Inj 40 Mg/0.4 Ml Syr) 40 mg SQ Q24H [facility] Stop: 10/16/20 20:59 Last Admin: 09/25/20 20:18 Dose: 40 mg Documented by: Enzalutamide (Pt Own Med - Enzalutamide 40 Mg Capsule) 4 ea PO DAILY@1300 [facility] Stop: 10/19/20 12:59 Last Admin: 09/25/20 12:31 Dose: 4 ea Documented by: Ergocalciferol (Ergocalciferol 50,000 Units 1250 Mcg Cap) 50,000 units PO We@0900 [facility] Stop: 10/24/20 08:59 Last Admin: 09/24/20 09:39 Dose: 50,000 units Documented by: Magnesium Sulfate/Dextrose (Magnesium Sulfate / D5w) 1 gm in 100 mls @ 50 mls/hr IV Q2H [facility] Stop: 09/26/20 12:59 Last Admin: 09/26/20 11:27 Dose: 50 mls/hr Documented by: Potassium Phosphate 30 mmol/ (Sodium Chloride) 510 mls @ 88 mls/hr IV ONE ONE Stop: 09/26/20 15:17 Last Admin: 09/26/20 09:21 Dose: 88 mls/hr Documented by: Magnesium Oxide (Magnesium Oxide 400 Mg Tab) 400 mg PO QAM [facility] Stop: 10/21/20 08:59 Last Admin: 09/26/20 09:03 Dose: 400 mg Documented by: Melatonin (Melatonin 3 Mg Tab) 3 mg PO HS PRN PRN Reason: Sleep Stop: 10/25/20 01:35 Metoprolol Tartrate (Metoprolol Tartrate 25 Mg Tab) 25 mg PO DAILY [facility] Stop: 10/17/20 08:59 Last Admin: 09/26/20 09:04 Dose: 25 mg Documented by: Oxybutynin Chloride (Oxybutynin Chloride 5 Mg Tab) 5 mg PO BID PRN PRN Reason: bladder spasms Stop: 10/16/20 19:38 Last Admin: 09/26/20 09:04 Dose: 5 mg Documented by: Pantoprazole Sodium (Pantoprazole 40 Mg Tab) 40 mg PO DAILY [facility]; Protocol Stop: 10/17/20 08:59 Last Admin: 09/26/20 09:05 Dose: 40 mg Documented by: Paroxetine HCl (Paroxetine Hcl 20 Mg Tab) 20 mg PO HS [facility] Stop: 10/16/20 20:59 Last Admin: 09/25/20 20:17 Dose: 20 mg Documented by: Potassium Chloride (Potassium Chloride Crtab 20 Meq Tabcr) 40 meq PO QID [facility] Stop: 10/24/20 08:59 Last Admin: 09/26/20 09:04 Dose: 40 meq Documented by: Potassium Phosphate (Pot Phosphate Monobasic W/ Sod Tab) 1 tab PO QID [facility] Stop: 10/21/20 08:59 Last Admin: 09/26/20 09:04 Dose: 1 tab Documented by: Prednisone (Prednisone 5 Mg Tab) 5 mg PO DAILY [facility] Stop: 10/17/20 08:59 Last Admin: 09/26/20 09:05 Dose: 5 mg Documented by: Psyllium Hydrophilic Mucilloid (Psyllium 58.6% Powder Packet) 1 pkt PO DAILY [facility] Stop: 10/17/20 08:59 Last Admin: 09/26/20 09:03 Dose: 1 pkt Documented by: Vitamin D (Cholecalciferol 1,000 Units 25 Mcg Tab) 2,000 units PO QAM [facility] Stop: 10/24/20 08:59 Last Admin: 09/26/20 09:04 Dose: 2,000 units Documented by: Resident Activity Tracking Resident Involvement: Resident Care Provided Care Provided: Adult Hospital Medicine
[2020-09-26] MEDS: ENZALUTAMIDE 40 MG PO SCH (13:06)
[2020-09-26 15:48] LABS: Albumin Level 2.4 gm/dl (3.4-5.0); BUN Creatinine Ratio 20.6 (10-20); Calcium 7.5 mg/dl (8.5-10.1); Creatinine Clr Calc Pharmacy 126.7 ml/min; Est GFR (African American) 123.6; Est GFR (Non-African American) 106.7; Phosphorus 3.1 mg/dl (2.5-4.9)
--- NOTE | 2020-09-26 19:24 | Billing Data ---
Date of Service September 26, 2020 Coding Level of Care Code 11380 Subseq Hosp Care Lvl 3
[2020-09-26] MEDS: ENOXAPARIN INJ 40 MG/0.4 ML SYR SQ SCH (20:12)
[2020-09-26] MEDS: PARoxetine HCL 20 MG TAB PO SCH (20:12)
[2020-09-27 07:30] LABS: BUN Creatinine Ratio 24.9 (10-20); Calcium 7.6 mg/dl (8.5-10.1); Creatinine Clr Calc Pharmacy 157.5 ml/min; Est GFR (African American) 135.2; Est GFR (Non-African American) 116.6; Magnesium 1.8 mg/dl (1.8-2.4); Potassium 3.2 mmol/L (3.5-5.1)
[2020-09-27] MEDS: CALCIUM CARBONATE 500 MG CHEWABLE TAB PO SCH (07:55)
[2020-09-27] MEDS: POT PHOSPHATE MONOBASIC W/ SOD TAB PO SCH ×5 (07:55→19:56)
[2020-09-27] MEDS: ATORVASTATIN 40 MG TAB PO SCH (07:55)
[2020-09-27] MEDS: PANTOprazole 40 MG TAB PO SCH (07:56)
[2020-09-27] MEDS: amLODIPine BESYLATE 5 MG TAB PO SCH (07:56)
[2020-09-27] MEDS: POTASSIUM CHLORIDE CRTAB 20 MEQ TABCR PO SCH (07:56)
[2020-09-27] MEDS: METOPROLOL TARTRATE 25 MG TAB PO SCH (07:57)
[2020-09-27] MEDS: CHOLECALCIFEROL 1,000 UNITS 25 MCG TAB PO SCH (07:57)
[2020-09-27] MEDS: predniSONE 5 MG TAB PO SCH (07:58)
[2020-09-27] MEDS: MAGNESIUM OXIDE 400 MG TAB PO SCH (07:58)
[2020-09-27] MEDS: CALCITRIOL 0.25 MCG CAPSULE PO SCH ×2 (07:58→12:27)
[2020-09-27] MEDS: PSYLLIUM 58.6% POWDER PACKET PO SCH (07:59)
[2020-09-27] MEDS: ASPIRIN 81 MG ECTAB PO SCH (08:01)
[2020-09-27] MEDS: DOCUSATE SODIUM 100 MG CAP PO SCH (08:06)
--- NOTE | 2020-09-27 09:06 | Nephrology Progress Note ---
Date of Service September 27, 2020 Assessment & Plan (1) Hypocalcemia: * Likely secondary hyperparathyroidism associated with Xgeva therapy * Serum Ca is improved. Corrected Ca is 8.2 this am * Will stop ergocalciferol, CaCO3 and vitamin D3 in favor of Calcitriol 1.5 mcg po daily * Monitor Ca and albumin (2) Hypokalemia: * Stop oral KCl and increase K-phos to QID * Will provide 20 mEq KCl IV x1 this am (3) Hypophosphatemia: * Component of renal wasting related to secondary hyperparathyroidism * Will increase K Phos to QID and stop oral KCl supplement * Advise monitoring labs twice daily and replace K and PO4 as needed (4) Prostate cancer: * Metastatic prostate CA. Has received Xgeva therapy Admission and Anticipated Discharge Date Admission Date: September 16, 2020 Subjective Mr. France was seen & examined in his hospital room this morning. He reports that he is tolerating his diet. He denies N/V/D. He voices no new medical concerns. Review of Systems Constitutional: + fatigue and + weakness Eyes: no problem reported Ear, Nose, Mouth, Throat: + dry mouth; no sore throat and no dysphagia Respiratory: no dyspnea Cardiovascular: no chest pain Gastrointestinal: no early satiety and no nausea Genitourinary: no problem reported Integumentary: + dry skin; no rash Physical Exam Constitutional: + frail appearing; not in distress Eyes: PERRL, conjunctivae normal, anicteric sclerae ENMT: external ear and nose normal, oropharynx normal Neck: trachea midline, no thyromegaly Respiratory: normal respiratory effort, lungs clear to auscultation Cardiovascular: RRR, no murmur, no edema Gastrointestinal (Abdomen): normal bowel sounds, soft, nontender, no hepatosplenomegaly Musculoskeletal: Extremities: no cyanosis Neurologic: awake; not confused Results & Data ([facility]) Vital Signs (Past 12 Hours) Vital Signs Temp Pulse Pulse Resp BP BP Pulse Ox 09/27/20 07:41 37.1 C 91 H 19 150/85 H 93 09/27/20 07:12 86 09/27/20 04:06 36.7 C 96 H 21 159/68 H 95 09/26/20 23:45 88 09/26/20 23:00 36.9 C 87 18 156/82 H 94 Laboratory Tests 09/23/20 09/25/20 09/26/20 13:22 07:19 14:45 Sodium Potassium Chloride Carbon Dioxide BUN Creatinine Glucose Calcium Phosphorus Magnesium Albumin 2.4 L 25-OH Vitamin D Total 20.4 L PTH Intact 297.4 H 09/27/20 06:36 Sodium 134 L Potassium 3.2 L D Chloride 98 Carbon Dioxide 31 BUN 9 Creatinine 0.37 L Glucose 108 H Calcium 7.6 L Phosphorus 2.0 L D Magnesium 1.8 Albumin 25-OH Vitamin D Total PTH Intact PG Care Time/CCT Total # of Minutes Spent Total Time Spent with Patient: Total time spent is greater than 50% in coordination of care (as documented) at patient's floor/unit and/or counseling patient: Coding Level of Care Code 39076 Subseq Hosp Care Lvl 3 Diagnoses Hypocalcemia E83.51 Hypokalemia E87.6 Hypophosphatemia E83.39 Prostate cancer C61
--- NOTE | 2020-09-27 12:27 | Hospitalist Progress Note ---
Date of Service September 27, 2020 Assessment & Plan (1) Hypocalcemia: Jose Daniel France is a 80y/o M with PMH significant for HTN, dyslipidemia, prostate cancer, and depression. Acute Hypokalemia/hypophosphatemia: -Severe and recurrent/persistent hypokalemia, along with hypophosphatemia -K and Phos appear to be trending in the right direction as we get farther out from last Xygeva dose -continue to monitor daily and replace with KPhos QID. P.o. KCl stopped per nephro recs -Nephrology/oncology consulted: Xygeva and lasix along with malnutrition likely playing a role in his continued depleted electrolytes, holding going forward would be appropriate -Additional IV 20 mEq KCl today. 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 As above as it relates to his Xgeva Dyslipidemia: -Continues on atorvastatin Hypertension: -Continues on metoprolol for secondary risk reduction Constipation: -patient has not had bowel movement in multiple days -concerned that medications to relieve constipation would exacerbate electrolyte depletion -as patient is not symptomatic will hold off at this point in time, reconsideration if worsening Diet: Low sodium diet CODE STATUS: Full Code DVT PPx: Lovenox SQ Dispo: Remains on Med Tele. Plan remains for patient to be discharged to [facility], referral was made pending insurance auth Admission and Anticipated Discharge Date Admission Date: September 16, 2020 Supervising Physician Co-Signing Physician Notes I personally examined the patient and verified all townsend points of history and exam, discussed case, and agree with decision making with Dr Olivarez Feeling much better. no new problems vitals noted nad heent nc at mucous membranes moist. Breathing unlabored no accessory muscle use good effort. Skin shows no rashes no pallor or icterus. Neuro shows no focal deficits. persistent/refractory hypokalemia/hypophosphatemia - ?malnutrition and depletion from lasix vs from Xgeva -- probably elements of all of above, but Xgeva -> low Ca/high PTH probably largely causative of problems -Numbers are showing more steady improvement, continue to correct and replace, but start to back down on how aggressively -Xgeva stopped -Continue to supplement D and calcium -PTH trended down -Appears to be starting to show good steady improvement Otherwise as above, anticipate rehab or SNF after discharge ongoing PT/OT eval and treat Subjective Patient looks notably more perked up today, Noting that he feels better overall and whole body feels better. Patient does not appear as uncomfortable on exam as he did yesterday. Tolerating p.o. intake. No nausea vomiting. Patient with no other acute concerns or complaints. Review of Systems Review of Systems: All systems reviewed & are unremarkable except as noted in HPI & below Physical Exam Constitutional: + frail appearing Eyes: PERRL, conjunctivae normal, anicteric sclerae ENMT: external ear and nose normal, oropharynx normal Respiratory: normal respiratory effort, lungs clear to auscultation Cardiovascular: RRR, no murmur, no edema Gastrointestinal (Abdomen): normal bowel sounds, soft, nontender, no hepatosplenomegaly Skin: no rashes, warm and dry Psychiatric: A+Ox3, euthymic affect Results & Data Results & Data ([facility]) Vital Signs (Past 12 Hours) Vital Signs Temp Pulse Pulse Resp BP Pulse Ox 09/27/20 11:06 37.2 C 69 18 145/79 H 93 09/27/20 07:41 37.1 C 91 H 19 150/85 H 93 09/27/20 07:12 86 09/27/20 04:06 36.7 C 96 H 21 159/68 H 95 Laboratory Results Laboratory Results - last 24 hr 09/26/20 09/27/20 14:45 06:36 Sodium 131 L 134 L Potassium 4.0 D 3.2 L D Chloride 96 L 98 Carbon Dioxide 30 31 Anion Gap 5.0 4.0 BUN 9 9 Creatinine 0.46 L 0.37 L Est Cr Clr Drug Dosing 126.7 157.5 Est GFR ( Amer) 123.6 135.2 Est GFR (Non-Af Amer) 106.7 116.6 BUN/Creatinine Ratio 20.6 H 24.9 H Glucose 126 H 108 H Calcium 7.5 L 7.6 L Phosphorus 3.1 D 2.0 L D Magnesium 1.8 Albumin 2.4 L Medications Administered Current Inpatient Medications Acetaminophen (Acetaminophen 325 Mg Tab) 650 mg PO Q4H PRN PRN Reason: Pain or Fever Stop: 10/16/20 19:38 Amlodipine Besylate (Amlodipine Besylate 5 Mg Tab) 2.5 mg PO DAILY [facility] Stop: 10/17/20 08:59 Last Admin: 09/27/20 07:56 Dose: 2.5 mg Documented by: Aspirin (Aspirin 81 Mg Ectab) 81 mg PO DAILY [facility] Stop: 10/17/20 08:59 Last Admin: 09/27/20 08:01 Dose: 81 mg Documented by: Atorvastatin Calcium (Atorvastatin 40 Mg Tab) 40 mg PO QAM [facility] Stop: 10/17/20 08:59 Last Admin: 09/27/20 07:55 Dose: 40 mg Documented by: Calcitriol (Calcitriol 0.25 Mcg Capsule) 1.5 mcg PO QAM [facility] Stop: 10/27/20 12:29 Docusate Sodium (Docusate Sodium 100 Mg Cap) 300 mg PO DAILY [facility] Stop: 10/17/20 08:59 Last Admin: 09/27/20 08:06 Dose: 300 mg Documented by: Dronabinol (Dronabinol 2.5 Mg Cap) 5 mg PO DAILY [facility] Stop: 10/22/20 11:14 Last Admin: 09/27/20 08:06 Dose: 5 mg Documented by: Enoxaparin Sodium (Enoxaparin Inj 40 Mg/0.4 Ml Syr) 40 mg SQ Q24H [facility] Stop: 10/16/20 20:59 Last Admin: 09/26/20 20:12 Dose: 40 mg Documented by: Enzalutamide (Pt Own Med - Enzalutamide 40 Mg Capsule) 4 ea PO DAILY@1300 [facility] Stop: 10/19/20 12:59 Last Admin: 09/26/20 13:06 Dose: 4 ea Documented by: Potassium Chloride (K Lazaro / Wtr) 10 meq in 100 mls @ 50 mls/hr IV Q1H [facility] Stop: 09/27/20 14:29 Magnesium Oxide (Magnesium Oxide 400 Mg Tab) 400 mg PO QAM [facility] Stop: 10/21/20 08:59 Last Admin: 09/27/20 07:58 Dose: 400 mg Documented by: Melatonin (Melatonin 3 Mg Tab) 3 mg PO HS PRN PRN Reason: Sleep Stop: 10/25/20 01:35 Metoprolol Tartrate (Metoprolol Tartrate 25 Mg Tab) 25 mg PO DAILY [facility] Stop: 10/17/20 08:59 Last Admin: 09/27/20 07:57 Dose: 25 mg Documented by: Oxybutynin Chloride (Oxybutynin Chloride 5 Mg Tab) 5 mg PO BID PRN PRN Reason: bladder spasms Stop: 10/16/20 19:38 Last Admin: 09/26/20 20:10 Dose: 5 mg Documented by: Pantoprazole Sodium (Pantoprazole 40 Mg Tab) 40 mg PO DAILY [facility]; Protocol Stop: 10/17/20 08:59 Last Admin: 09/27/20 07:56 Dose: 40 mg Documented by: Paroxetine HCl (Paroxetine Hcl 20 Mg Tab) 20 mg PO [facility] Stop: 10/16/20 20:59 Last Admin: 09/26/20 20:12 Dose: 20 mg Documented by: Potassium Phosphate (Pot Phosphate Monobasic W/ Sod Tab) 1 tab PO QID [facility] Stop: 10/27/20 11:44 Prednisone (Prednisone 5 Mg Tab) 5 mg PO DAILY [facility] Stop: 10/17/20 08:59 Last Admin: 09/27/20 07:58 Dose: 5 mg Documented by: Psyllium Hydrophilic Mucilloid (Psyllium 58.6% Powder Packet) 1 pkt PO DAILY [facility] Stop: 10/17/20 08:59 Last Admin: 09/27/20 07:59 Dose: 1 pkt Documented by: Resident Activity Tracking Resident Involvement: Resident Care Provided Care Provided: Adult Hospital Medicine
[2020-09-27] MEDS: ENZALUTAMIDE 40 MG PO SCH (12:34)
[2020-09-27] MEDS: POTASSIUM CHLORIDE / WTR 10 MEQ/100 ML PLCT IV SCH ×2 (12:34→14:37)
--- NOTE | 2020-09-27 14:48 | Billing Data ---
Date of Service September 27, 2020 Coding Level of Care Code 48355 Subseq Hosp Care Lvl 3
[2020-09-27 15:14] LABS: BUN Creatinine Ratio 23.6 (10-20); Calcium 7.5 mg/dl (8.5-10.1); Creatinine Clr Calc Pharmacy 116.6 ml/min; Est GFR (African American) 119.5; Est GFR (Non-African American) 103.1; Potassium 3.7 mmol/L (3.5-5.1)
[2020-09-27 16:18] LABS: Phosphorus 1.8 mg/dl (2.5-4.9)
[2020-09-27] MEDS: ENOXAPARIN INJ 40 MG/0.4 ML SYR SQ SCH (19:56)
[2020-09-27] MEDS: PARoxetine HCL 20 MG TAB PO SCH (19:56)
[2020-09-28 06:50] LABS: Basophils # (auto) 0.01 K/uL (0-0.2); Basophils % (auto) 0.1 %; Hematocrit (blood only) 39.7 % (42-52); Hemoglobin 13.6 g/dL (14.0-18.0); Immature Granulocytes # (auto) 0.12 K/uL (0.00-0.02); Lymphocytes # (auto) 0.94 K/uL (1.2-3.4); Lymphocytes % (auto) 7.5 %; Mean Corpuscular Hemoglobin 29.8 pg (25-34); Mean Corpuscular Hgb Conc 34.3 g/dL (32-36); Mean Corpuscular Volume 87.1 fL (80-100); Mean Platelet Volume 9.6 fL (7.4-10.4); Monocytes # (auto) 0.78 K/uL (0.11-0.59); Monocytes % (auto) 6.2 %; Neutrophils # (auto) 10.71 K/uL (1.4-6.5); Neutrophils % (auto) 85.2 %; Platelet Count 197 K/uL (130-400); RDW Coefficient of Variation 13.3 % (11.5-14.5); RDW Standard Deviation 42.5 fL (36.4-46.3); Red Blood Count 4.56 M/uL (4.7-6.1); White Blood Count 12.56 K/uL (4.8-10.8)
[2020-09-28 07:25] LABS: BUN Creatinine Ratio 28.2 (10-20); Calcium 7.3 mg/dl (8.5-10.1); Creatinine Clr Calc Pharmacy 160.3 ml/min; Est GFR (African American) 135.2; Est GFR (Non-African American) 116.6; Magnesium 1.8 mg/dl (1.8-2.4); Phosphorus 2.1 mg/dl (2.5-4.9); Potassium 2.6 mmol/L (3.5-5.1)
[2020-09-28] MEDS: DOCUSATE SODIUM 100 MG CAP PO SCH (09:01)
[2020-09-28] MEDS: METOPROLOL TARTRATE 25 MG TAB PO SCH (09:01)
[2020-09-28] MEDS: ASPIRIN 81 MG ECTAB PO SCH (09:01)
[2020-09-28] MEDS: CALCITRIOL 0.25 MCG CAPSULE PO SCH (09:01)
[2020-09-28] MEDS: PANTOprazole 40 MG TAB PO SCH (09:02)
[2020-09-28] MEDS: MAGNESIUM OXIDE 400 MG TAB PO SCH (09:02)
[2020-09-28] MEDS: predniSONE 5 MG TAB PO SCH (09:02)
[2020-09-28] MEDS: amLODIPine BESYLATE 5 MG TAB PO SCH (09:02)
[2020-09-28] MEDS: PSYLLIUM 58.6% POWDER PACKET PO SCH (09:03)
[2020-09-28] MEDS: POT PHOSPHATE MONOBASIC W/ SOD TAB PO SCH ×4 (09:03→21:19)
[2020-09-28] MEDS: ATORVASTATIN 40 MG TAB PO SCH (09:03)
--- NOTE | 2020-09-28 09:47 | Nephrology Progress Note ---
Date of Service September 28, 2020 Assessment & Plan (1) Hypocalcemia: * Likely secondary hyperparathyroidism associated with Xgeva therapy * Serum Ca is improved. Corrected Ca is 8.9 this am * Will stop ergocalciferol, CaCO3 and vitamin D3 in favor of Calcitriol 1.5 mcg po daily * Monitor Ca and albumin (2) Hypokalemia: * Will provide 40 mEq KCl IV this am (3) Hypophosphatemia: * Component of renal wasting related to secondary hyperparathyroidism * Serum PO4 is trending up * Continue K Phos QID * Advise monitoring labs twice daily and replace K and PO4 as needed (4) Prostate cancer: * Metastatic prostate CA. Has received Xgeva therapy Admission and Anticipated Discharge Date Admission Date: September 16, 2020 Subjective Mr. France was seen & examined in his hospital room this morning. He is tolerating his diet and voices no new medical concerns. Review of Systems Constitutional: + weakness; no fever Eyes: no problem reported Ear, Nose, Mouth, Throat: no problem reported Respiratory: no cough and no dyspnea Cardiovascular: no chest pain, no palpitations and no edema Gastrointestinal: no abdominal pain Musculoskeletal: no back pain Integumentary: no rash Neurologic: no falls, no dizziness and no confusion Physical Exam Constitutional: + frail appearing; not in distress Eyes: PERRL, conjunctivae normal, anicteric sclerae ENMT: external ear and nose normal, oropharynx normal Neck: trachea midline, no thyromegaly Respiratory: normal respiratory effort, lungs clear to auscultation Cardiovascular: RRR, no murmur, no edema Gastrointestinal (Abdomen): normal bowel sounds, soft, nontender, no hepatosplenomegaly Musculoskeletal: Extremities: no cyanosis Neurologic: awake; not confused Results & Data ([facility]) Vital Signs (Past 12 Hours) Vital Signs Temp Pulse Pulse Resp BP Pulse Ox 09/28/20 08:12 36.4 C L 74 19 157/76 H 94 09/28/20 07:35 70 09/28/20 04:00 36.9 C 71 18 132/82 94 09/28/20 00:00 73 09/27/20 23:20 37.1 C 81 18 148/84 H 92 Laboratory Tests 09/26/20 09/28/20 09/28/20 14:45 06:17 06:17 WBC 12.56 H Hgb 13.6 L Hct 39.7 L Plt Count 197 Sodium 134 L Potassium 2.6 L D Chloride 97 L Carbon Dioxide 32 BUN 11 Creatinine 0.37 L Glucose 112 H Calcium 7.3 L Phosphorus 2.1 L Magnesium 1.8 Albumin 2.4 L PG Care Time/CCT Total # of Minutes Spent Total Time Spent with Patient: Total time spent is greater than 50% in coordination of care (as documented) at patient's floor/unit and/or counseling patient: Coding Level of Care Code 59541 Subseq Hosp Care Lvl 3 Diagnoses Hypocalcemia E83.51 Hypokalemia E87.6 Hypophosphatemia E83.39 Prostate cancer C61
[2020-09-28] MEDS: POTASSIUM CHLORIDE / WTR 10 MEQ/100 ML PLCT IV SCH ×4 (09:49→13:51)
[2020-09-28] MEDS: ENZALUTAMIDE 40 MG PO SCH (12:28)
--- NOTE | 2020-09-28 14:17 | Hospitalist Progress Note ---
Date of Service September 28, 2020 Assessment & Plan (1) Hypocalcemia: Jose Daniel France is a 80y/o M with PMH significant for HTN, dyslipidemia, prostate cancer, and depression. Acute Hypokalemia/hypophosphatemia: -Severe and recurrent/persistent hypokalemia, along with hypophosphatemia -K and Phos appear to be trending in the right direction as we get farther out from last Xygeva dose -continue to monitor daily and replace with KPhos QID. P.o. KCl stopped per nephro recs -Nephrology/oncology consulted: Xygeva and lasix along with malnutrition likely playing a role in his continued depleted electrolytes, holding going forward would be appropriate -Additional IV 40 mEq KCl today. We will continue monitoring labs twice daily and replete as necessary Hypocalcemia -With secondary hyperparathyroidism associated with Xgeva . 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 Holding as above as it relates to his Xgeva Dyslipidemia: -Continues on atorvastatin Hypertension: -Continues on metoprolol for secondary risk reduction -Added on a potassium sparing diuretic amiloride 2.5 mg Constipation: -concerned that medications to relieve constipation would exacerbate electrolyte depletion -as patient is not symptomatic will hold off at this point in time, reconsideration if worsening Diet: Low sodium diet CODE STATUS: Full Code DVT PPx: Lovenox SQ Dispo: Remains on [employer]. Plan remains for patient to be discharged to [facility], referral was made pending insurance auth Admission and Anticipated Discharge Date Admission Date: September 16, 2020 Supervising Physician Co-Signing Physician Notes Attending Attestation: Pt seen/examined, chart reviewed, care plan d/w resident Dillon Olivarez DO. I agree w/ the townsend components of his documentation. Patient states he simply feels tired/weak and realizes he needs rehab. No specific complaints of pain, dyspnea. Eating fair. VSS, no fever gen - looks tired, weak mouth - MMM heart - RRR, s1 s2 lungs - CTA b/l abd - soft NT ND BS+ ext - no edema, varicose veins potassium 2.6 Cr wnl Ca 7.3 A/P: Refractory hypokalemia despite PO/IV replacement - due to renal wasting? poor oral intake? compounded by low ca? Consider amiloride or aldactone. Cont IV/PO supplementation. Hypocalcemia, hypophosphatemia - appreciate nephrology assistance. Due to secondary hyperparathyroidism. Calcitriol. Serial labs. Dispo - rehab. Eliu Morales MD Subjective Patient looks more perked up today, Noting that he feels better overall and whole body feels better. Patient does not appear as uncomfortable on exam as he did yesterday. Tolerating p.o. intake. No nausea vomiting or diarrhea. Patient with no other acute concerns or complaints. Review of Systems Review of Systems: All systems reviewed & are unremarkable except as noted in HPI & below Physical Exam Constitutional: + frail appearing Eyes: PERRL, conjunctivae normal, anicteric sclerae ENMT: external ear and nose normal, oropharynx normal Respiratory: normal respiratory effort, lungs clear to auscultation Cardiovascular: RRR, no murmur, no edema Gastrointestinal (Abdomen): normal bowel sounds, soft, nontender, no hepatosplenomegaly Skin: no rashes, warm and dry Psychiatric: A+Ox3, euthymic affect Results & Data Results & Data ([facility]) Vital Signs (Past 12 Hours) Vital Signs Temp Pulse Pulse Resp BP Pulse Ox 09/28/20 12:10 36.8 C 18 125/78 96 09/28/20 08:12 36.4 C L 74 19 157/76 H 94 09/28/20 07:35 70 09/28/20 04:00 36.9 C 71 18 132/82 94 Resident Activity Tracking Resident Involvement: Resident Care Provided Care Provided: Adult Hospital Medicine
[2020-09-28 15:25] LABS: BUN Creatinine Ratio 28.7 (10-20); Calcium 7.4 mg/dl (8.5-10.1); Est GFR (African American) 120.5; Est GFR (Non-African American) 103.9; Phosphorus 1.9 mg/dl (2.5-4.9); Potassium 3.7 mmol/L (3.5-5.1)
[2020-09-28] MEDS: aMILoride HCL 5 MG TAB PO SCH (17:48)
[2020-09-28] MEDS: PARoxetine HCL 20 MG TAB PO SCH (21:18)
[2020-09-28] MEDS: ENOXAPARIN INJ 40 MG/0.4 ML SYR SQ SCH (21:18)
[2020-09-29 05:48] LABS: Hematocrit (blood only) 41.4 % (42-52); Hemoglobin 14.4 g/dL (14.0-18.0); Mean Corpuscular Hemoglobin 30.1 pg (25-34); Mean Corpuscular Hgb Conc 34.8 g/dL (32-36); Mean Corpuscular Volume 86.4 fL (80-100); Mean Platelet Volume 9.7 fL (7.4-10.4); Platelet Count 221 K/uL (130-400); RDW Coefficient of Variation 13.3 % (11.5-14.5); RDW Standard Deviation 42.1 fL (36.4-46.3); Red Blood Count 4.79 M/uL (4.7-6.1); White Blood Count 14.74 K/uL (4.8-10.8)
[2020-09-29 06:27] LABS: BUN Creatinine Ratio 35.4 (10-20); Calcium 7.8 mg/dl (8.5-10.1); Creatinine Clr Calc Pharmacy 146.1 ml/min; Est GFR (African American) 129.6; Est GFR (Non-African American) 111.8; Potassium 3.2 mmol/L (3.5-5.1)
[2020-09-29 06:28] LABS: Phosphorus 2.3 mg/dl (2.5-4.9)
[2020-09-29] MEDS: PANTOprazole 40 MG TAB PO SCH (08:55)
[2020-09-29] MEDS: ASPIRIN 81 MG ECTAB PO SCH (08:55)
[2020-09-29] MEDS: ATORVASTATIN 40 MG TAB PO SCH (08:55)
[2020-09-29] MEDS: POT PHOSPHATE MONOBASIC W/ SOD TAB PO SCH ×4 (08:55→20:57)
[2020-09-29] MEDS: CALCITRIOL 0.25 MCG CAPSULE PO SCH (08:55)
[2020-09-29] MEDS: predniSONE 5 MG TAB PO SCH (08:55)
[2020-09-29] MEDS: aMILoride HCL 5 MG TAB PO SCH (08:55)
[2020-09-29] MEDS: PSYLLIUM 58.6% POWDER PACKET PO SCH (08:56)
[2020-09-29] MEDS: METOPROLOL TARTRATE 25 MG TAB PO SCH (08:56)
[2020-09-29] MEDS: MAGNESIUM OXIDE 400 MG TAB PO SCH (08:56)
[2020-09-29] MEDS: amLODIPine BESYLATE 5 MG TAB PO SCH (08:57)
[2020-09-29] MEDS: DOCUSATE SODIUM 100 MG CAP PO SCH (09:01)
--- NOTE | 2020-09-29 09:10 | Nephrology Progress Note ---
Date of Service September 29, 2020 Assessment & Plan (1) Hypocalcemia: * Likely secondary hyperparathyroidism associated with Xgeva therapy * Serum Ca is improved. Corrected Ca is 8.4 this am * Continue Calcitriol 1.5 mcg po daily (2) Hypokalemia: * Will provide 40 mEq KCl IV this am * No further Nephrology evaluation indicated at this time. Defer further electrolyte supplementation and monitoring to primary service. Will sign off. Please call if further assistance is needed (3) Hypophosphatemia: * Component of renal wasting related to secondary hyperparathyroidism * Serum PO4 is trending up * Continue K Phos QID * Advise monitoring labs twice daily and replace K and PO4 as needed (4) Prostate cancer: * Metastatic prostate CA. Has received Xgeva therapy Admission and Anticipated Discharge Date Admission Date: September 16, 2020 Subjective Mr. France was seen & examined in his hospital room this morning. He is tolerating his diet and voices no new medical concerns. Review of Systems Constitutional: + weakness; no fever Eyes: no problem reported Ear, Nose, Mouth, Throat: no problem reported Respiratory: no cough and no dyspnea Cardiovascular: no chest pain, no palpitations and no edema Gastrointestinal: no abdominal pain Musculoskeletal: no back pain Integumentary: no rash Neurologic: no falls, no dizziness and no confusion Physical Exam Constitutional: + frail appearing; not in distress Eyes: PERRL, conjunctivae normal, anicteric sclerae ENMT: external ear and nose normal, oropharynx normal Neck: trachea midline, no thyromegaly Respiratory: normal respiratory effort, lungs clear to auscultation Cardiovascular: RRR, no murmur, no edema Gastrointestinal (Abdomen): normal bowel sounds, soft, nontender, no hepatosplenomegaly Musculoskeletal: Extremities: no cyanosis Neurologic: awake; not confused Results & Data ([facility]) Vital Signs (Past 12 Hours) Vital Signs Temp Pulse Pulse Resp BP Pulse Ox 09/29/20 08:54 90 122/79 09/29/20 07:26 36.8 C 75 18 134/88 93 09/29/20 07:00 87 09/29/20 03:22 36.9 C 89 18 142/88 H 94 09/29/20 00:11 73 09/28/20 22:40 36.9 C 78 18 148/89 H 95 Laboratory Tests 09/26/20 09/29/20 09/29/20 14:45 05:30 05:30 WBC 14.74 H Hgb 14.4 Hct 41.4 L Plt Count 221 Sodium 133 L Potassium 3.2 L Chloride 97 L Carbon Dioxide 32 BUN 14 Creatinine 0.41 L Glucose 126 H Calcium 7.8 L Phosphorus 2.3 L Magnesium 2.0 Albumin 2.4 L PG Care Time/CCT Total # of Minutes Spent Total Time Spent with Patient: Total time spent is greater than 50% in coordination of care (as documented) at patient's floor/unit and/or counseling patient: Coding Level of Care Code 94867 Subseq Hosp Care Lvl 3 Diagnoses Hypocalcemia E83.51 Hypokalemia E87.6 Hypophosphatemia E83.39 Prostate cancer C61
[2020-09-29] MEDS: POTASSIUM CHLORIDE / WTR 10 MEQ/100 ML PLCT IV SCH ×4 (09:49→13:04)
--- NOTE | 2020-09-29 11:00 | Billing Data ---
Date of Service September 28, 2020 Coding Level of Care Code 80914 Subseq Hosp Care Lvl 2
--- NOTE | 2020-09-29 12:14 | Hospitalist Progress Note ---
Date of Service September 29, 2020 Assessment & Plan (1) Hypocalcemia: Jose Daniel France is a 80y/o M with PMH significant for HTN, dyslipidemia, prostate cancer, and depression. Acute Hypokalemia/Hypophosphatemia: -Severe and recurrent/persistent hypokalemia, along with hypophosphatemia. -Nephrology/oncology consulted: Xgeva and Lasix along with malnutrition likely playing a role in his continued depleted electrolytes. Lasix transitioned to amiloride for potassium sparing effect. -K and Phos are trending upward with continued repletion and time since last Xgeva dosing. -Continue to monitor daily and replace with KPhos QID. Repeat BMP this afternoon showed K 3.2->4.1 after receiving 40meq KRiders IV this morning. Hypocalcemia: -Sec to Xgeva with associated secondary hyperparathyroidism. PTH initially elevated, but trending down. -Per nephro recommendations ergocalciferol/CaCO3/vitamin D3 were stopped, and calcitriol increased to 1.5 mcg daily. 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 -Holding Xgeva due to electrolyte derangements as described above. Dyslipidemia: -Continue atorvastatin. Hypertension: -Continue metoprolol for secondary risk reduction. -Amiloride 2.5mg daily added this admission for BP control as well as need for potassium sparing diuretic to substitute Lasix. Constipation: -Patient reports constipation which is echoed in EMR documentation by nursing. -Abdominal exam is benign without abdominal pain, no complaints of nausea or v omiting. -Holding off on medications at this time given potential for worsening electrolyte derangement with diarrhea. -Prune juice ok with meals. Daily abdominal exams. Lower extremity edema: -Emmy's initial presenting complaint to hospital was due to ambulatory dysfunction due to swollen legs. -Patient should wear TIERRA hosiery, as well as ambulate when able to be assisted. Elevate legs when able. -Lasix transitioned to amiloride 2.5 mg daily. No changes in kidney function on this regimen and legs are without edema today. Diet: Low sodium diet CODE STATUS: Full Code DVT PPx: Lovenox SQ Dispo: Remains on [employer]. Plan remains for patient to be discharged to [facility], referral was made and is pending insurance authorization Admission and Anticipated Discharge Date Admission Date: September 16, 2020 Supervising Physician Co-Signing Physician Notes Resident Physician Supervision Note: I independently interviewed and examined the patient and verified the townsend history and physical, reviewed labs and image studies, discussed the case with the resident Dr. Estes and agree with the findings and care plan. Subjective Patient without acute overnight events. Feels well this morning, though admits to feeling weak. No complaints of chest pain, palpitations, shortness of breath, abdominal pain, headaches, dizziness. Review of Systems Review of Systems: All systems reviewed & are unremarkable except as noted in HPI & below Constitutional: no fever, no chills and no malaise Respiratory: no cough and no dyspnea Cardiovascular: no chest pain, no palpitations and no edema Gastrointestinal: no abdominal pain, no constipation and no diarrhea/loose stools Physical Exam Constitutional: well developed and + thin; no acute distress Respiratory: normal respiratory effort, lungs clear to auscultation Cardiovascular: RRR, no murmur, no edema Gastrointestinal (Abdomen): normal bowel sounds, soft, nontender, no hepatosplenomegaly Musculoskeletal: Extremities: no cyanosis Skin: no rashes, warm and dry Neurologic: awake; not confused Psychiatric: A+Ox3, euthymic affect Results & Data Results & Data ([facility]) Vital Signs (Past 12 Hours) Vital Signs Temp Pulse Pulse Resp BP BP Pulse Ox 09/29/20 11:13 36.4 C L 71 18 119/83 96 09/29/20 08:54 90 122/79 09/29/20 07:26 36.8 C 75 18 134/88 93 09/29/20 07:00 87 09/29/20 03:22 36.9 C 89 18 142/88 H 94 Resident Activity Tracking Resident Involvement: Resident Care Provided Care Provided: Adult [facility] Medicine
[2020-09-29] MEDS: ENZALUTAMIDE 40 MG PO SCH (14:43)
[2020-09-29] MEDS ORDERED: SENNA 8.6 MG TAB PO SCH (15:00)
[2020-09-29 16:29] LABS: BUN Creatinine Ratio 27.4 (10-20); Calcium 7.9 mg/dl (8.5-10.1); Est GFR (Non-African American) 98.4; Phosphorus 2.6 mg/dl (2.5-4.9); Potassium 4.1 mmol/L (3.5-5.1)
[2020-09-29] MEDS: ENOXAPARIN INJ 40 MG/0.4 ML SYR SQ SCH (20:57)
[2020-09-29] MEDS: PARoxetine HCL 20 MG TAB PO SCH (20:57)
[2020-09-30 06:44] LABS: Hematocrit (blood only) 40.6 % (42-52); Hemoglobin 14.1 g/dL (14.0-18.0); Mean Corpuscular Hemoglobin 30.1 pg (25-34); Mean Corpuscular Hgb Conc 34.7 g/dL (32-36); Mean Corpuscular Volume 86.6 fL (80-100); Mean Platelet Volume 9.8 fL (7.4-10.4); Platelet Count 219 K/uL (130-400); RDW Coefficient of Variation 13.5 % (11.5-14.5); RDW Standard Deviation 42.5 fL (36.4-46.3); Red Blood Count 4.69 M/uL (4.7-6.1); White Blood Count 13.02 K/uL (4.8-10.8)
[2020-09-30 07:29] LABS: BUN Creatinine Ratio 33.5 (10-20); Calcium 7.7 mg/dl (8.5-10.1); Creatinine Clr Calc Pharmacy 153.6 ml/min; Est GFR (African American) 132.3; Est GFR (Non-African American) 114.2; Magnesium 1.8 mg/dl (1.8-2.4); Phosphorus 2.6 mg/dl (2.5-4.9); Potassium 3.2 mmol/L (3.5-5.1)
[2020-09-30] MEDS: ATORVASTATIN 40 MG TAB PO SCH (07:46)
[2020-09-30] MEDS: amLODIPine BESYLATE 5 MG TAB PO SCH (07:46)
[2020-09-30] MEDS: PANTOprazole 40 MG TAB PO SCH (07:46)
[2020-09-30] MEDS: POT PHOSPHATE MONOBASIC W/ SOD TAB PO SCH ×4 (07:46→20:53)
[2020-09-30] MEDS: METOPROLOL TARTRATE 25 MG TAB PO SCH (07:47)
[2020-09-30] MEDS: CALCITRIOL 0.25 MCG CAPSULE PO SCH (07:47)
[2020-09-30] MEDS: MAGNESIUM OXIDE 400 MG TAB PO SCH (07:47)
[2020-09-30] MEDS: aMILoride HCL 5 MG TAB PO SCH (07:47)
[2020-09-30] MEDS: ASPIRIN 81 MG ECTAB PO SCH (07:48)
[2020-09-30] MEDS: predniSONE 5 MG TAB PO SCH (07:48)
[2020-09-30] MEDS: DOCUSATE SODIUM 100 MG CAP PO SCH (07:52)
[2020-09-30] MEDS ORDERED: POTASSIUM CHLORIDE CRTAB 20 MEQ TABCR PO SCH (09:00)
--- NOTE | 2020-09-30 11:38 | Hospitalist Progress Note ---
Date of Service September 30, 2020 Assessment & Plan (1) Hypocalcemia: 80 yo M with PMHx significant for HTN, dyslipidemia, prostate cancer, and depression admitted for ambulatory dysfunction and found to have electrolyte derangement. Acute Hypokalemia/Hypophosphatemia: -Severe and recurrent/persistent hypokalemia, along with hypophosphatemia. -Nephrology/oncology consulted: Xgeva and Lasix along with malnutrition likely playing a role in his continued depleted electrolytes. Lasix transitioned to amiloride this admission for potassium sparing effect. -K and Phos are trending upward with continued repletion and time since last Xgeva dosing. -Continue to monitor daily and replace with KPhos QID. Repeat BMP this afternoon to assess hypokalemia. Hypocalcemia: -Secondary to Xgeva with associated secondary hyperparathyroidism. PTH initially elevated, but trending down. -Per nephro recommendations ergocalciferol/CaCO3/vitamin D3 were stopped, and calcitriol increased to 1.5 mcg daily. 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 -Holding Xgeva due to electrolyte derangements as described above. Dyslipidemia: -Continue atorvastatin. Hypertension: -Continue metoprolol for secondary risk reduction. -Amiloride 2.5mg daily added this admission for BP control as well as need for potassium sparing diuretic to substitute Lasix. Constipation: -Patient reports constipation in general during his hospitalization, but did have BM overnight. -Abdominal exam is benign without abdominal pain, no complaints of nausea or vomiting. -Holding off on medications at this time given potential for worsening electrolyte derangement with diarrhea. -Prune juice ok with meals as needed for constipation. Daily abdominal exams. Lower extremity edema: -Patient's initial presenting complaint to hospital was due to ambulatory dysfunction due to swollen legs. -Patient should wear TIERRA hosiery, as well as ambulate when able to be assisted. Elevate legs when able. -Lasix transitioned to amiloride 2.5 mg daily this admission. No changes in kidney function on this regimen and legs are without edema today. CODE STATUS: Full Code Diet: Low sodium diet DVT PPx: Lovenox SQ Dispo: Remains on [employer]. Plan remains for patient to be discharged to [facility], referral was made and is pending insurance authorization Admission and Anticipated Discharge Date Admission Date: September 16, 2020 Supervising Physician Co-Signing Physician Notes Resident Physician Supervision Note: I independently interviewed and examined the patient and verified the townsend history and physical, reviewed labs and image studies, discussed the case with the resident Dr. Estes and agree with the findings and care plan. Subjective Patient without acute overnight events. Feels well this morning, still some weakness. No complaints of chest pain, palpitations, shortness of breath, abdominal pain, headaches, dizziness. Review of Systems Review of Systems: All systems reviewed & are unremarkable except as noted in HPI & below Constitutional: no fever, no chills and no malaise Respiratory: no cough and no dyspnea Cardiovascular: no chest pain, no palpitations and no edema Gastrointestinal: no abdominal pain, no constipation and no diarrhea/loose stools Physical Exam Constitutional: well developed and + thin; no acute distress Respiratory: normal respiratory effort, lungs clear to auscultation Cardiovascular: RRR, no murmur, no edema Gastrointestinal (Abdomen): normal bowel sounds, soft, nontender, no hepatosplenomegaly Musculoskeletal: Extremities: no cyanosis Skin: no rashes, warm and dry Neurologic: awake; not confused Psychiatric: A+Ox3, euthymic affect Results & Data Results & Data ([facility]) Vital Signs (Past 12 Hours) Vital Signs Temp Pulse Pulse Resp BP BP Pulse Ox 09/30/20 11:22 36.4 C L 76 20 104/69 96 09/30/20 07:45 71 132/86 09/30/20 07:04 36.3 C L 87 20 124/82 93 09/30/20 07:00 78 09/30/20 02:51 36.9 C 71 18 136/77 94 09/30/20 02:00 80 Resident Activity Tracking Resident Involvement: Resident Care Provided Care Provided: Adult Hospital Medicine
[2020-09-30 14:50] LABS: BUN Creatinine Ratio 30.4 (10-20); Calcium 7.9 mg/dl (8.5-10.1); Creatinine Clr Calc Pharmacy 108.9 ml/min; Est GFR (African American) 114.9; Est GFR (Non-African American) 99.1; Magnesium 1.9 mg/dl (1.8-2.4); Phosphorus 2.4 mg/dl (2.5-4.9); Potassium 3.9 mmol/L (3.5-5.1)
[2020-09-30] MEDS: ENZALUTAMIDE 40 MG PO SCH (15:25)
[2020-09-30] MEDS: POTASSIUM CHLORIDE CRTAB 20 MEQ TABCR PO SCH (20:52)
[2020-09-30] MEDS: PARoxetine HCL 20 MG TAB PO SCH (20:53)
[2020-09-30] MEDS: ENOXAPARIN INJ 40 MG/0.4 ML SYR SQ SCH (20:54)
[2020-10-01 07:58] LABS: BUN Creatinine Ratio 28.5 (10-20); Calcium 7.7 mg/dl (8.5-10.1); Creatinine Clr Calc Pharmacy 142.6 ml/min; Est GFR (African American) 128.3; Est GFR (Non-African American) 110.7; Potassium 3.6 mmol/L (3.5-5.1)
[2020-10-01 07:59] LABS: Phosphorus 2.4 mg/dl (2.5-4.9)
[2020-10-01] MEDS: amLODIPine BESYLATE 5 MG TAB PO SCH (08:26)
[2020-10-01] MEDS: ATORVASTATIN 40 MG TAB PO SCH (08:27)
[2020-10-01] MEDS: predniSONE 5 MG TAB PO SCH (08:28)
[2020-10-01] MEDS: MAGNESIUM OXIDE 400 MG TAB PO SCH (08:28)
[2020-10-01] MEDS: ASPIRIN 81 MG ECTAB PO SCH (08:28)
[2020-10-01] MEDS: CALCITRIOL 0.25 MCG CAPSULE PO SCH (08:28)
[2020-10-01] MEDS: PANTOprazole 40 MG TAB PO SCH (08:29)
[2020-10-01] MEDS: aMILoride HCL 5 MG TAB PO SCH (08:29)
[2020-10-01] MEDS: METOPROLOL TARTRATE 25 MG TAB PO SCH (08:30)
[2020-10-01] MEDS: POTASSIUM CHLORIDE CRTAB 20 MEQ TABCR PO SCH ×2 (08:30→20:22)
[2020-10-01] MEDS: POT PHOSPHATE MONOBASIC W/ SOD TAB PO SCH ×4 (08:31→20:23)
[2020-10-01] MEDS: DOCUSATE SODIUM 100 MG CAP PO SCH (08:36)
[2020-10-01] MEDS: ENZALUTAMIDE 40 MG PO SCH (12:11)
--- NOTE | 2020-10-01 16:30 | Hospitalist Progress Note ---
Date of Service October 01, 2020 Assessment & Plan (1) Hypocalcemia: 80 yo M with PMHx significant for HTN, dyslipidemia, prostate cancer, and depression admitted for ambulatory dysfunction and found to have electrolyte derangement. Acute Hypokalemia/Hypophosphatemia: -Severe and recurrent/persistent hypokalemia, along with hypophosphatemia. -Nephrology/oncology consulted: Xgeva and Lasix along with malnutrition likely playing a role in his continued depleted electrolytes. Lasix transitioned to amiloride this admission for potassium sparing effect. -K and Phos are trending upward with continued repletion and time since last Xgeva dosing. -Daily BMP. KPhos 1 tab QID, KCl 40meq BID. Hypocalcemia: -Secondary to Xgeva with associated secondary hyperparathyroidism. PTH initially elevated, but trending down. -Per nephro recommendations ergocalciferol/CaCO3/vitamin D3 were stopped, and calcitriol increased to 1.5 mcg daily. 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 -Holding Xgeva due to electrolyte derangements as described above. -Continue chronic Palmer. Last changed 09/30. Dyslipidemia: -Continue atorvastatin. Hypertension: -Continue metoprolol for secondary risk reduction. -Amiloride 2.5mg daily added this admission for BP control as well as need for potassium sparing diuretic to substitute Lasix. Constipation: -Patient reports constipation in general during this hospitalization, but did have BM 4/5. -Abdominal exam is benign without abdominal pain, no complaints of nausea or vomiting. -Prune juice ok with meals as needed for constipation. Daily abdominal exams. Lower extremity edema: -Patient's initial presenting complaint to hospital was due to ambulatory dysfunction due to swollen legs. -Patient should wear TIERRA hosiery, as well as ambulate when able to be assisted. Elevate legs when able. -Lasix transitioned to amiloride 2.5 mg daily this admission. No changes in kidney function on this regimen and legs are without edema today. CODE STATUS: Full Code Diet: Low sodium diet DVT PPx: Lovenox SQ Dispo: Remains on [employer]. Plan remains for patient to be discharged to [facility], referral was made and is pending insurance authorization Admission and Anticipated Discharge Date Admission Date: September 16, 2020 Supervising Physician Co-Signing Physician Notes Resident Physician Supervision Note: I independently interviewed and examined the patient and verified the townsend hi story and physical, reviewed labs and image studies, discussed the case with the resident Dr. Estes and agree with the findings and care plan. Subjective Patient without acute overnight events. Feels well this morning, just tired. No complaints of chest pain, palpitations, shortness of breath, abdominal pain, headaches, dizziness. Review of Systems Review of Systems: All systems reviewed & are unremarkable except as noted in HPI & below Constitutional: no fever, no chills and no malaise Respiratory: no cough and no dyspnea Cardiovascular: no chest pain, no palpitations and no edema Gastrointestinal: no abdominal pain, no constipation and no diarrhea/loose stools Physical Exam Constitutional: well developed and + thin; no acute distress Respiratory: normal respiratory effort, lungs clear to auscultation Cardiovascular: RRR, no murmur, no edema Gastrointestinal (Abdomen): normal bowel sounds, soft, nontender, no hepatosplenomegaly Musculoskeletal: Extremities: no cyanosis Skin: no rashes, warm and dry Neurologic: awake; not confused Psychiatric: A+Ox3, euthymic affect Genitourinary: chronic palmer in place draining clear yellow urine Results & Data Results & Data ([facility]) Vital Signs (Past 12 Hours) Vital Signs Temp Pulse Pulse Resp BP Pulse Ox 10/01/20 15:51 37.4 C 88 16 120/82 96 10/01/20 15:46 83 10/01/20 10:57 36.4 C L 78 20 125/79 91 10/01/20 10:05 99 H 10/01/20 07:29 36.6 C 90 18 138/80 94 Resident Activity Tracking Resident Involvement: Resident Care Provided Care Provided: Adult Hospital Medicine
[2020-10-01] MEDS: ENOXAPARIN INJ 40 MG/0.4 ML SYR SQ SCH (20:21)
[2020-10-01] MEDS: PARoxetine HCL 20 MG TAB PO SCH (20:22)
[2020-10-02 07:17] LABS: BUN Creatinine Ratio 25.8 (10-20); Calcium 7.5 mg/dl (8.5-10.1); Creatinine Clr Calc Pharmacy 130.2 ml/min; Est GFR (African American) 123.6; Est GFR (Non-African American) 106.7; Potassium 3.5 mmol/L (3.5-5.1)
[2020-10-02] MEDS: POT PHOSPHATE MONOBASIC W/ SOD TAB PO SCH ×4 (08:24→20:13)
[2020-10-02] MEDS: PANTOprazole 40 MG TAB PO SCH (08:24)
[2020-10-02] MEDS: CALCITRIOL 0.25 MCG CAPSULE PO SCH (08:24)
[2020-10-02] MEDS: aMILoride HCL 5 MG TAB PO SCH (08:24)
[2020-10-02] MEDS: POTASSIUM CHLORIDE CRTAB 20 MEQ TABCR PO SCH ×2 (08:25→20:13)
[2020-10-02] MEDS: MAGNESIUM OXIDE 400 MG TAB PO SCH (08:25)
[2020-10-02] MEDS: ATORVASTATIN 40 MG TAB PO SCH (08:25)
[2020-10-02] MEDS: amLODIPine BESYLATE 5 MG TAB PO SCH (08:25)
[2020-10-02] MEDS: METOPROLOL TARTRATE 25 MG TAB PO SCH (08:25)
[2020-10-02] MEDS: ASPIRIN 81 MG ECTAB PO SCH (08:25)
[2020-10-02] MEDS: predniSONE 5 MG TAB PO SCH (08:26)
[2020-10-02] MEDS: DOCUSATE SODIUM 100 MG CAP PO SCH (08:35)
--- NOTE | 2020-10-02 12:39 | Hospitalist Progress Note ---
Date of Service October 02, 2020 Assessment & Plan (1) Hypocalcemia: 80 yo M with PMHx significant for HTN, dyslipidemia, prostate cancer, and depression admitted for ambulatory dysfunction and found to have electrolyte derangement. Acute Hypokalemia/Hypophosphatemia: -Severe and recurrent/persistent hypokalemia, along with hypophosphatemia. -Nephrology/oncology consulted: Xgeva and Lasix along with malnutrition likely playing a role in his continued depleted electrolytes. Lasix transitioned to amiloride this admission for potassium sparing effect. -K and Phos are trending upward with continued repletion and time since last Xgeva dosing. -Daily BMP while admitted. KPhos 1 tab QID, KCl 40meq BID. -PT/OT recommended acute inpatient rehabilitation. Acute rehab was denied by insurance despite peer to peer. -Patient accepted for [facility] placement tomorrow. Hypocalcemia: -Secondary to Xgeva with associated secondary hyperparathyroidism. PTH initially elevated, but trending down. -Per nephrology recommendations ergocalciferol/CaCO3/vitamin D3 were stopped, and calcitriol increased to 1.5 mcg daily. 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 -Holding Xgeva due to electrolyte derangements as described above. -Continue chronic [place]. Last changed 09/30. Dyslipidemia: -Continue atorvastatin. Hypertension: -Continue metoprolol for secondary risk reduction. -Amiloride 2.5mg daily added this admission for BP control as well as need for potassium sparing diuretic to substitute Lasix. Constipation: -Patient reports constipation in general during this hospitalization, but did have BM 4/5. -Abdominal exam is benign without abdominal pain, no complaints of nausea or vomiting. -Prune juice ok with meals as needed for constipation. Daily abdominal exams. Lower extremity edema: -Patient's initial presenting complaint to hospital was due to ambulatory dysfunction due to swollen legs. -Patient should wear TIERRA hosiery, as well as ambulate when able to be assisted. Elevate legs when able. -Lasix transitioned to amiloride 2.5 mg daily this admission. No changes in kidney function on this regimen and legs are without edema today. CODE STATUS: Full Code Diet: Low sodium diet DVT PPx: Lovenox SQ Dispo: Med/Surg, authorized for placement tomorrow to [facility] Admission and Anticipated Discharge Date Admission Date: September 16, 2020 Supervising Physician Co-Signing Physician Notes Resident Physician Supervision Note: I independently interviewed and examined the patient and verified the townsend history and physical, reviewed labs and image studies, discussed the case with the resident Dr. Estes and agree with the findings and care plan. Subjective No changes overnight. Doing well but feels weak. Motivated with PT but feels tir ed relatively quickly. No nausea, chest pain, SOB. No diarrhea. Review of Systems Review of Systems: All systems reviewed & are unremarkable except as noted in HPI & below Constitutional: no fever, no chills and no malaise Respiratory: no cough and no dyspnea Cardiovascular: no chest pain, no palpitations and no edema Gastrointestinal: no abdominal pain, no constipation and no diarrhea/loose stools Physical Exam Constitutional: well developed and + thin; no acute distress Respiratory: normal respiratory effort, lungs clear to auscultation Cardiovascular: RRR, no murmur, no edema Gastrointestinal (Abdomen): normal bowel sounds, soft, nontender, no hepatosplenomegaly Musculoskeletal: Extremities: no cyanosis Skin: no rashes, warm and dry Neurologic: awake; not confused Psychiatric: A+Ox3, euthymic affect Results & Data Results & Data ([facility]) Vital Signs (Past 12 Hours) Vital Signs Temp Pulse Pulse Resp BP Pulse Ox 10/02/20 11:19 36.9 C 74 20 126/79 95 10/02/20 08:13 36.4 C L 85 20 143/88 H 93 10/02/20 06:22 100 H 10/02/20 03:53 36.7 C 87 18 135/75 92 Resident Activity Tracking Resident Involvement: Resident Care Provided Care Provided: Adult Hospital Medicine
[2020-10-02] MEDS: ENZALUTAMIDE 40 MG PO SCH (13:05)
[2020-10-02] MEDS ORDERED: LORATADINE 10 MG TAB PO PRN (15:31)
--- NOTE | 2020-10-02 15:56 | Electrocardiogram Report ---
Test Reason : Blood Pressure : / mmHG Vent. 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
[2020-10-02] MEDS: PARoxetine HCL 20 MG TAB PO SCH (20:13)
[2020-10-02] MEDS: ENOXAPARIN INJ 40 MG/0.4 ML SYR SQ SCH (20:13)
[2020-10-03] MEDS: POTASSIUM CHLORIDE CRTAB 20 MEQ TABCR PO SCH (09:14)
[2020-10-03] MEDS: ATORVASTATIN 40 MG TAB PO SCH (09:14)
[2020-10-03] MEDS: CALCITRIOL 0.25 MCG CAPSULE PO SCH (09:15)
[2020-10-03] MEDS: POT PHOSPHATE MONOBASIC W/ SOD TAB PO SCH ×2 (09:15→13:09)
[2020-10-03] MEDS: aMILoride HCL 5 MG TAB PO SCH (09:15)
[2020-10-03] MEDS: ASPIRIN 81 MG ECTAB PO SCH (09:15)
[2020-10-03] MEDS: METOPROLOL TARTRATE 25 MG TAB PO SCH (09:16)
[2020-10-03] MEDS: predniSONE 5 MG TAB PO SCH (09:16)
[2020-10-03] MEDS: amLODIPine BESYLATE 5 MG TAB PO SCH (09:16)
[2020-10-03] MEDS: MAGNESIUM OXIDE 400 MG TAB PO SCH (09:16)
[2020-10-03] MEDS: PANTOprazole 40 MG TAB PO SCH (09:16)
[2020-10-03] MEDS: DOCUSATE SODIUM 100 MG CAP PO SCH (09:26)
--- NOTE | 2020-10-03 12:02 | Discharge Summary ---
Date of Service October 03, 2020 Admission HPI Per Admitting Provider 80-year-old male recently discharged on 04 September for [facility] after presenting with massive bilateral lower extremity swelling and hypokalemia. The patient has associated metastatic prostate cancer with mets to bones possibly lung. He is a longstanding indwelling Loredo catheter and during that last admission he was chronically hypoalbuminemic. At that time he had CT scan abdomen pelvis which showed necrotic mass associate with his prostate. No compressive lymphadenopathy in his abdomen. There is no evidence of any renal thromboembolism causing lower extremity swelling. An echocardiogram had preserved systolic function. During hospital stay he was diuresed with Lasix and sent out on Lasix and potassium however he represents 09/16/2020 with progressive swelling over the last 2 weeks and massive edema causing ambulation problems. He is known to have a potassium of 2.6 is once again recommended for admission to intensive medicine lower extremity swelling. Principal Diagnosis hypoK/Phos/Mg Discharge Exam Constitutional well developed and + thin Respiratory normal respiratory effort, lungs clear to auscultation Cardiovascular RRR, no murmur, no edema Gastrointestinal (Abdomen) normal bowel sounds, soft, nontender, no hepatosplenomegaly Musculoskeletal Extremities: no cyanosis Skin no rashes, warm and dry Neurologic awake; not confused Psychiatric A+Ox3, euthymic affect Discharge Data Allergies Allergy/AdvReac Type Severity Reaction Status Date / Time No Known Allergies Allergy Unverified 09/16/20 16:04 Consultations 09/16/20 17:25 ED Decision to Admit Stat 09/23/20 08:48 Consult Oncology Routine Ordered Studies 09/16/20 17:47 US venous doppler [facility] Stat Hospital Course (1) Hypokalemia: 80 yo M with PMHx significant for HTN, dyslipidemia, prostate cancer, and depression admitted for ambulatory dysfunction and found to have electrolyte derangement. The following was the medical management during stay here: Acute Hypokalemia/Hypophosphatemia: -Severe and recurrent/persistent hypokalemia, along with hypophosphatemia. -Nephrology/oncology consulted: Xgeva and Lasix along with malnutrition likely playing a role in his continued depleted electrolytes. Lasix transitioned to amiloride this admission for potassium sparing effect. -K and Phos are trending upward with continued repletion and time since last Xgeva dosing. Last Labs: K 3.5, Phos 2.4 -Daily BMP while admitted. KPhos 1 tab QID, KCl 40meq BID on discharge. -Please repeat BMP, Mg, Phos in 2-3 days after discharge -PT/OT recommended acute inpatient rehabilitation. Acute rehab was denied by insurance despite peer to peer. -Patient accepted for SNF [facility] Hypocalcemia: -Secondary to Xgeva with associated secondary hyperparathyroidism. PTH initially elevated, but trending down. -Per nephrology recommendations ergocalciferol/CaCO3/vitamin D3 were stopped, and calcitriol increased to 1.5 mcg daily. Last Ca 7.5, corrected to 8.4. Repeat BMP as above Prostate Cancer with Chronic Urinary Retention requiring Chronic Loredo: -Patient 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 -Holding Xgeva due to electrolyte derangements as described above. -Continue chronic Loredo. Last changed 09/30. Dyslipidemia: -Continue atorvastatin. Hypertension: -Continue metoprolol for secondary risk reduction. -Amiloride 2.5mg daily added this admission for BP control as well as need for potassium sparing diuretic to substitute Lasix. Constipation: -Patient reports constipation in general during this hospitalization, but did have BM 4. -Abdominal exam is benign without abdominal pain, no complaints of nausea or vomiting. -Prune juice ok with meals as needed for constipation. Daily abdominal exams. Lower extremity edema: -Patient's initial presenting complaint to hospital was due to ambulatory dysfunction due to swollen legs. -Patient should wear TIERRA hosiery, as well as ambulate when able to be assisted. Elevate legs when able. -Lasix transitioned to amiloride 2.5 mg daily this admission. No changes in kidney function on this regimen and legs are without edema today. CODE STATUS: Full Code Diet: Low sodium diet DVT PPx: Lovenox SQ At time of discharge pt with no other acute concerns or complaints. Authorized for placement to [facility]. Total Time Total Time Spent Total Time Spent (In Minutes): 30 Discharge Plan Discharge Items Patient Disposition: Transfer Care Home Fac Reason For Visit: HYPOKALEMIA, LE EDEMA, METASTATIC PROSTATE CA Discharge Diagnosis: hypokalemia Activity: Per Instructions section Non-emergency contact: Primary Care Provider, Oncologist and Urologist Call non-emergency contact if: you have any medication questions, your pain is not controlled and your temperature is above 101 Follow-up/Referrals: Issac Morton MD [Primary Care Provider] - Diet: Low Sodium (2gm) Ambulatory Orders: Basic Metabolic Panel (Routine) Timeframe: 20201006 Location: Determined by Patient Ordered By: Aravind Olivarez Magnesium (Routine) Timeframe: 20201005 Location: Determined by Patient Ordered By: Aravind Olivarez Phosphorus (Routine) Timeframe: 20201005 Location: Determined by Patient Ordered By: Aravind Olivarez Addtl Attending Provider Instructions: 80 yo M with PMHx significant for HTN, dyslipidemia, prostate cancer, and depression admitted for ambulatory dysfunction and found to have electrolyte derangement. Acute Hypokalemia/Hypophosphatemia: -Severe and recurrent/persistent hypokalemia, along with hypophosphatemia. -Nephrology/oncology consulted: Xgeva and Lasix along with malnutrition likely playing a role in his continued depleted electrolytes. -Lasix transitioned to amiloride this admission for potassium sparing effect. -K and Phos are trending upward with continued repletion and time since last Xgeva dosing. Last labs: K 3.5, Phos 2.4 -Continue KPhos 1 tab QID, KCl 40meq BID on discharge. -BMP, Mg, Phos in 2-3 days after discharge to evaluate for electrolyte stability. Deconditioning: -On admission patient was supervision only for most physical activities. -Has had steady decline to requiring moderate to significant assist on most PT activities. -Patient is motivated but fearful of falling. Continue PT/OT with motivation. Hypocalcemia: -Secondary to Xgeva with associated secondary hyperparathyroidism. PTH initially elevated, but trending down. -Per nephrology recommendations, ergocalciferol/CaCO3/vitamin D3 were stopped, and calcitriol increased to 1.5 mcg daily. Last Ca 7.5, corrected to 8.4 Prostate Cancer with Chronic Urinary Retention requiring Chronic Loredo: -Patient 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 -Holding Xgeva due to electrolyte derangements as described above. -Continue chronic Loredo. Last changed 09/30. Dyslipidemia: -Continue atorvastatin. Hypertension: -Continue metoprolol for secondary risk reduction. -Amiloride 2.5mg daily added this admission for BP control. Constipation: -Patient reports constipation in general during this hospitalization. -Abdominal exam is benign without abdominal pain, no complaints of nausea or vomiting. -Prune juice ok with meals as needed for constipation. Can give Miralax as needed to titrate BMs to one soft BM daily. Lower extremity edema: -Patient's initial presenting complaint to hospital was due to ambulatory dysfunction due to swollen legs. -Patient should wear TIERRA hosiery, as well as ambulate when able to be assisted. Elevate legs when able. -Lasix transitioned to amiloride 2.5 mg daily this admission. No changes in kidney function on this regimen and legs are without edema on discharge. -Low sodium diet Pending Studies at Discharge: No Stand-Alone Forms: [facility] Skilled Items Patient informed of condition?: Yes DNR: No Discharge Level of Care: Skilled Communicable Disease: No Discharge Prognosis: Stable Lines: None Urinary Catheter: Yes Medications and DC Order Prescriptions: New amiloride 5 mg tablet 2.5 mg PO DAILY Qty: 30 RF: 0 calcitriol 0.5 mcg capsule 1.5 mcg PO DAILY 30 Days Qty: 90 RF: 0 magnesium oxide 400 mg magnesium capsule 400 mg PO DAILY Qty: 30 RF: 0 P-Mmba-Vyskxed 250 mg tablet 1 tab PO QID 30 Days Qty: 120 RF: 0 potassium chloride [K-Tab] 20 mEq tablet extended release 40 meq PO BID 30 Days Qty: 120 RF: 0 Continued atorvastatin 40 mg Tablet 40 mg PO QAM Qty: 0 RF: 0 polyethylene glycol 3350 [Miralax] 17 gram Powder In Packet 17 g PO DAILY PRN (Reason: Constipation) Qty: 527 RF: 0 aspirin [Aspirin Low Dose] 81 mg Tablet,Delayed Release (Dr/Ec) 81 mg PO DAILY Qty: 0 RF: 0 Fiber (psyllium husk/sugar) 3.4 gram/11 gram Powder 1 tsp PO DAILY Qty: 0 RF: 0 Boost 0.04 gram- 1 kcal/mL Liquid 1 ea PO DAILY Qty: 0 RF: 0 loratadine 10 mg Tablet 10 mg PO DAILY PRN (Reason: ALLERGIES) Qty: 0 RF: 0 oxybutynin chloride 5 mg tablet 5 mg PO BID PRN (Reason: bladder spasms) Qty: 60 RF: 1 ferrous sulfate 325 mg (65 mg iron) tablet 325 mg PO DAILY RF: 0 metoprolol tartrate 25 mg tablet 25 mg PO DAILY RF: 0 omeprazole 20 mg capsule,delayed release(DR/EC) 20 mg PO DAILY RF: 0 paroxetine HCl 20 mg tablet 20 mg PO HS RF: 0 prednisone 5 mg tablet 5 mg PO DAILY RF: 0 amlodipine 2.5 mg Tablet 2.5 mg PO DAILY RF: 0 docusate sodium 100 mg Capsule 300 mg PO DAILY RF: 0 sennosides 25 mg Tablet 50 mg PO .Q4DAYS PRN (Reason: Constipation) RF: 0 dicyclomine 10 mg Capsule 20 mg PO Q6 PRN (Reason: Bladder Spasms) RF: 0 Xtandi 40 mg capsule 160 mg PO DAILY RF: 0 PreserVision AREDS-2 250-90-40-1 mg Capsule 2 tab PO DAILY RF: 0 Lupron Depot (6 Month) 45 mg syringe kit 0 mg IM .[id number] RF: 0 (DME) walker Misc See Rx Instructions .ROUTE .MEDSUPPLY Qty: 1 RF: 0 Discontinued Xgeva 120 mg/1.7 mL (70 mg/mL) Solution 0 mg SUBCUT MO RF: 0 potassium chloride 20 mEq tablet extended release 20 meq PO DAILY PRN (Reason: WHEN TAKES LASIX) RF: 0 furosemide [Lasix] 20 mg tablet 20 mg PO DAILY PRN (Reason: swelling of legs) Qty: 30 RF: 2 Discharge Orders: Discharge Order (Routine); Ordered 10/03/20 Ordered By: Aravind Olivarez Admission Data Admit Date/Time: 09/16/20 17:47 Attending Provider: Najma Rich Admit Provider: [place] Stokes Primary Care Provider: Issac Morton Other Providers: [facility] ; Rebecca Vicente at [place] ; [facility] [place] ; Eugene Sanchez ; Derick Barreto ; Boston Stokes ; Adolfo Mix V. Other Interventions: Discharge Summary Assessment (RN) Last Done: 10/03/20 11:32 Supervising Physician Co-Signing Physician Notes Resident Physician Supervision Note: I independently interviewed and examined the patient and verified the [place] history and physical, reviewed labs and image studies, discussed the case with the resident Dr. Olivarez and agree with the findings and care plan. Resident Activity Tracking Resident Involvement: Resident Care Provided Care Provided: Adult Hospital Medicine
[2020-10-03] MEDS: ENZALUTAMIDE 40 MG PO SCH (13:10)
== END 2020-10-03 14:00 | DRG 641 ==
LOC: ED 14:14 → 2N 17:47 → SUATTDRO 17:47 → 2N 19:05 → UNDODISIN 10-03 11:40

== ENCOUNTER 2020-10-29 14:30 | Observation (INO) ==
[2020-10-29] MEDS ORDERED: SODIUM CHLORIDE 0.9% 1000ML 1,000 ML IV STA (15:17)
--- NOTE | 2020-10-29 15:20 | Emergency Department Note ---
Impression & Plan Pneumonia, Elevated troponin, Dehydration, Acute hypernatremia ED Provider Note NAME: GLYNN OWUSU AGE: 80 SEX: M : 1940 ARRIVES VIA: Walk-In INFORMANT: Patient ED PROVIDER(S): Derick Nix DO CHIEF COMPLAINT: Diffuse pain HPI: Patient is a 80-year-old male referred in from Dr. Anderson office. He lives at [facility]. Per the report he has been slightly more confused than his baseline and has been having pain all over. He denies any new headache or change in vision. Admits to some pain over his upper lip. No chest pain, shortness of breath, nausea, vomiting or diarrhea. No dysuria, urgency, or frequency although he does have a Loredo in place. No other exacerbating or remitting factors. ROS: See above HPI for pertinent positives & negatives. A total of 10 systems reviewed and were otherwise negative. PAST MEDICAL HISTORY:See Below PAST SURGICAL HISTORY:See Below FAMILY HISTORY:See Below SOCIAL HISTORY:See Below HOME MEDICATIONS:See Below ALLERGIES:See Below VITALS:See Below PHYSICAL EXAMINATION: GENERAL: Sitting up in bed, alert, ill-appearing, disheveled, on nasal cannula EYE EXAM: normal conjunctiva. PERRL and EOM's grossly intact. OROPHARYNX: no exudate, no erythema, lips, buccal mucosa, and tongue normal and mucous membranes are moist NECK: supple, no nuchal rigidity, no adenopathy, non-tender LUNGS: Clear to auscultation. Normal chest wall mechanics HEART: no murmurs, S1 normal and S2 normal ABDOMEN: abdomen soft, non-tender, normo-active bowel sounds, no masses, no rebound or guarding. BACK: Back is symmetrical on inspection and there is no deformity, no midline tenderness, no CVA tenderness. SKIN: Diffuse bruising over upper and lower extremities UPPER EXTREMITIES: upper extremities are grossly normal. LOWER EXTREMITIES: No pitting edema. NEURO EXAM: Normal sensorium, cranial nerves II-XII grossly intact, normal speech, no gross weakness of arms, no gross weakness of legs. MEDICAL DECISION MAKING: Patient is a 80-year-old male with metastatic prostate cancer that presents the ER for pain all over. IV was established blood work was obtained. Labs show leukocytosis of 12,000. No significant anemia. INR 1.5. BMP with a sodium of 149. LFTs with mild transaminitis. T bili was normal. Troponin was elevated 0.067. This is increased from his baseline of 0.02. UA was contaminated. Covid was negative. Chest x-ray with a clear infiltrate. He was given IV cefepime a nd vancomycin with the recent hospital stay and admission to [facility].CT of his head showed some edema which I think is likely secondary to an old infarct however they cannot be certain. He has no focal deficit on exam although both his upper and lower extremities are grossly weak bilaterally. He was updated bedside. He was discussed with the hospitalist. He was given fluids and antibiotics and admitted for further work-up. Triage Nursing notes reviewed. Limited review of prior medical records performed Vital Signs: reviewed and remarkable for no significant abnormalities Differential diagnosis: Differential diagnoses includes but is not limited to toxic, metabolic, infectious, traumatic, cardiac, neurologic, hematologic, psychiatric and inflammatory etiologies. ER treatment provided: See below Diagnostics interpreted by me: ECG: Sinus rhythm rate of 110 Normal axis PVCs present QTC 468 Cardiac Monitoring: An order was placed for continuous cardiac monitoring. The monitor shows a rate of 109 with Sinus rhythm. Laboratory studies: As stated above and show below. 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 Initiation of Lupron therapy which continued until June 2017 Missed injection PSA radha to 89 Restart of Lupron therapy Recheck PSA September 29, 2017 0.390 PSA November 16, 2017 0.072" Surgical History H/O eye surgery History of prostate biopsy Hx of tonsillectomy Family History Sister Diabetes Nephrolithiasis Cancer Other No significant family history Social History Smoking Status: Never smoker Second Hand Exposure: No; Hx Alcohol Use: No Hx Substance Use: No Preferred Language: Arabic Communication Ability: Effective Director Of Religious Life Required: No Beliefs That Will Affect Care: None marital status: Single Current Living Situation: Family Current Living Situation Comment: lives with sister current occupational status: retired Feels Safe at Home: Yes Assistive Devices: Glasses Allergies Allergies Allergy/AdvReac Type Severity Reaction Status Date / Time No Known Allergies Allergy Unverified 10/29/20 18:04 Home Meds Home Medications Medication Instructions Recorded Confirmed Boost 1 ea PO DAILY #0 01/10/18 10/29/20 Fiber (psyllium husk-sugar) 1 tsp PO DAILY #0 01/10/18 10/29/20 aspirin [Aspirin Low Dose] 81 mg PO DAILY #0 01/10/18 10/29/20 atorvastatin 40 mg PO QAM #0 tab 01/10/18 10/29/20 loratadine 10 mg PO DAILY PRN #0 tab 01/10/18 10/29/20 polyethylene glycol 3350 [Miralax] 17 g PO DAILY PRN #527 g 01/10/18 10/29/20 ferrous sulfate 325 mg (65 mg 325 mg PO DAILY 01/08/20 10/29/20 iron) tablet metoprolol tartrate 25 mg tablet 25 mg PO DAILY tab 01/08/20 10/29/20 omeprazole 20 mg capsule,delayed 20 mg PO DAILY 01/08/20 10/29/20 release paroxetine HCl 20 mg tablet 20 mg PO HS 01/08/20 10/29/20 prednisone 5 mg tablet 5 mg PO DAILY 01/08/20 10/29/20 Lupron Depot (6 Month) 0 mg IM .[id number] 09/02/20 10/29/20 PreserVision AREDS-2 2 tab PO DAILY 09/16/20 10/29/20 Xtandi 160 mg PO DAILY 09/16/20 10/29/20 amlodipine 2.5 mg PO DAILY 09/16/20 10/29/20 dicyclomine 20 mg PO Q6 PRN 09/16/20 10/29/20 docusate sodium 300 mg PO DAILY 09/16/20 10/29/20 acetaminophen [Tylenol Extended 650 mg PO Q8H PRN 10/29/20 10/29/20 Release] ondansetron 4 mg PO Q6H PRN 10/29/20 10/29/20 oxycodone 10 mg PO Q4H PRN 10/29/20 10/29/20 sennosides [Senna Lax] 17.2 mg PO DAILY 10/29/20 10/29/20 Previous Rx's Medication Instructions Recorded oxybutynin chloride 5 mg tablet 5 mg PO BID PRN #60 tab 06/17/20 amiloride 2.5 mg PO DAILY #30 tab 10/03/20 calcitriol 1.5 mcg PO DAILY 30 Days #90 cap 10/03/20 magnesium oxide 400 mg PO DAILY #30 cap 10/03/20 potassium chloride [K-Tab] 40 meq PO BID 30 Days #120 tab 10/03/20 sod phos di, mono-K phos mono 1 tab PO QID 30 Days #120 tab 10/03/20 [[id number]] Results & Data (ED) Vital Signs Vital Signs - 24 hr 10/29/20 14:59 10/29/20 16:00 10/29/20 16:09 Temperature 36.8 C Temperature Source Temporal Artery Scan Pulse Rate 80 102 H Pulse Rate from SpO2 Sensor 93 H Respiratory Rate 20 20 Blood Pressure 101/59 L 107/78 Blood Pressure Mean 73 87 Blood Pressure Position Lying Pulse Oximetry 96 95 94 Oxygen Delivery Method Nasal Cannula Room Air Oxygen Flow Rate 2 Sepsis Recent Fever Within 48 Hours No Sepsis New/Unexplained Change in Mental Status N/A Sepsis Action Taken by Nursing No Action Required 10/29/20 16:50 10/29/20 17:35 10/29/20 18:01 Temperature Temperature Source Pulse Rate 90 87 Pulse Rate from SpO2 Sensor 103 H 106 H 77 Respiratory Rate 22 23 24 Blood Pressure 102/65 110/67 Blood Pressure Mean 77 81 Blood Pressure Position Pulse Oximetry 93 93 93 Oxygen Delivery Method Oxygen Flow Rate Sepsis Recent Fever Within 48 Hours Sepsis New/Unexplained Change in Mental Status Sepsis Action Taken by Nursing 10/29/20 19:19 Temperature Temperature Source Pulse Rate 116 H Pulse Rate from SpO2 Sensor Respiratory Rate 15 Blood Pressure 112/68 Blood Pressure Mean 82 Blood Pressure Position Pulse Oximetry 94 Oxygen Delivery Method Oxygen Flow Rate Sepsis Recent Fever Within 48 Hours Sepsis New/Unexplained Change in Mental Status Sepsis Action Taken by Nursing Laboratory Data Result diagrams: 10/29/20 16:13 10/29/20 16:13 Lab Results 10/29/20 10/29/20 10/29/20 Range/Units 16:00 16:13 16:13 WBC 12.92 H (4.8-10.8) K/uL RBC 4.33 L (4.7-6.1) M/uL Hgb 13.4 L (14.0-18.0) g/dL Hct 39.5 L (42-52) % MCV 91.2 (80-100) fL MCH 30.9 (25-34) pg MCHC 33.9 (32-36) g/dL RDW Std Deviation 57.6 H (36.4-46.3) fL RDW Coeff of Pardeep 17.4 H (11.5-14.5) % Plt Count 184 (130-400) K/uL MPV 11.6 H (7.4-10.4) fL Immature Gran % (Auto) 0.6 % Neut % (Auto) 90.1 % Lymph % (Auto) 5.4 % Parke % (Auto) 3.8 % Eos % (Auto) 0.0 % Baso % (Auto) 0.1 % Neut # (Auto) 11.64 H (1.4-6.5) K/uL Lymph # (Auto) 0.70 L (1.2-3.4) K/uL Parke # (Auto) 0.49 (0.11-0.59) K/uL Eos # (Auto) 0.00 (0-0.5) K/uL Baso # (Auto) 0.01 (0-0.2) K/uL Immature Gran # (Auto) 0.08 H (0.00-0.02) K/uL Absolute Nucleated RBC 0.03 H (0-0) K/uL Nucleated RBC % (auto) 0.2 % PT 14.8 H (9.0-12.0) Seconds INR 1.5 H (0.9-1.1) Sodium (136-145) mmol/L Potassium (3.5-5.1) mmol/L Chloride (98-107) mmol/L Carbon Dioxide (21-32) mmol/L Anion Gap (3-11) BUN (7-18) mg/dl Creatinine (0.6-1.4) mg/dl Est Cr Clr Drug Dosing ml/min Est GFR ( Amer) Est GFR (Non-Af Amer) BUN/Creatinine Ratio (10-20) Glucose (70-99) mg/dl Calcium (8.5-10.1) mg/dl Total Bilirubin (0.2-1) mg/dl AST (15-37) U/L ALT (12-78) U/L Alkaline Phosphatase (45-117) U/L Troponin I (0-0.045) ng/ml Total Protein (6.4-8.2) gm/dl Albumin (3.4-5.0) gm/dl Globulin (2.5-4.0) gm/dl Albumin/Globulin Ratio (0.9-2) Lipase (73-393) U/L Urine Color Brown Urine Appearance Cloudy A (Clear) Urine pH 8.5 H (4.5-7.5) Ur Specific [place] 1.020 (1.000-1.030) Urine Protein 3+ H (Negative) Urine Glucose (UA) Negative (Negative) Urine Ketones Trace H (Negative) Urine Blood 2+ H (Negative) Urine Nitrite Negative (Negative) Urine Bilirubin 1+ H (Negative) Urine Urobilinogen Positive H (Negative) Ur Leukocyte Esterase 1+ H (Negative) Urine RBC >30 H (0-4) /hpf Urine WBC >30 H (0-5) /hpf Ur Epithelial Cells 10-20 H (0-5) /lpf Triple Phos Crystals Present A (None Prsent) Urine Bacteria 4+ H (Negative) Hyaline Casts 5-10 H (0-5) /lpf COVID-19 Eval Order SARS-CoV-2 (PCR) (Negative) Influenza Type A (PCR) (Neg) Influenza Type B (PCR) (Neg) RSV (RT-PCR) (Neg) 10/29/20 10/29/20 10/29/20 Range/Units 16:13 17:35 17:35 WBC (4.8-10.8) K/uL RBC (4.7-6.1) M/uL Hgb (14.0-18.0) g/dL Hct (42-52) % MCV (80-100) fL MCH (25-34) pg MCHC (32-36) g/dL RDW Std Deviation (36.4-46.3) fL RDW Coeff of Pardeep (11.5-14.5) % Plt Count (130-400) K/uL MPV (7.4-10.4) fL Immature Gran % (Auto) % Neut % (Auto) % Lymph % (Auto) % Parke % (Auto) % Eos % (Auto) % Baso % (Auto) % Neut # (Auto) (1.4-6.5) K/uL Lymph # (Auto) (1.2-3.4) K/uL Parke # (Auto) (0.11-0.59) K/uL Eos # (Auto) (0-0.5) K/uL Baso # (Auto) (0-0.2) K/uL Immature Gran # (Auto) (0.00-0.02) K/uL Absolute Nucleated RBC (0-0) K/uL Nucleated RBC % (auto) % PT (9.0-12.0) Seconds INR (0.9-1.1) Sodium 149 H (136-145) mmol/L Potassium 4.2 (3.5-5.1) mmol/L Chloride 119 H (98-107) mmol/L Carbon Dioxide 23 (21-32) mmol/L Anion Gap 7.0 (3-11) BUN 23 H (7-18) mg/dl Creatinine 0.72 (0.6-1.4) mg/dl Est Cr Clr Drug Dosing 72.4 ml/min Est GFR ( Amer) 102.8 Est GFR (Non-Af Amer) 88.7 BUN/Creatinine Ratio 31.7 H (10-20) Glucose 148 H (70-99) mg/dl Calcium 6.5 L (8.5-10.1) mg/dl Total Bilirubin 0.8 (0.2-1) mg/dl AST 138 H (15-37) U/L ALT 83 H (12-78) U/L Alkaline Phosphatase 224 H (45-117) U/L Troponin I 0.067 H* (0-0.045) ng/ml Total Protein 5.0 L (6.4-8.2) gm/dl Albumin 1.8 L (3.4-5.0) gm/dl Globulin 3.2 (2.5-4.0) gm/dl Albumin/Globulin Ratio 0.6 L (0.9-2) Lipase 152 (73-393) U/L Urine Color Urine Appearance (Clear) Urine pH (4.5-7.5) Ur Specific [place] (1.000-1.030) Urine Protein (Negative) Urine Glucose (UA) (Negative) Urine Ketones (Negative) Urine Blood (Negative) Urine Nitrite (Negative) Urine Bilirubin (Negative) Urine Urobilinogen (Negative) Ur Leukocyte Esterase (Negative) Urine RBC (0-4) /hpf Urine WBC (0-5) /hpf Ur Epithelial Cells (0-5) /lpf Triple Phos Crystals (None Prsent) Urine Bacteria (Negative) Hyaline Casts (0-5) /lpf COVID-19 Eval Order [facility]Rsv at [facility] SARS-CoV-2 (PCR) NEGATIVE (Negative) Influenza Type A (PCR) Negative (Neg) Influenza Type B (PCR) Negative (Neg) RSV (RT-PCR) Negative (Neg) Administered Medications Vancomycin HCl 1,750 mg/ (Sodium Chloride) 535 mls @ 200 mls/hr IV NOW ONE Stop: 10/29/20 19:54 Last Admin: 10/29/20 17:56 Dose: 200 mls/hr Documented by: [id number] Discontinued Medications Sodium Chloride (Nss 1000ml) 1,000 mls @ 999 mls/hr IV .Q1H1M STA Stop: 10/29/20 16:17 Last Admin: 10/29/20 16:10 Dose: 999 mls/hr Documented by: [id number] Cefepime HCl (Maxipime) 2,000 mg in 20 mls @ 5 mls/min IV NOW STA; Protocol Stop: 10/29/20 17:17 Last Admin: 10/29/20 17:33 Dose: 5 mls/min Documented by: [id number] Imaging Data Radiologist's Impression: Chest X-Ray 10/29/20 15:17 XR chest 1V portable CLINICAL HISTORY: Weakness COMPARISON STUDY: 09/16/2020 FINDINGS: The study is rotated. There are old rib deformities. Heart is normal in size. There is aortic tortuosity/ectasia. There are postsurgical changes involving the right clavicle. Since the prior study, the patient has developed an opacity at the right medial lung base. Findings are suspicious for a pneumonia. Clinical and radiographic follow-up is recommended.[There is no fa ilure. There are no pleural effusions. IMPRESSION: 1. Interval development of a focal opacity at the right medial lung base. Given the rapid appearance of this finding, it is viewed as suspicious for a pneumonia. Clinical and radiographic follow-up are recommended ACT 112: Negative or not required by law. Electronically signed by: Jerry Zepeda M.D. 10/29/2020 3:[address] 10/29/20 15:28 CT head/brain wo con CLINICAL HISTORY: Acute change in mental status COMPARISON STUDY: No previous studies for comparison. TECHNIQUE: Axial CT of the brain is performed from the vertex to the skull base. IV contrast was not administered for this examination. A dose lowering technique was utilized adhering to the principles of ALARA. CT DOSE: 1035.81 mGycm FINDINGS: No intra or extra-axial mass lesions are visualized. There is no CT evidence of acute cortical infarction. There is no evidence of midline shift. There is no acute hemorrhage. No calvarial fractures are visualized. There are patchy white matter hypodensities likely on a small vessel basis. There is a left frontal infarct in the region of the jaquez radiata. There is focal white matter edema within the left frontal white matter. While likely on a chronic ischemic basis, and underlying lesion cannot be excluded with certainty. There is no evidence of pathologic ventricular dilatation. There is no evidence of acute sinusitis. There are postsurgical changes involving the left globe IMPRESSION: 1. No evidence of acute hemorrhage 2. 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 Asymmetric white matter edema within the left frontal lobe. Statistically, this is on a chronic ischemic basis. It is not possible with certainty to e xclude an underlying lesion on this noncontrast study. If further evaluation is deemed clinically appropriate, an MRI the brain without and with contrast would be the most appropriate study in follow-up. ACT 112: Negative or not required by law. Electronically signed by: Jerry Zepeda M.D. 10/29/2020 4:39 PM Discharge Plan Visit Data Chief Complaint: Referred by Doctor Stated Complaint: SENT FOR CANCER CARE ED Provider: Derick Nix Discharge Problem: Pneumonia, Elevated troponin, Dehydration, Acute hypernatremia Forms Stand Alone Forms: My [facility] Prescriptions Prescriptions: No Action atorvastatin 40 mg Tablet 40 mg PO QAM Qty: 0 RF: 0 polyethylene glycol 3350 [Miralax] 17 gram Powder In Packet 17 g PO DAILY PRN (Reason: Constipation) Qty: 527 RF: 0 aspirin [Aspirin Low Dose] 81 mg Tablet,Delayed Release (Dr/Ec) 81 mg PO DAILY Qty: 0 RF: 0 Fiber (psyllium husk-sugar) 3.4 gram/11 gram Powder 1 tsp PO DAILY Qty: 0 RF: 0 Boost 0.04 gram- 1 kcal/mL Liquid 1 ea PO DAILY Qty: 0 RF: 0 loratadine 10 mg Tablet 10 mg PO DAILY PRN (Reason: ALLERGIES) Qty: 0 RF: 0 oxybutynin chloride 5 mg tablet 5 mg PO BID PRN (Reason: bladder spasms) Qty: 60 RF: 1 ferrous sulfate 325 mg (65 mg iron) tablet 325 mg PO DAILY RF: 0 metoprolol tartrate 25 mg tablet 25 mg PO DAILY RF: 0 omeprazole 20 mg capsule,delayed release(DR/EC) 20 mg PO DAILY RF: 0 paroxetine HCl 20 mg tablet 20 mg PO HS RF: 0 prednisone 5 mg tablet 5 mg PO DAILY RF: 0 amlodipine 2.5 mg Tablet 2.5 mg PO DAILY RF: 0 docusate sodium 100 mg Capsule 300 mg PO DAILY RF: 0 dicyclomine 10 mg Capsule 20 mg PO Q6 PRN (Reason: Bladder Spasms) RF: 0 Xtandi 40 mg capsule 160 mg PO DAILY RF: 0 PreserVision AREDS-2 250-90-40-1 mg Capsule 2 tab PO DAILY RF: 0 amiloride 5 mg tablet 2.5 mg PO DAILY Qty: 30 RF: 0 calcitriol 0.5 mcg capsule 1.5 mcg PO DAILY 30 Days Qty: 90 RF: 0 magnesium oxide 400 mg magnesium capsule 400 mg PO DAILY Qty: 30 RF: 0 [id number] 250 mg tablet 1 tab PO QID 30 Days Qty: 120 RF: 0 potassium chloride [K-Tab] 20 mEq tablet extended release 40 meq PO BID 30 Days Qty: 120 RF: 0 Lupron Depot (6 Month) 45 mg syringe kit 0 mg IM .[id number] RF: 0 sennosides [Senna Lax] 8.6 mg Tablet 17.2 mg PO DAILY RF: 0 acetaminophen [Tylenol Extended Release] 650 mg Tablet Extended Release 650 mg PO Q8H PRN (Reason: Pain) RF: 0 oxycodone 5 mg Tablet 10 mg PO Q4H PRN (Reason: Pain) RF: 0 ondansetron 4 mg Film 4 mg PO Q6H PRN (Reason: Nausea) RF: 0 Discharge Problem: Pneumonia Qualifiers: Pneumonia type: due to unspecified organism Laterality: unspecified laterality Lung location: unspecified part of lung Qualified Code(s): J18.9 - Pneumonia, unspecified organism
--- NOTE | 2020-10-29 15:45 | XRay Report ---
XR chest 1V portable CLINICAL HISTORY: Weakness COMPARISON STUDY: 09/16/2020 FINDINGS: The study is rotated. There are old rib deformities. Heart is normal in size. There is aort ic tortuosity/ectasia. There are postsurgical changes involving the right clavicle. Since the prior s tudy, the patient has developed an opacity at the right medial lung base. Findings are suspicious for a pneumonia. Clinical and radiographic follow-up is recommended.[There is no failure. There are no p leural effusions. IMPRESSION: 1. Interval development of a focal opacity at the right medial lung base. Given the rapid appearance of this finding, it is viewed as suspicious for a pneumonia. Clinical and radiographic follow-up are recommended ACT 112: Negative or not required by law. Electronically signed by: Jerry Zepeda M.D. 10/29/2020 3:44 PM
[2020-10-29 16:19] LABS: Appearance Urine Cloudy (Clear); Bilirubin Urine 1+ (Negative); Blood Urine 2+ (Negative); Color Urine Brown; Glucose Urine UA Negative (Negative); Ketones Urine Trace (Negative); Leukocyte Esterase Urine 1+ (Negative); Nitrite Urine Negative (Negative); Protein Urine 3+ (Negative); Urobilinogen Urine Positive (Negative); pH Urine 8.5 (4.5-7.5)
[2020-10-29 16:29] LABS: Bacteria Urine 4+ (Negative); RBC Urine >30 /hpf (0-4); WBC Urine >30 /hpf (0-5)
[2020-10-29 16:30] LABS: Triple Phosphate Crystal Urine Present (None Prsent)
--- NOTE | 2020-10-29 16:40 | CT Scan Report ---
CT head/brain wo con CLINICAL HISTORY: Acute change in mental status COMPARISON STUDY: No previous studies for comparison. TECHNIQUE: Axial CT of the brain is performed from the vertex to the skull base. IV contrast was not administered for this examination. A dose lowering technique was utilized adhering to the principles of ALARA. CT DOSE: 1035.81 mGycm FINDINGS: No intra or extra-axial mass lesions are visualized. There is no CT evidence of acute cortical infarc tion. There is no evidence of midline shift. There is no acute hemorrhage. No calvarial fractures ar e visualized. There are patchy white matter hypodensities likely on a small vessel basis. There is a left frontal i nfarct in the region of the jaquez radiata. There is focal white matter edema within the left frontal white matter. While likely on a chronic ischemic basis, and underlying lesion cannot be excluded wit h certainty. There is no evidence of pathologic ventricular dilatation. There is no evidence of acute sinusitis. There are postsurgical changes involving the left globe IMPRESSION: 1. No evidence of acute hemorrhage 2. 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 Asymmetric white matter edema within the left frontal lobe. Statistically, this is on a chronic is chemic basis. It is not possible with certainty to exclude an underlying lesion on this noncontrast s tudy. If further evaluation is deemed clinically appropriate, an MRI the brain without and with contr ast would be the most appropriate study in follow-up. ACT 112: Negative or not required by law. Electronically signed by: Jerry Zepeda M.D. 10/29/2020 4:39 PM
[2020-10-29 16:47] LABS: Basophils # (auto) 0.01 K/uL (0-0.2); Basophils % (auto) 0.1 %; Hematocrit (blood only) 39.5 % (42-52); Hemoglobin 13.4 g/dL (14.0-18.0); Immature Granulocytes # (auto) 0.08 K/uL (0.00-0.02); Immature Granulocytes % (auto) 0.6 %; Lymphocytes % (auto) 5.4 %; Mean Corpuscular Hemoglobin 30.9 pg (25-34); Mean Corpuscular Hgb Conc 33.9 g/dL (32-36); Mean Corpuscular Volume 91.2 fL (80-100); Mean Platelet Volume 11.6 fL (7.4-10.4); Monocytes # (auto) 0.49 K/uL (0.11-0.59); Monocytes % (auto) 3.8 %; Neutrophils # (auto) 11.64 K/uL (1.4-6.5); Neutrophils % (auto) 90.1 %; Nucleated RBC # (auto) 0.03 K/uL (0-0); Nucleated RBC % (auto) 0.2 %; Platelet Count 184 K/uL (130-400); RDW Coefficient of Variation 17.4 % (11.5-14.5); RDW Standard Deviation 57.6 fL (36.4-46.3); Red Blood Count 4.33 M/uL (4.7-6.1); White Blood Count 12.92 K/uL (4.8-10.8)
--- NOTE | 2020-10-29 16:48 | Electrocardiogram Report ---
Test Reason : Blood Pressure : / mmHG Vent. Rate : 110 BPM Atrial Rate : 110 BPM P-R Int : 114 ms QRS Dur : 066 ms QT Int : 346 ms P-R-T Axes : 054 023 045 degrees QTc Int : 468 ms Sinus tachycardia with Premature atrial complexes with Aberrant conduction Otherwise normal ECG When compared with ECG of 02-OCT-2020 09:40, Aberrant conduction is now Present Vent. rate has increased BY 36 BPM Criteria for Inferior infarct are no longer Present Confirmed by Gurpreet Purcell ([id number]) on 10/29/2020 4:47:47 PM Referred By: Rebecca Vicente Confirmed By:Gurpreet Purcell
[2020-10-29 16:57] LABS: INR 1.5 (0.9-1.1); Prothrombin Time 14.8 Seconds (9.0-12.0)
[2020-10-29 17:06] LABS: Albumin Level 1.8 gm/dl (3.4-5.0); BUN Creatinine Ratio 31.7 (10-20); Calcium 6.5 mg/dl (8.5-10.1); Creatinine Clr Calc Pharmacy 72.4 ml/min; Est GFR (African American) 102.8; Est GFR (Non-African American) 88.7; Potassium 4.2 mmol/L (3.5-5.1)
[2020-10-29] MEDS ORDERED: VANCOMYCIN HCL 1,750 MG in SODIUM CHLORIDE 0.9% 500 ML IV ONE (17:14)
[2020-10-29] MEDS ORDERED: VANCOMYCIN CONSULT ACTIVE PRN (17:14)
[2020-10-29] MEDS ORDERED: CEFEPIME 2,000 MG/20 ML VIAL IV STA (17:14)
[2020-10-29 17:15] LABS: Albumin Globulin Ratio 0.6 (0.9-2); Bilirubin,Total 0.8 mg/dl (0.2-1); Globulin 3.2 gm/dl (2.5-4.0); Troponin I 0.067 ng/ml (0-0.045)
[2020-10-29 18:33] LABS: Influenza A virus by PCR Negative (Neg); Influenza B virus by PCR Negative (Neg); RSV by PCR Negative (Neg); SARS CoV2 RNA(COVID-19) InHosp NEGATIVE (Negative)
[2020-10-29] MEDS ORDERED: SODIUM CHLORIDE 0.9% 1000ML 1,000 ML IV ONE (19:40)
[2020-10-29] MEDS ORDERED: CALCIUM GLUCONATE 10% 2,000 MG in SODIUM CHLORIDE 0.9% 50 ML IV ONE (19:45)
--- NOTE | 2020-10-29 20:10 | History & Physical Report ---
Date of Service October 29, 2020 Assessment & Plan (1) Pneumonia: Right middle lower lung pneumonia - Cough, WBC 12, no oxygen requirement - NLR 6:1, laccate pending - Continue Cefepime and Vancomycin - Possible aspiration component (2) Acute UTI: Loredo changed last on 06April- meatus with dried dark crust around Loredo tube - Remove and change out indwelling Loredo (3) Multi-organ system dysfunction: Patient with multiple organs showing signs of injury - Poor hydration and poor nutrition likely playing a role as well - LFT"s elevated with INR 1.5 - BUN double from previous admission , [employer] with 0.3 increase - Troponin 0.607 - likley type II demand as no dynamic changes - Support with IV rehydration with LR and then change to hypotonic fluid for free water replacement if unable to keep up with oral demands - Follow biomarkers for response (4) Acute hypernatremia: Likely from lack of free water and continue diuresing - Amiloride on hold - 2.25 L free water deficit- NA 149 Chloride 119 - This should correct easily - He should drink to thirst and this should correct (5) Dehydration: As above - This is also likely contributing to his acute increase in his LFT's and other Organ dysfunction - Clears for tonight and with improving mental status add back supplemental shakes (6) Elevated liver enzymes: As above - Recheck CMP in the morning- should come down with hydration (7) Prostate cancer: No acute changes - Restart Xtandi in morning if improved organ perfusion (8) Hypocalcemia: Chronic - 2 Gram Calcium gluconate - IVF - restart calcitriol if desired (9) Delirium: As above- - when more appropriate and able to get MRI may be warranted for CT of head findings as well - No acute needs - Continue his asa and statin History of Present Illness Primary Care Provider: Cinthia Fernandez at [place] 80 YOM with past medical history of metastatic prostate cancer, chronic indwelling Loredo catheter, depression, CVA, HTN, HLD, . Patient has hormone refractory metastatic prostate cancer originally diagnosed in 2014. Started on Xtandi 160 mg PO daily. He had been admitted for lower extremity edema requiring diuresis as well as electrolyte abnormalities. He was discharged on 09/04/20 and readmitted in 09/16/20 and then was discharged on 10/03/20 to [facility]. He was brought to the emergency room today from his Oncologist office, where he was for his follow up appointment. He was confused more than his baseline. In the emergency room he had a head CT scan done and a CXR. CXR noted for right focal opacity that is new from his previous imaging. He is also noted to have multi organ dysfunction with electrolyte abnormalities, as well as a troponin of 0.067 without any dynamic ECG changes. He is confused as to where he is or how he got here. Patient will be admitted for secondary to pneumonia and urinary. Loredo catheter will be changed out and further investigate his neurological status. Will get blood cultures, VBG, and lactate. Medication compliance with ability to take all his medications and patient functional status likely playing a large role to his frequent admissions and abnormalities. Allergies Allergy/AdvReac Type Severity Reaction Status Date / Time No Known Allergies Allergy Unverified 10/29/20 18:04 Home Medications Medication Instructions Recorded Confirmed Type Boost 1 ea PO DAILY #0 01/10/18 10/29/20 History Fiber (psyllium husk-sugar) 1 tsp PO DAILY #0 01/10/18 10/29/20 History aspirin [Aspirin Low Dose] 81 mg PO DAILY #0 01/10/18 10/29/20 History atorvastatin 40 mg PO QAM #0 tab 01/10/18 10/29/20 History loratadine 10 mg PO DAILY PRN #0 tab 01/10/18 10/29/20 History polyethylene glycol 3350 [Miralax] 17 g PO DAILY PRN #527 g 01/10/18 10/29/20 History ferrous sulfate 325 mg (65 mg 325 mg PO DAILY 01/08/20 10/29/20 History iron) tablet metoprolol tartrate 25 mg tablet 25 mg PO DAILY tab 01/08/20 10/29/20 History omeprazole 20 mg capsule,delayed 20 mg PO DAILY 01/08/20 10/29/20 History release paroxetine HCl 20 mg tablet 20 mg PO HS 01/08/20 10/29/20 History prednisone 5 mg tablet 5 mg PO DAILY 01/08/20 10/29/20 History oxybutynin chloride 5 mg tablet 5 mg PO BID PRN #60 tab 06/17/20 10/29/20 Rx Lupron Depot (6 Month) 0 mg IM .[id number] 09/02/20 10/29/20 History PreserVision AREDS-2 2 tab PO DAILY 09/16/20 10/29/20 History Xtandi 160 mg PO DAILY 09/16/20 10/29/20 History amlodipine 2.5 mg PO DAILY 09/16/20 10/29/20 History dicyclomine 20 mg PO Q6 PRN 09/16/20 10/29/20 History docusate sodium 300 mg PO DAILY 09/16/20 10/29/20 History amiloride 2.5 mg PO DAILY #30 tab 10/03/20 10/29/20 Rx calcitriol 1.5 mcg PO DAILY 30 Days #90 cap 10/03/20 10/29/20 Rx magnesium oxide 400 mg PO DAILY #30 cap 10/03/20 10/29/20 Rx potassium chloride [K-Tab] 40 meq PO BID 30 Days #120 tab 10/03/20 10/29/20 Rx sod phos di, mono-K phos mono 1 tab PO QID 30 Days #120 tab 10/03/20 10/29/20 Rx [F-Cdey-Gtbgyls] acetaminophen [Tylenol Extended 650 mg PO Q8H PRN 10/29/20 10/29/20 History Release] ondansetron 4 mg PO Q6H PRN 10/29/20 10/29/20 History oxycodone 10 mg PO Q4H PRN 10/29/20 10/29/20 History sennosides [Senna Lax] 17.2 mg PO DAILY 10/29/20 10/29/20 History Past Med/Surg History Medical History Acute UTI Prostate cancer (07/14/13) "Development of urinary difficulty, urinary retention, flaccid bladder, indwelling Loredo catheter PSA elevated at 15.360 July 14, 2013 Status post ultrasound core biopsies July 31, 2014 Adenocarcinoma [place] 3+3, 4+3, and 4+5 Initiation of Lupron therapy which continued until June 2017 Missed injection PSA radha to 89 Restart of Lupron therapy Recheck PSA September 29, 2017 0.390 PSA November 16, 2017 0.072" Surgical History H/O eye surgery History of prostate biopsy Hx of tonsillectomy Family History Sister Diabetes Nephrolithiasis Cancer Other No significant family history Social History Smoking Status: Never smoker Second Hand Exposure: No; Hx Alcohol Use: No Hx Substance Use: No Preferred Language: Vincentian Communication Ability: Impaired Communication Ability Comment: garbled speech, hx of stroke [employer] Required: No Beliefs That Will Affect Care: None marital status: Single Current Living Situation: [facility] Current Living Situation Comment: [facility] current occupational status: retired Feels Safe at Home: Yes Assistive Devices: Walker Review of Systems Review of Systems: REVIEW OF SYSTEMS not able to be completed secondary to patient mental status - Most of information gathered was from chart review from most recent inpatient stays. Physical Exam Physical Exam: PHYSICAL EXAM: General: awake, alert, no apparent distress Head: Normocephalic, atraumatic ENT: PERRLA, tongue and mucous membranes dry Neuro: Alert to person, speech confused and slowed, strength intact bilaterally 4/5, sensation intact and equal all extremities, no focal deficits as he is moving all extremities Chest: equal rise and fall of the chest, no accessory muscle use, no heaves or thrills, scattered rhonchi throughout, decreased in the right lower lobe on auscultation, on room air Cardiac: Regular rate and rhythm, telemetry reviewed with sinus tach and occasional PVC, skin warm dry, cap refill <3 seconds, peripheral pulses +2 no JVD, 3/5 systolic murmur beast heard at axillae, trace lower extremity edema. GI: NABS x 4 quadrants, soft, nontender to palpation, no rebound, guarding or tenderness : Loredo to gravity draining dark urine, no pain to bladder with palpation. Extremities: No erythema, calfs nontender to palpation Psych: Normal mood and affect Skin: no rash or erythema, bruising to arm and hands Results & Data Results & Data ([facility]) Vital Signs (Past 12 Hours) Vital Signs Temp Pulse Resp BP Pulse Ox 10/29/20 18:01 24 110/67 93 10/29/20 17:35 87 23 102/65 93 10/29/20 16:50 90 22 93 10/29/20 16:09 94 10/29/20 16:00 102 H 20 107/78 95 10/29/20 14:59 36.8 C 80 20 101/59 L 96 Laboratory Results Abnormal lab results 10/29/20 10/29/20 10/29/20 Range/Units 16:00 16:13 16:13 WBC 12.92 H (4.8-10.8) K/uL RBC 4.33 L (4.7-6.1) M/uL Hgb 13.4 L (14.0-18.0) g/dL Hct 39.5 L (42-52) % RDW Std Deviation 57.6 H (36.4-46.3) fL RDW Coeff of Pardeep 17.4 H (11.5-14.5) % MPV 11.6 H (7.4-10.4) fL Neut # (Auto) 11.64 H (1.4-6.5) K/uL Lymph # (Auto) 0.70 L (1.2-3.4) K/uL Immature Gran # (Auto) 0.08 H (0.00-0.02) K/uL Absolute Nucleated RBC 0.03 H (0-0) K/uL PT 14.8 H (9.0-12.0) Seconds INR 1.5 H (0.9-1.1) Sodium (136-145) mmol/L Chloride (98-107) mmol/L BUN (7-18) mg/dl BUN/Creatinine Ratio (10-20) Glucose (70-99) mg/dl Calcium (8.5-10.1) mg/dl AST (15-37) U/L ALT (12-78) U/L Alkaline Phosphatase (45-117) U/L Troponin I (0-0.045) ng/ml Total Protein (6.4-8.2) gm/dl Albumin (3.4-5.0) gm/dl Albumin/Globulin Ratio (0.9-2) Urine Appearance Cloudy A (Clear) Urine pH 8.5 H (4.5-7.5) Urine Protein 3+ H (Negative) Urine Ketones Trace H (Negative) Urine Blood 2+ H (Negative) Urine Bilirubin 1+ H (Negative) Urine Urobilinogen Positive H (Negative) Ur Leukocyte Esterase 1+ H (Negative) Urine RBC >30 H (0-4) /hpf Urine WBC >30 H (0-5) /hpf Ur Epithelial Cells 10-20 H (0-5) /lpf Triple Phos Crystals Present A (None Prsent) Urine Bacteria 4+ H (Negative) Hyaline Casts 5-10 H (0-5) /lpf 10/29/20 Range/Units 16:13 WBC (4.8-10.8) K/uL RBC (4.7-6.1) M/uL Hgb (14.0-18.0) g/dL Hct (42-52) % RDW Std Deviation (36.4-46.3) fL RDW Coeff of Pardeep (11.5-14.5) % MPV (7.4-10.4) fL Neut # (Auto) (1.4-6.5) K/uL Lymph # (Auto) (1.2-3.4) K/uL Immature Gran # (Auto) (0.00-0.02) K/uL Absolute Nucleated RBC (0-0) K/uL PT (9.0-12.0) Seconds INR (0.9-1.1) Sodium 149 H (136-145) mmol/L Chloride 119 H (98-107) mmol/L BUN 23 H (7-18) mg/dl BUN/Creatinine Ratio 31.7 H (10-20) Glucose 148 H (70-99) mg/dl Calcium 6.5 L (8.5-10.1) mg/dl AST 138 H (15-37) U/L ALT 83 H (12-78) U/L Alkaline Phosphatase 224 H (45-117) U/L Troponin I 0.067 H* (0-0.045) ng/ml Total Protein 5.0 L (6.4-8.2) gm/dl Albumin 1.8 L (3.4-5.0) gm/dl Albumin/Globulin Ratio 0.6 L (0.9-2) Urine Appearance (Clear) Urine pH (4.5-7.5) Urine Protein (Negative) Urine Ketones (Negative) Urine Blood (Negative) Urine Bilirubin (Negative) Urine Urobilinogen (Negative) Ur Leukocyte Esterase (Negative) Urine RBC (0-4) /hpf Urine WBC (0-5) /hpf Ur Epithelial Cells (0-5) /lpf Triple Phos Crystals (None Prsent) Urine Bacteria (Negative) Hyaline Casts (0-5) /lpf Diagnostic Findings Chest X-Ray 10/29/20 15:17 XR chest 1V portable CLINICAL HISTORY: Weakness COMPARISON STUDY: 09/16/2020 FINDINGS: The study is rotated. There are old rib deformities. Heart is normal in size. There is aortic tortuosity/ectasia. There are postsurgical changes involving the right clavicle. Since the prior study, the patient has developed an opacity at the right medial lung base. Findings are suspicious for a pneumonia. Clinical and radiographic follow-up is recommended.[There is no failure. There are no pleural effusions. IMPRESSION: 1. Interval development of a focal opacity at the right medial lung base. Given the rapid appearance of this finding, it is viewed as suspicious for a pneumonia. Clinical and radiographic follow-up are recommended Electronically signed by: Jerry Zepeda M.D. 10/29/2020 3:[address] 10/29/20 15:28 CT head/brain wo con CLINICAL HISTORY: Acute change in mental status COMPARISON STUDY: No previous studies for comparison. TECHNIQUE: Axial CT of the brain is performed from the vertex to the skull base. IV contrast was not administered for this examination. A dose lowering technique was utilized adhering to the principles of ALARA. CT DOSE: 1035.81 mGycm FINDINGS: No intra or extra-axial mass lesions are visualized. There is no CT evidence of acute cortical infarction. There is no evidence of midline shift. There is no acute hemorrhage. No calvarial fractures are visualized. There are patchy white matter hypodensities likely on a small vessel basis. There is a left frontal infarct in the region of the jaquez radiata. There is focal white matter edema within the left frontal white matter. While likely on a chronic ischemic basis, and underlying lesion cannot be excluded with certainty. There is no evidence of pathologic ventricular dilatation. There is no evidence of acute sinusitis. There are postsurgical changes involving the left globe IMPRESSION: 1. No evidence of acute hemorrhage 2. 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 Asymmetric white matter edema within the left frontal lobe. Statistically, this is on a chronic ischemic basis. It is not possible with certainty to exclude an underlying lesion on this noncontrast study. If further evaluation is deemed clinically appropriate, an MRI the brain without and with contrast would be the most appropriate study in follow-up. Electronically signed by: Jerry Zepeda M.D. 10/29/2020 4:39 PM Medications Administered Discontinued Medications Sodium Chloride (Nss 1000ml) 1,000 mls @ 999 mls/hr IV .Q1H1M STA Stop: 10/29/20 16:17 Last Admin: 10/29/20 16:10 Dose: 999 mls/hr Documented by: [id number] Vancomycin HCl 1,750 mg/ (Sodium Chloride) 535 mls @ 200 mls/hr IV NOW ONE Stop: 10/29/20 19:54 Last Admin: 10/29/20 17:56 Dose: 200 mls/hr Documented by: [id number] Cefepime HCl (Maxipime) 2,000 mg in 20 mls @ 5 mls/min IV NOW STA; Protocol Stop: 10/29/20 17:17 Last Admin: 10/29/20 17:33 Dose: 5 mls/min Documented by: [id number] Home Medications Boost 1 ea PO DAILY #0 01/10/18 [History Confirmed 10/29/20] Fiber (psyllium husk-sugar) 1 tsp PO DAILY #0 01/10/18 [History Confirmed 10/29/20] aspirin [Aspirin Low Dose] 81 mg PO DAILY #0 01/10/18 [History Confirmed 10/29/20] atorvastatin 40 mg PO QAM #0 tab 01/10/18 [History Confirmed 10/29/20] loratadine 10 mg PO DAILY PRN #0 tab 01/10/18 [History Confirmed 10/29/20] polyethylene glycol 3350 [Miralax] 17 g PO DAILY PRN #527 g 01/10/18 [History Confirmed 10/29/20] ferrous sulfate 325 mg (65 mg iron) tablet 325 mg PO DAILY 01/08/20 [History Confirmed 10/29/20] metoprolol tartrate 25 mg tablet 25 mg PO DAILY tab 01/08/20 [History Confirmed 10/29/20] omeprazole 20 mg capsule,delayed release 20 mg PO DAILY 01/08/20 [History Confirmed 10/29/20] paroxetine HCl 20 mg tablet 20 mg PO HS 01/08/20 [History Confirmed 10/29/20] prednisone 5 mg tablet 5 mg PO DAILY 01/08/20 [History Confirmed 10/29/20] oxybutynin chloride 5 mg tablet 5 mg PO BID PRN #60 tab 06/17/20 [Rx Confirmed 10/29/20] Lupron Depot (6 Month) 0 mg IM .[id number] 09/02/20 [History Confirmed 10/29/20] PreserVision AREDS-2 2 tab PO DAILY 09/16/20 [History Confirmed 10/29/20] Xtandi 160 mg PO DAILY 09/16/20 [History Confirmed 10/29/20] amlodipine 2.5 mg PO DAILY 09/16/20 [History Confirmed 10/29/20] dicyclomine 20 mg PO Q6 PRN 09/16/20 [History Confirmed 10/29/20] docusate sodium 300 mg PO DAILY 09/16/20 [History Confirmed 10/29/20] amiloride 2.5 mg PO DAILY #30 tab 10/03/20 [Rx Confirmed 10/29/20] calcitriol 1.5 mcg PO DAILY 30 Days #90 cap 10/03/20 [Rx Confirmed 10/29/20] magnesium oxide 400 mg PO DAILY #30 cap 10/03/20 [Rx Confirmed 10/29/20] potassium chloride [K-Tab] 40 meq PO BID 30 Days #120 tab 10/03/20 [Rx Confirmed 10/29/20] sod phos di, mono-K phos mono [P-Zlva-Xycqwfm] 1 tab PO QID 30 Days #120 tab 10/03/20 [Rx Confirmed 10/29/20] acetaminophen [Tylenol Extended Release] 650 mg PO Q8H PRN 10/29/20 [History Confirmed 10/29/20] ondansetron 4 mg PO Q6H PRN 10/29/20 [History Confirmed 10/29/20] oxycodone 10 mg PO Q4H PRN 10/29/20 [History Confirmed 10/29/20] sennosides [Senna Lax] 17.2 mg PO DAILY 10/29/20 [History Confirmed 10/29/20] Active Medications Sodium Chloride (Nss 1000ml) 1,000 mls @ 999 mls/hr IV .Q1H1M ONE Stop: 10/29/20 20:40 Miscellaneous Information (Vancomycin Consult Active) 1 ea N/A UD PRN PRN Reason: Consult Stop: 11/28/20 17:13 ECG Additional Comments: Vent. Rate : 110 BPM Atrial Rate : 110 BPM P-R Int : 114 ms QRS Dur : 066 ms QT Int : 346 ms P-R-T Axes : 054 023 045 degrees QTc Int : 468 ms Sinus tachycardia with Premature atrial complexes with Aberrant conduction Otherwise normal ECG When compared with ECG of 02-OCT-2020 09:40, Aberrant conduction is now Present Vent. rate has increased BY 36 BPM Criteria for Inferior infarct are no longer Present Confirmed by Gurpreet Purcell ([id number]) on 10/29/2020 4:47:47 PM Code Status & VTE Plan Code Status CODE: FULL VTE: SCDs, Heparin sub q VTE Prophylaxis Plan VTE Prophylaxis will be ordered: Yes Supervising Physician Co-Signing Physician Notes ARTICULATION OFFICER Supervision note: I have personally seen and examined the patient and discussed and verified the townsend points of the history and physical along with the plan with TAYA Ling with the following exceptions and/or additions: This patient is a 80-year-old male with history of metastatic prostate cancer with chronic indwelling Loredo catheter, CVA, depression/anxiety, HTN, hyperlipidemia, and lower extremity edema who presents to the ER from the oncology office for altered mental status, increased pain, and for looking generally unwell. The patient is confused. He was found to have a right-sided pneumonia, significant dehydration and hypernatremia, hypotension, elevated troponin, renal insufficiency and evidence of shock liver. He denied any chest pain or shortness of breath, no abdominal pains. His urine appeared dark in color and cloudy in his Loredo catheter bag. He frequently asked me for a drink of water and when I provided 1, he drank approximately 6 ounces in a ravenous fashion. He has been residing at a longterm since his discharge a month ago. History and ROS reviewed as above Vitals reviewed Gen: Alert, awake, oriented to person, NAD, appears ill HEENT: Anicteric sclerae, EOMI, severely dry mucous membranes, buccal mucosa, and tongue CV: RRR no mgr nl S1S2 Pulm: CTAB no wcr Abd: +BS soft mild tenderness in the suprapubic region, ND no masses or hernias Ext: Trace pitting edema of the legs bilaterally Skin: No rashes, warm/dry Neuro: Generally weak throughout with 4/5 strength in all extremities : Loredo catheter in place draining dark brown cloudy urine Laboratory values reviewed, imaging reviewed, ECG reviewed 80-year-old male here with acute metabolic encephalopathy secondary to dehydration, hypernatremia, and pneumonia. Treat with IV fluid resuscitation, antibiotics as noted above Provide ample access to free water intake With metastatic disease and tumor invading the bladder on recent CT scan abdomen/pelvis Consider palliative care consultation for goals of care discussion PG Care Time/CCT Total # of Minutes Spent Total Time Spent with Patient: Total time spent is greater than 50% in coordination of care (as documented) at patient's floor/unit and/or counseling patient: Coding Level of Care Code 06845 Initial Inpt Care Lvl 3 Diagnoses Pneumonia J18.9 Laterality: unspecified laterality Lung location: unspecified part of lung Pneumonia type: due to unspecified organism Acute UTI N39.0 Multi-organ system dysfunction Acute hypernatremia E87.0 Dehydration E86.0 Elevated liver enzymes R74.8 Prostate cancer C61 Hypocalcemia E83.51 Delirium R41.0 (1) Pneumonia Laterality: unspecified laterality Lung location: unspecified part of lung Pneumonia type: due to unspecified organism Qualified Code(s): J18.9 - Pneumonia, unspecified organism
[2020-10-29 21:36] LABS: Base Excess VBG -1.6 mEq/L; Oxygen Saturation VBG 77.5 %; pH VBG 7.49 (7.36-7.41)
[2020-10-29] MEDS ORDERED: LIDOCAINE 2% JELLY 5 ML TUBE ONE (21:53)
[2020-10-29] MEDS ORDERED: ONDANSETRON INJ 2 MG/ML 2 ML VIAL IV PRN (22:13)
[2020-10-29] MEDS: LACTATED RINGER'S 1,000 ML IV SCH (22:20)
[2020-10-29] MEDS ORDERED: ACETAMINOPHEN 325 MG TAB PO PRN (22:21)
[2020-10-29] MEDS ORDERED: ONDANSETRON 4 MG OD TAB PO PRN (22:22)
[2020-10-29] MEDS ORDERED: LIDOCAINE 2% JELLY 5 ML TUBE EXT ONE (22:25)
[2020-10-29] MEDS: HEPARIN SOD 5,000 UNIT/0.5 ML VIAL SQ SCH (23:56)
[2020-10-30] MEDS: CEFEPIME 2,000 MG in SYRINGE 0 ML IV SCH ×2 (01:04→09:06)
[2020-10-30] MEDS: oxyCODONE HCL IR 5 MG TAB (IMMEDIATE RELEASE) PO PRN (01:16)
[2020-10-30] MEDS ORDERED: OLANZapine ZYDIS 5 MG ORALLY DIS. TAB PO STA (03:12)
[2020-10-30] MEDS ORDERED: OLANZapine ZYDIS 5 MG ORALLY DIS. TAB PO ONE (03:15)
[2020-10-30] MEDS: LACTATED RINGER'S 1,000 ML IV SCH ×2 (05:40→14:09)
[2020-10-30 06:11] LABS: Basophils # (auto) 0.01 K/uL (0-0.2); Basophils % (auto) 0.1 %; Hematocrit (blood only) 40.2 % (42-52); Hemoglobin 13.2 g/dL (14.0-18.0); Immature Granulocytes # (auto) 0.11 K/uL (0.00-0.02); Immature Granulocytes % (auto) 0.8 %; Lymphocytes # (auto) 0.53 K/uL (1.2-3.4); Lymphocytes % (auto) 3.9 %; Mean Corpuscular Hemoglobin 30.1 pg (25-34); Mean Corpuscular Hgb Conc 32.8 g/dL (32-36); Mean Corpuscular Volume 91.6 fL (80-100); Mean Platelet Volume 11.9 fL (7.4-10.4); Monocytes # (auto) 0.58 K/uL (0.11-0.59); Monocytes % (auto) 4.3 %; Neutrophils # (auto) 12.23 K/uL (1.4-6.5); Neutrophils % (auto) 90.9 %; Nucleated RBC # (auto) 0.04 K/uL (0-0); Nucleated RBC % (auto) 0.3 %; Platelet Count 169 K/uL (130-400); RDW Coefficient of Variation 17.6 % (11.5-14.5); RDW Standard Deviation 57.7 fL (36.4-46.3); Red Blood Count 4.39 M/uL (4.7-6.1); White Blood Count 13.46 K/uL (4.8-10.8)
--- NOTE | 2020-10-30 06:30 | Pharmacy Report ---
Pharmacy Abx Initial Consult - Date of Service October 30, 2020 - Pharmacy Dosing Scope Date of Consult: 10/29/20 Consultation requested by: Cody Ling Pharmacy is consulted to continue Vancomycin dosing therapy, order appropriate labs and adjust drug dose/frequency. - Subjective The patient is a 80 year old M admitted on 10/29/20 20:23 with Pneumonia. The patient has been admitted several times in the past few months and then was sent to [facility]. Cody Ling continues both Cefepime and Vancomycin started in the ED on admission to telemetry unit. - Objective Height: 5 ft 5 in Weight: 66 kg Vital Signs (Past 12hrs): Vital Signs Temp Pulse Pulse Resp BP BP Pulse Ox 10/30/20 03:43 36.9 C 117 H 17 103/69 93 10/30/20 00:00 83 10/29/20 23:41 36.5 C 66 23 93/56 L 92 10/29/20 22:34 36.7 C 105 H 18 101/59 L 94 10/29/20 22:26 36.7 C 104 H 18 10/29/20 22:00 68 10/29/20 21:01 110 H 25 H 105/67 10/29/20 20:30 111 H 25 H 89/72 L 10/29/20 20:01 110/57 L 10/29/20 19:30 25 H 105/68 93 10/29/20 19:19 116 H 15 112/68 94 Pulse Ox 10/30/20 03:43 10/30/20 00:00 10/29/20 23:41 10/29/20 22:34 10/29/20 22:26 94 10/29/20 22:00 10/29/20 21:01 10/29/20 20:30 10/29/20 20:01 10/29/20 19:30 10/29/20 19:19 Lab Results (24hrs): Laboratory Tests (24 Hours) 10/30/20 10/29/20 10/29/20 06:01 16:13 16:13 WBC 13.46 H 12.92 H Neut # (Auto) 12.23 H 11.64 H Creatinine 0.72 Est Cr Clr Drug Dosing 72.4 Micro Results: 10/29/20 21:13 Aerobic Blood Culture - Pending Blood Anaerobic Blood Culture - Pending 10/29/20 16:00 Urine Culture - Pending Urine,Clean Catch - Risk Factors for Resistance * Resident in a senior living or extended-care facility * Hospitalization for 48 hours or more within the past 90 days * Immunocompromised (chronic steroid therapy, chemotherapy, immunomodulators) * Antimicrobial use within the last 90 days - Assessment & Plan Assessment 80 year old M [] Plan [] for treatment of [Indication] Vancomycin IV * Estimated PK Parameters: Vd [] L/kg, Claudio [] hr-1, t1/2 [] hr * Loading dose: [] mg ([] mg/kg) * Maintenance dose: [] mg IV ([] mg/kg) every [] hours * Goal trough level for [indication] : [] to [] mcg/mL * Trough/Random level ordered for []/[]/[] * A less than traditional dose and/or extended dosing interval has/have been selected due to likelihood of drug accumulation in obese patient/patient with h/o CKD. Piperacillin/tazobactam * [] g bolus administered over 30 minutes, then [] g IV extended infusion every 8 hours for CrCl greater than 20 mL/min OR every 12 hours for CrCl 20 mL/min or less and dialysis. * Aggressive dosing selected due to critically ill status/BMI 35 or more/history of cystic fibrosis. Tobramycin/Gentamicin/Amikacin * Patient meets criteria for extended-interval aminoglycoside dosing per the [facility] nomogram * Dose: [] mg (7 mg/kg) or (15 mg/kg) IV every [] hours * Dosage based on adjusted body weight for patients weighing > 120% of ideal body weight. * Random level ordered for 6-14 hours after the start of the infusion to ensure dosing interval is appropriate. Tobramycin/Gentamicin/Amikacin * Patient is not a candidate for extended-interval dosing due to age/CrCl less than 20 mL/min/end stage renal disease/dialysis/fluctuating kidney function/treatment of Enterococcal endocarditis OR altered pharmacokinetics in the setting of /ascites/significant campos/cystic fibrosis. * Dose: [] mg ([] mg/kg) IV every [] hours * Dosage based on adjusted body weight for patients weighing > 120% of ideal body weight. * Goal trough level for [indication] : [] to [] mcg/mL * Goal peak level for [indication] : [] to [] mcg/mL * Peak and trough level ordered for []/[]/[] around the [] dose. Pharmacy will continue to follow and will adjust dose/frequency as necessary. Thank you.
[2020-10-30 06:48] LABS: INR 1.5 (0.9-1.1); Prothrombin Time 15.2 Seconds (9.0-12.0)
[2020-10-30 06:52] LABS: Albumin Level 1.9 gm/dl (3.4-5.0); BUN Creatinine Ratio 36.9 (10-20); Bilirubin Direct 0.4 mg/dl (0-0.2); C Reactive Protein 14.3 mg/dl (0-0.29); Calcium 7.3 mg/dl (8.5-10.1); Creatinine Clr Calc Pharmacy 75.5 ml/min; Est GFR (African American) 104.6; Est GFR (Non-African American) 90.3; Potassium 4.2 mmol/L (3.5-5.1)
[2020-10-30 06:55] LABS: Total Protein 5.3 gm/dl (6.4-8.2)
[2020-10-30] MEDS ORDERED: VANCOMYCIN HCL 1,000 MG in SODIUM CHLORIDE 0.9% 250 ML IV SCH (08:00)
[2020-10-30] MEDS: HEPARIN SOD 5,000 UNIT/0.5 ML VIAL SQ SCH (08:16)
[2020-10-30] MEDS ORDERED: ASPIRIN 81 MG ECTAB PO SCH (09:00)
[2020-10-30] MEDS ORDERED: CALCITRIOL 0.25 MCG CAPSULE PO SCH (09:00)
[2020-10-30] MEDS ORDERED: ATORVASTATIN 40 MG TAB PO SCH (09:00)
[2020-10-30 10:11] LABS: Base Excess ABG -4.9 mEq/L (-9-1.8); HCO3 ABG 16 mmol/L (19-24); Oxygen Saturation ABG 95.7 % (90-95); PCO2 ABG 21 mmHg (35-46); PO2 ABG 70 mmHg (80-95)
[2020-10-30 10:20] LABS: Allen Test Pos (Pos); pH ABG 7.51 (7.35-7.45)
[2020-10-30] MEDS ORDERED: MoRPHine SULFATE 2 MG/ML CARP IV STA ×2 (10:30→15:56)
[2020-10-30] MEDS ORDERED: OPTIRAY 350 500ml IV ONE (12:02)
--- NOTE | 2020-10-30 12:36 | CT Scan Report ---
CT angio chest PE protocol CT DOSE: 412.31 mGy.cm HISTORY: 80 years-old Male with PE. Acute shortness of breath. Pulmonary nodule with history of pro state cancer TECHNIQUE: Multiple CTA images of the chest were obtained after the intravenous administration of 94 ml Optiray. Coronal and sagittal MIPS were obtained from the axial data set and were submitted for Hotelements. All measurements were obtained according to NASCET criteria. A dose lowering technique was ut ilized adhering to the principles of ALARA. COMPARISON: Chest radiograph 10/29/2020, CT abdomen and pelvis 09/03/2020, Chest CT 05/26/2020, PET CT FINDINGS: CTA: The heart is upper limits of normal in size. Trace pericardial effusion. Mild coronary artery calcifi cations. No thoracic aortic aneurysm or dissection. Descending thoracic aortic tortuosity. The pulmon heladio artery is suboptimally evaluated secondary to respiratory motion artifact. No filling defects deng ntified to suggest thromboembolic disease. CT CHEST: No thyroid nodule. No adenopathy. Small to moderate size layering pleural effusions. No pneumothorax. Study is limited secondary to respiratory motion artifact and patient positioning. Dependent left kaila ng base opacities suggests compressive atelectasis. Scattered bilateral solid pulmonary nodules measu ring up to 4 mm appear unchanged from prior, most pronounced in the lung bases. Focal consolidation o f the basal right lower lobe correlates with the radiographic abnormality seen on study same day. The re is adjacent mucous plugging. Additional scattered groundglass and consolidative opacities are note d within the dependent right upper, middle and lower lobes. Ill-defined area of architectural distort ion measuring 1 cm within the posterior segment right upper lobe is obscured by consolidation. No pneumoperitoneum. Gaseous distention of the colon. Mild generalized body wall edema. Degenerative changes of the spine, pelvis and hips. Scattered sclerotic metastasis redemonstrated. No new or progr essive lesions identified. No acute pathologic fracture. ORIF hardware of the right clavicle. IMPRESSION: 1. No pulmonary emboli. 2. Small to moderate layering pleural effusions with dependent groundglass and consolidative opacitie s of the right upper, middle and lower lobes. There is dense consolidation of the right lower lobe wi th adjacent mucous plugging. Findings are suggestive of pneumonia versus aspiration pneumonitis. 3. Scattered bilateral solid pulmonary nodules measuring up to 4 mm are unchanged from comparison. 4. No adenopathy. 5. Multifocal sclerotic metastatic disease redemonstrated. 6. Additional findings as above. ACT 112: Negative or not required by law. The above report was generated using voice recognition software. It may contain grammatical, syntax o r spelling errors. Electronically signed by: Michael Madera M.D. 10/30/2020 12:35 PM
--- NOTE | 2020-10-30 12:47 | Magnetic Resonance Report ---
MRI OF THE BRAIN WITHOUT CONTRAST CLINICAL HISTORY: Acute change in mental status. Concern over intracranial metastasis. COMPARISON STUDY: Noncontrast head CT dated 10/29/2020. FINDINGS: The study was significantly limited from a technical standpoint. The patient was unable to tolerate t he plan sequence. The examination consists of sagittal T1 axial diffusion axial T2 and axial T1-weigh riccardo images. The study is degraded by motion artifact. No definite masses are visualized however there is unexplained left hemispheric white matter edema. R eturn for repeat imaging including contrast-enhanced images are recommended when the patient is clini deya able to tolerate the study. Axial diffusion-weighted images reveal no evidence of acute or subacute infarction. There is no evidence of ventricular dilatation. Proton density T2-weighted and FLAIR images reveal unexplained left hemispheric edema. There is an ol d deep white matter left periventricular infarct. There are additional scattered foci of increased T2 signal likely a small vessel basis. There are foci of increased T2 signal within the right mastoid likely infectious/inflammatory. Postsurgical changes involve the left globe. IMPRESSION: 1. Markedly limited study from a technical standpoint. 2. The patient was unable to tolerate the entire study. No post contrast images were able to be perfo rmed 3. Unexplained mild left hemispheric white matter edema. Return for repeat imaging including contrast -enhanced images are recommended when the patient is clinically able to tolerate the study 4. No evidence of acute or subacute infarction 5. Inflammatory changes within the right mastoid ACT 112: Negative or not required by law. Electronically signed by: Jerry Zepeda M.D. 10/30/2020 12:46 PM
--- NOTE | 2020-10-30 13:07 | Palliative Care Consultation ---
Date of Consultation October 30, 2020 Assessment & Plan (1) Palliative care encounter: Mr. France is a 80 year old male who presented to the [facility] ED from Dr. Mix, his oncologists office as he was having increased confusion. Upon arrival, a chest CT and CXR revealed new opacities. Unfortunately, this gentleman was diagnosed with Metastatic Prostate cancer in 2014 and he has been managed with PO Xtandi. He has had recurrent admissions to the hospital, in August 2020 and also September 2020 with his most recent hospital stay leading to a rehabilitation stay. He is currently being treated with MODS and electrolyte abnormalities. Additional PMH include: depression, CVA, HTN, and HLD. Palliative Medicine was consulted to discuss goals of care. I met with Mr. France who was lying in his bed. He was able to open his eyes, smile and follow simple commands like lift his arms and wiggle his feet. He was able to answer simple questions with speaking slowly. He was able to tell me he was having pain in his abdomen. When we talked about why he was here, and what aggressive vs conservative measures looked like, he was able to say "yes, I would like to shift to more comfort plan". I asked him if he wanted his sister, Jennyfer, to be his decision maker and he said "sure". His brother lives in [facility]. There are a few siblings, Jnenyfer is the youngest. I did reach out to his sister, Jennyfer at [phone] and was able to talk with her at length. She described that she has had conversation with her brother about not doing chemo treatment but it has been challenging having conversation with him due to covid visitation restriction, etc. that the conversation never really went anywhere. She describes that this has been a slippery slope with his increased hospitalizations. I discussed him returning to [facility] with Hospice services. Understandably, she would like Dr. Mix's input. I did message Dr. Mix through [facility] since he saw the patient in his office prior to him coming to the ED. He suggested that he has really declined over the past month and a half and is in support of a hospice transition. I relayed this information to Jennyfer who is extremely relieved for him to return to [facility] with Hospice Services. She expressed how challenging it has been with COVID and no visitation but knows things have not been moving in the right direction. POLST completed, see below for details. For now, continue current medications. He does have Roxicodone 10 mg PO Q4 PRN and he has utilized one dose over the past 24 hours. Upon discharge, would like to transition to more comfort focused approach and discontinue current non comfort focused medications. The above has been discussed with the Hospitalists, nursing and case management department. Thanks for involving palliative medicine with this patient. (2) Multi-organ system dysfunction: (3) Prostate cancer: (4) Dehydration: (5) CVA, old, aphasia: (6) POLST (Physician Orders for Life-Sustaining Treatment): POLST completed over the phone with the pt sister/POA Jennyfer Mathias indicating DNR/DNI, MERCERIZER, trial abx and no artificial nutrition/hydration. Original and copy placed on chart. Nursing to provide to transportation team upon discharge. History of Present Illness Reason for Consultation: Goals of care Requesting Physician: Dr. Ji Attending Physician: Najma Rich MD History of Present Illness Mr. France is a 80 year old male who presented to the [facility] ED from Dr. Mix, his oncologists office as he was having increased confusion. Upon arrival, a chest CT and CXR revealed new opacities. Unfortunately, this gentleman was diagnosed with Metastatic Prostate cancer in 2014 and he has been managed with PO Xtandi. He has had recurrent admissions to the hospital, in August 2020 and also September 2020 with his most recent hospital stay leading to a rehabilitation stay. He is currently being treated with MODS and electrolyte abnormalities. Additional PMH include: depression, CVA, HTN, and HLD. Palliative Medicine was c onsulted to discuss goals of care. Please see A/P for further information. Thank you for involving Palliative Medicine with this individual. Allergies Allergy/AdvReac Type Severity Reaction Status Date / Time No Known Allergies Allergy Unverified 10/29/20 18:04 Home Medications Medication Instructions Recorded Confirmed Type Boost 1 ea PO DAILY #0 01/10/18 10/29/20 History Fiber (psyllium husk-sugar) 1 tsp PO DAILY #0 01/10/18 10/29/20 History aspirin [Aspirin Low Dose] 81 mg PO DAILY #0 01/10/18 10/29/20 History atorvastatin 40 mg PO QAM #0 tab 01/10/18 10/29/20 History loratadine 10 mg PO DAILY PRN #0 tab 01/10/18 10/29/20 History polyethylene glycol 3350 [Miralax] 17 g PO DAILY PRN #527 g 01/10/18 10/29/20 History ferrous sulfate 325 mg (65 mg 325 mg PO DAILY 01/08/20 10/29/20 History iron) tablet metoprolol tartrate 25 mg tablet 25 mg PO DAILY tab 01/08/20 10/29/20 History omeprazole 20 mg capsule,delayed 20 mg PO DAILY 01/08/20 10/29/20 History release paroxetine HCl 20 mg tablet 20 mg PO HS 01/08/20 10/29/20 History prednisone 5 mg tablet 5 mg PO DAILY 01/08/20 10/29/20 History oxybutynin chloride 5 mg tablet 5 mg PO BID PRN #60 tab 06/17/20 10/29/20 Rx Lupron Depot (6 Month) 0 mg IM .[id number] 09/02/20 10/29/20 History PreserVision AREDS-2 2 tab PO DAILY 09/16/20 10/29/20 History Xtandi 160 mg PO DAILY 09/16/20 10/29/20 History amlodipine 2.5 mg PO DAILY 09/16/20 10/29/20 History dicyclomine 20 mg PO Q6 PRN 09/16/20 10/29/20 History docusate sodium 300 mg PO DAILY 09/16/20 10/29/20 History amiloride 2.5 mg PO DAILY #30 tab 10/03/20 10/29/20 Rx calcitriol 1.5 mcg PO DAILY 30 Days #90 cap 10/03/20 10/29/20 Rx magnesium oxide 400 mg PO DAILY #30 cap 10/03/20 10/29/20 Rx potassium chloride [K-Tab] 40 meq PO BID 30 Days #120 tab 10/03/20 10/29/20 Rx sod phos di, mono-K phos mono 1 tab PO QID 30 Days #120 tab 10/03/20 10/29/20 Rx [Y-Fypu-[id number]] acetaminophen [Tylenol Extended 650 mg PO Q8H PRN 10/29/20 10/29/20 History Release] ondansetron 4 mg PO Q6H PRN 10/29/20 10/29/20 History oxycodone 10 mg PO Q4H PRN 10/29/20 10/29/20 History sennosides [Senna Lax] 17.2 mg PO DAILY 10/29/20 10/29/20 History Patient History Medical History (Updated 10/30/20 @ 14:18 by TAYA Mayfield) Acute UTI CVA, old, aphasia Palliative care encounter POLST (Physician Orders for Life-Sustaining Treatment) Prostate cancer (07/14/13) "Development of urinary difficulty, urinary retention, flaccid bladder, indwelling L[place] catheter PSA elevated at 15.360 July 14, 2013 Status post ultrasound core biopsies July 31, 2014 Adenocarcinoma [place] 3+3, 4+3, and 4+5 Initiation of Lupron therapy which continued until June 2017 Missed injection PSA radha to 89 Restart of Lupron therapy Recheck PSA September 29, 2017 0.390 PSA November 16, 2017 0.072" Surgical History H/O eye surgery History of prostate biopsy Hx of tonsillectomy Family History Sister Diabetes Nephrolithiasis Cancer Other No significant family history Social History Smoking Status: Never smoker Second Hand Exposure: No; Hx Alcohol Use: No Hx Substance Use: No Preferred Language: Kazakh Communication Ability: Impaired Communication Ability Comment: garbled speech, 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 Beliefs That Will Affect Care: None marital status: Single Current Living Situation: Personal Care Facility and Rehab Current Living Situation Comment: [facility] current occupational status: retired Feels Safe at Home: Yes Assistive Devices: Walker Review of Systems Review of Systems: [place] System Assessment Scale: Pain: 1/3 in abdomen Tiredness: 1/3 Shortness of breath: 1/3 Lack of Appetite: 1/3 Palliative Performance scale: 20% Physical Exam Constitutional: + ill appearing, + frail appearing and + disheveled ENMT: Nose: + dry nasal mucous membranes Respiratory: + cough Auscultation: + diminished lung sounds Cardiovascular: Rate/Rhythm: regular rate and regular rhythm Heart Sounds: normal S1 and normal S2 Extremities: normal capillary refill Gastrointestinal (Abdomen): normal bowel sounds, soft, nontender, no hepa tosplenomegaly Skin: normal turgor Psychiatric: Orientation: alert, oriented to person, oriented to place and cooperative Results & Data ([facility]) Vital Signs (Past 12 Hours) Vital Signs Temp Pulse Pulse Resp BP BP Pulse Ox 10/30/20 11:28 36.8 C 110 H 17 91/58 L 97 10/30/20 11:14 20 97 10/30/20 07:55 64 10/30/20 07:07 36.6 C 68 19 111/65 95 10/30/20 03:43 36.9 C 117 H 17 103/69 93 PG Care Time/CCT Total # of Minutes Spent Total Time Spent with Patient: Total time spent is greater than 50% in coordination of care (as documented) at patient's floor/unit and/or counseling patient: 100 minutes with > 50% of that time spent assessing the patient, discussing goals of care and collaborating with IDT Coding Level of Care Code 76913 Inpt Consult Level 3 Diagnoses Palliative care encounter Z51.5 Multi-organ system dysfunction Prostate cancer C61 Dehydration E86.0 CVA, old, aphasia I69.320 POLST (Physician Orders for Life-Sustaining Treatment) Z78.9 Time Spent (min) 100
--- NOTE | 2020-10-30 13:42 | Medical Student Progress Note ---
Date of Service October 30, 2020 Assessment & Plan (1) Palliative care encounter: Mr. France is an 80 y/o with a PMH of metastatic prostate cancer on xtandi, chronic indwellling palmer, depression, CVA, HTN, HLD here for a presenting symptom of increased confusion. Palliative Care Encounter: -Palliative care met with the patient to discuss options and he voiced that he wants to switch to comfort care. -Pt's sister, Jennyfer, is in agreement with the decision. -Pt will move back to [facility] with Hospice services hopefully tomorrow. We will get Dr. Mix's input. -POLST completed. Switched to DNR/DNI status. -Continue current medications. Transition to more comfort focused approach and discontinue current non comfort focused medications after discharge. -Has Roxicodone 10 mg PO Q4 PRN and he has utilized one dose over the past 24 hours. Pneumonia: -Right middle and lower lobe pneumonia seen on CXR. -Initiated oxygen at 2 lpm via NC. -Non-anion gap respiratory alkalosis -WBC 13.5 -Lactate 3.5 -Procalcitonin 0.96 -Continue Cefepime and Vancomycin started in the ER. -MRSA swab negative. -Possible aspiration pneumonia. Speech therapy consulted for swallowing evaluation. -CTA performed to rule out pulmonary embolism. Acute UTI: -Indwelling Palmer replaced. -Meatus with dried dark crust around Palmer tube. -Urine Cultures pending Multi-organ system dysfunction: -Multiple organs showing signs of injury -LFTs elevated with INR of 1.5 -BUN increased from admission last month. Creatinine increased by 0.3 -Troponin 0.09 -Support with IV rehydration with LR Acute Hypernatremia: -Resolved. Most likely from dehydration. -Hold amiloride -Na 145 Cl 115 Elevated LFTs: -AST 156; ALT 88; Alk Phos 220 -Should correct with hydration Prostate Cancer: -No acute changes -Continue Xtandi if organ perfusion improves. Hypocalcemia: -Chronic -Corrected with 2 grams calcium gluconate. Calcium 7.3. -PTH 945 Delirium: -Brain MRI obtained given abnormal head CT findings. -Brain MRI (poorly tolerated) shows unexplained mild left hemispheric white matter edema. No evidence of acute or subacute infarction. UPDATE: -AFTER DISCUSSION WITH PALLIATIVE CARE, WE WILL TRANSITION TO COMFORT CARE. DISCONTINUE ALL MEDICATIONS EXCEPT FOR PAIN CONTROL AND IV LACTATED RINGERS. -Ondansetron PRN for nausea. (2) Pneumonia: Laterality: unspecified laterality Lung location: unspecified part of lung Pneumonia type: due to unspecified organism Qualified Code(s): J18.9 - Pneumonia, unspecified organism (3) Multi-organ system dysfunction: (4) Dehydration: (5) Acute hypernatremia: (6) Prostate cancer: (7) CVA, old, aphasia: (8) Elevated liver enzymes: (9) Hypocalcemia: (10) Delirium: Admission and Anticipated Discharge Date Admission Date: October 29, 2020 Supervising Attestation Medical Student Supervision Note: I was personally present during medical student patient encounter and independently interviewed and examined the patient and verified the [place] history and physical, reviewed labs and image studies, discussed the case with Wilton Wellington and agree with the findings and care plan. Metabolic encephalopathy Sepsis POA sec to pneumonia and UTI Demand ischemia Severe protein malnutrition Prostate cancer Hx of severe hypocalemia sec to Xgeva with compensatory severe sec hyperparathyroidism Worse overall long-term prognosis. Discussion with family - palliative care consulted. Will pursue comfort care. Subjective Mr. France was laying in bed. Appearing to be uncomfortable and tremulous. He was lethargic, mostly mumbling responses to questions. He appeared to be weak, having difficulty sitting up in bed for a physical exam. He endorsed abdominal discomfort and some chest discomfort. He got upset when I was asking questions and began crying, but could not say what was upsetting him. Review of Systems Constitutional: + chills, + fatigue and + weakness; no fever Respiratory: + cough and + dyspnea; no wheezing Cardiovascular: + chest pain; no edema Gastrointestinal: + abdominal pain Musculoskeletal: + muscle weakness Physical Exam Constitutional: + acute distress, + ill appearing and + thin Eyes: PERRL, conjunctivae normal, anicteric sclerae normal visual allison by confrontation ENMT: external ear and nose normal, oropharynx normal Nose: + dry nasal mucous membranes and + epistaxis (mild dried blood on nares) Neck: + limited neck extension Respiratory: + respiratory distress, + labored breathing, + cough and + tachypneic Crackles present in the right lower lobe. clear to asucultation otherwise Cardiovascular: Rate/Rhythm: regular rate and regular rhythm Heart Sounds: + murmur (systolic murmur best heard in the axilla) Gastrointestinal (Abdomen): Inspection/Auscultation: abdomen normal to inspection Percussion/Palpation: + abdomen tender and abdomen soft; no hepatosplenomegaly Musculoskeletal: Extremities: extremities normal to inspection and + abnormal strength Skin: no rashes, warm and dry Neurologic: moves all extremities and + obtunded Psychiatric: Affect: + tearful affect Results & Data ([facility]) Vital Signs (Past 12 Hours) Vital Signs Temp Pulse Pulse Resp BP BP Pulse Ox 10/30/20 11:28 36.8 C 110 H 17 91/58 L 97 10/30/20 11:14 20 97 10/30/20 07:55 64 10/30/20 07:07 36.6 C 68 19 111/65 95 10/30/20 03:43 36.9 C 117 H 17 103/69 93
--- NOTE | 2020-10-30 16:27 | XCELERA ---
[id number]
[2020-10-30] MEDS ORDERED: ONDANSETRON INJ 2 MG/ML 2 ML VIAL IV PRN (17:59)
[2020-10-30] MEDS ORDERED: ATROPINE SULFATE 1% OP SOLN 5 ML BTL SL PRN (17:59)
[2020-10-30] MEDS ORDERED: ONDANSETRON 4 MG OD TAB SL PRN (17:59)
[2020-10-30] MEDS ORDERED: LORazepam 0.5 MG/1 ML VIAL IV PRN (17:59)
[2020-10-30] MEDS: haloperidoL 1 MG TAB PO PRN ×2 (18:41→21:49)
[2020-10-30] MEDS: MoRPHine SULFATE 5 MG/0.25 ML UDP PO PRN ×2 (19:31→23:00)
[2020-10-31] MEDS: haloperidoL 1 MG TAB PO PRN ×2 (00:54→01:57)
[2020-10-31] MEDS: MoRPHine SULFATE 5 MG/0.25 ML UDP PO PRN ×5 (02:03→14:36)
[2020-10-31] MEDS: oxyCODONE HCL IR 5 MG TAB (IMMEDIATE RELEASE) PO PRN (03:17)
--- NOTE | 2020-10-31 12:32 | Discharge Summary ---
Date of Service October 31, 2020 Admission HPI Per Admitting Provider 80 YOM with past medical history of metastatic prostate cancer, chronic indwelling Loredo catheter, depression, CVA, HTN, HLD, . Patient has hormone refractory metastatic prostate cancer originally diagnosed in 2015. Started on Xtandi 160 mg PO daily. He had been admitted for lower extremity edema requiring diuresis as well as electrolyte abnormalities. He was discharged on 09/04/20 and readmitted in 09/16/20 and then was discharged on 10/03/20 to [facility] [place]. He was brought to the emergency room today from his Oncologist office, where he was for his follow up appointment. He was confused more than his baseline. In the emergency room he had a head CT scan done and a CXR. CXR noted for right focal opacity that is new from his previous imaging. He is also noted to have multi organ dysfunction with electrolyte abnormalities, as well as a troponin of 0.067 without any dynamic ECG changes. He is confused as to where he is or how he got here. Patient will be admitted for secondary to pneumonia and urinary. Loredo catheter will be changed out and further investigate his neurological status. Will get blood cultures, VBG, and lactate. Medication compliance with ability to take all his medications and patient functional status likely playing a large role to his frequent admissions and abnormalities. Admission Exam Per Admitting Provider General: awake, alert, no apparent distress Head: Normocephalic, atraumatic ENT: PERRLA, tongue and mucous membranes dry Neuro: Alert to person, speech confused and slowed, strength intact bilaterally 4/5, sensation intact and equal all extremities, no focal deficits as he is moving all extremities Chest: equal rise and fall of the chest, no accessory muscle use, no heaves or thrills, scattered rhonchi throughout, decreased in the right lower lobe on auscultation, on room air Cardiac: Regular rate and rhythm, telemetry reviewed with sinus tach and occasional PVC, skin warm dry, cap refill <3 seconds, peripheral pulses +2 no JVD, 3/5 systolic murmur beast heard at axillae, trace lower extremity edema. GI: NABS x 4 quadrants, soft, nontender to palpation, no rebound, guarding or tenderness : Loredo to gravity draining dark urine, no pain to bladder with palpation. Extremities: No erythema, calfs nontender to palpation Psych: Normal mood and affect Skin: no rash or erythema, bruising to arm and hands Principal Diagnosis Metastatic prostate cancer, pneumonia Discharge Exam Constitutional + ill appearing and + frail appearing; no acute distress ansarca noted Neck normal visual inspection Respiratory normal respiratory effort, lungs clear to auscultation Cardiovascular Rate/Rhythm: + tachycardic Heart Sounds: + murmur (systolic murmur best heard in the axilla) Gastrointestinal (Abdomen) Inspection/Auscultation: normal bowel sounds Skin no rashes, warm and dry Psychiatric Orientation: + not alert Discharge Data Allergies Allergy/AdvReac Type Severity Reaction Status Date / Time No Known Allergies Allergy Unverified 10/29/20 18:04 Consultations 10/29/20 17:17 ED Decision to Admit Stat 10/30/20 09:57 Consult Palliative Care Routine Ordered Studies 10/29/20 15:28 CT head/brain wo con Stat 10/30/20 10:02 MR brain wo con Routine 10/30/20 10:46 CT angio chest PE protocol Routine Hospital Course (1) Palliative care encounter: Jose Daniel France came to [facility] due to increased confusion at an outpatient oncology visit. He was sent to the emergency department, where he had a CT head that was negative but did have a chest x-ray with a right focal opacity concerning for pneumonia. He was also found to have multiorgan dysfunction with electrolyte abnormalities as well as an elevated troponin without any EKG changes. Urinalysis also showed signs of urinary tract infection. Due to his complicated medical comorbidities and worsening status in light of his metastatic cancer, palliative care was consulted and Mr. France was able to express to them that he would like to shift to comfort care measures. His sister, Jennyfer, who the patient designated as his decision-maker when seen by palliative, also expressed that she was very much on board with transitioning the patient to comfort measures. POLST form was completed accordingly. As such, the decision was made to allow Mr. France to return to [facility] with Hospice Services. Total Time Total Time Spent Total Time Spent (In Minutes): See attending attestation Discharge Plan Discharge Items Patient Disposition: Hospice - Medical Facility Reason For Visit: PNEUMONIA Discharge Diagnosis: Metastatic prostate cancer, pneumonia Activity: Per Instructions section Non-emergency contact: Primary Care Provider Call non-emergency contact if: your symptoms worsen Follow-up/Referrals: Rebecca Vicente at [place] [Primary Care Provider] - Diet: Regular Addtl Attending Provider Instructions: Jose Daniel France came to [facility] due to increased confusion at an outpatient oncology visit. He was found to have pneumonia as well as multiorgan dysfunction with several electrolyte abnormalities. Per his and his sister's wishes Mr. France was transitioned to comfort care measures and all medical treatment except for pain control and hydration was discontinued. He will be discharged back to [facility] for hospice. Pending Studies at Discharge: No Stand-Alone Forms: My [facility] Skilled Items Patient informed of condition?: Yes DNR: Yes Discharge Level of Care: Other Communicable Disease: No Discharge Prognosis: Deteriorating Lines: None Urinary Catheter: Yes Medications and DC Order Prescriptions: New haloperidol 1 mg Tablet 1 mg PO Q4H PRN (Reason: agitation) 30 Days RF: 0 morphine concentrate 100 mg/5 mL (20 mg/mL) Solution 5 mg PO Q3H PRN (Reason: pain) Qty: 30 RF: 0 atropine 1 % Drops 4 drp sublingual Q1H PRN (Reason: secretions) Qty: 5 RF: 0 ondansetron 4 mg Tablet,Disintegrating 4 mg sublingual Q4H PRN (Reason: nausea and vomiting) Qty: 30 RF: 0 Continued oxycodone 5 mg Tablet 10 mg PO Q4H PRN (Reason: Pain) RF: 0 Discontinued atorvastatin 40 mg Tablet 40 mg PO QAM Qty: 0 RF: 0 polyethylene glycol 3350 [Miralax] 17 gram Powder In Packet 17 g PO DAILY PRN (Reason: Constipation) Qty: 527 RF: 0 aspirin [Aspirin Low Dose] 81 mg Tablet,Delayed Release (Dr/Ec) 81 mg PO DAILY Qty: 0 RF: 0 Fiber (psyllium husk-sugar) 3.4 gram/11 gram Powder 1 tsp PO DAILY Qty: 0 RF: 0 Boost 0.04 gram- 1 kcal/mL Liquid 1 ea PO DAILY Qty: 0 RF: 0 loratadine 10 mg Tablet 10 mg PO DAILY PRN (Reason: ALLERGIES) Qty: 0 RF: 0 oxybutynin chloride 5 mg tablet 5 mg PO BID PRN (Reason: bladder spasms) Qty: 60 RF: 1 ferrous sulfate 325 mg (65 mg iron) tablet 325 mg PO DAILY RF: 0 metoprolol tartrate 25 mg tablet 25 mg PO DAILY RF: 0 omeprazole 20 mg capsule,delayed release(DR/EC) 20 mg PO DAILY RF: 0 paroxetine HCl 20 mg tablet 20 mg PO HS RF: 0 prednisone 5 mg tablet 5 mg PO DAILY RF: 0 amlodipine 2.5 mg Tablet 2.5 mg PO DAILY RF: 0 docusate sodium 100 mg Capsule 300 mg PO DAILY RF: 0 dicyclomine 10 mg Capsule 20 mg PO Q6 PRN (Reason: Bladder Spasms) RF: 0 Xtandi 40 mg capsule 160 mg PO DAILY RF: 0 PreserVision AREDS-2 250-90-40-1 mg Capsule 2 tab PO DAILY RF: 0 amiloride 5 mg tablet 2.5 mg PO DAILY Qty: 30 RF: 0 calcitriol 0.5 mcg capsule 1.5 mcg PO DAILY 30 Days Qty: 90 RF: 0 magnesium oxide 400 mg magnesium capsule 400 mg PO DAILY Qty: 30 RF: 0 V-Eyuk-Pnujajv 250 mg tablet 1 tab PO QID 30 Days Qty: 120 RF: 0 potassium chloride [K-Tab] 20 mEq tablet extended release 40 meq PO BID 30 Days Qty: 120 RF: 0 Lupron Depot (6 Month) 45 mg syringe kit 0 mg IM .[id number] RF: 0 sennosides [Senna Lax] 8.6 mg Tablet 17.2 mg PO DAILY RF: 0 acetaminophen [Tylenol Extended Release] 650 mg Tablet Extended Release 650 mg PO Q8H PRN (Reason: Pain) RF: 0 ondansetron 4 mg Film 4 mg PO Q6H PRN (Reason: Nausea) RF: 0 Discharge Orders: Discharge Order (Routine); Ordered 10/31/20 Ordered By: Joe Perdue Admission Data Admit Date/Time: 10/29/20 20:23 Attending Provider: Najma Rich Admit Provider: Murtaza Ling Primary Care Provider: Rebecca Vicente [place] Other Providers: [facility] ; Rach Yadav ; Violette Story ; [facility] Supervising Physician Co-Signing Physician Notes Resident Physician Supervision Note: I independently interviewed and examined the patient and verified the [place] history and physical, reviewed labs and image studies and agree with resident Dr. Mckeon findings and care plan. Resident Activity Tracking Resident Involvement: Resident Care Provided Care Provided: Adult Hospital Medicine
[2020-10-31] MEDS ORDERED: VANCOMYCIN TROUGH ONE (19:30)
== END 2020-10-31 15:16 | disposition hospice, inpatient (51) ==
LOC: ED 14:30 → 2S 20:23 → INTOOBSV 20:23 → SUATTDRO 20:23 → 2S 21:17 → 3W 10-30 17:53